=== PATIENT | female | born 1980 | race Caucasian/White ===

== ENCOUNTER 2018-03-26 06:35 | Inpatient (IN) | payer MEDICARE, OTHER ==
[~2018-03-26] VITALS: Ht 177.8 cm; Wt 120.2 kg
[~2018-03-26 06:35] MED LIST: CBD; CYCLOBENZAPRINE10 MG; DEPO-PROVE150 MG/1 M IM; GABAPENTIN300 MG PO; GLUCOPHAGE1000 MG PO; LOSARTAN-HCTZ1 EAC1 PO; PRAVASTATIN SOD20 MG PO
[2018-03-26] MEDS ORDERED: LANTUS100 UNITS/ SUB-Q (06:55)
--- NOTE | 2018-03-26 11:09 | NUR ---
PT TO FLOOR AT 11 AM WITH SUP. MART. PT ABLE TO WALK TO BED INDEPENDENTLY. RATES PAIN 3.5/10. GIVEN WARM BLANKET FOR COMFORT.
--- NOTE | 2018-03-26 12:45 | NUR ---
PT CALLED FOR PRN PAIN MEDICATION. CALLED PHARM. TO HAVE THEM FIX EMAR. ADMINISTERED 0.4 MG DILAUDID. PT DENIES CONCERNS.
--- NOTE | 2018-03-26 13:50 | NUR ---
PT DECLINED PAIN MEDS. STATED THAT PAIN WAS TOLERABLE. DECLINED MOUTH SWABS AND LIP BALM. APPEARS COMFORTABLE. SITTING IN BED ON CELL PHONE.
--- NOTE | 2018-03-26 14:33 | NUR ---
CALLED DR SOLANO REGARDING [id number] QUESTION. REASSESSED BLOOD SUGAR. STILL 214. RUSS STATED HE WOULD BE OVER SHORTLY.
--- NOTE | 2018-03-26 14:57 | NUR ---
MED REC COMPLETE
--- NOTE | 2018-03-26 17:34 | NUR ---
RUSS IN TO SEE PT. SCD'S PLACED. AT BEDSIDE. GIVEN MORE MOUTH SWABS.
--- NOTE | 2018-03-26 19:05 | NUR ---
SHIFT REPORT RECEIVED. PATIENT RESTING IN BED. APPEARS COMFORTABLE. DENIES NEEDS. IV BOLUS INFUSING PER ORDER, IV SITE WNL. CALL LIGHT IN REACH.
--- NOTE | 2018-03-26 19:05 | NUR ---
ADMINISTERED SCHEDULED MEDS WITH SMALL AMT WATER. TOLERATED WELL. BOLUS RUNNING. PT ERIKAIES MYRIAM.
--- NOTE | 2018-03-26 20:30 | NUR ---
BLOOD GLUCOSE 198, 4 UNITS NOVOLIN GIVEN PER ORDER. PATIENT REPORTS PAIN IN ABD 7/10 AFTER AMBULATING TO THE BATHROOM. 4MG PRN MORPHINE PROVIDED. EVENING MEDS GIVEN PER ORDERS. IV FLUIDS INFUSING AT 125ML/HR. PATIENT IS AAOX4. LUNGS CLEAR. ABD ROUND, SOFT, TENDER THROUGHOUT. PAIN CENTRALIZED IN RUQ. CMS INTACT. SCDS IN USE. PATIENT MOVES EASILY AND IS INDEPENDENT IN THE ROOM.
--- NOTE | 2018-03-26 22:15 | NUR ---
EVENING ABX ADMINISTERED PER ORDER. PATIENT REPORTS PAIN WELL CONTROLLED. ORDERS FOUND TO BE NPO AT MIDNIGHT, OFFERED PATIENT SOME LIGHT FOOD AND DRINK OPTIONS. PATIENT NERVOUS TO EAT, TOLERATED SOME WATER AND JELLO.
--- NOTE | 2018-03-26 22:43 | NUR ---
VITALS AND I &OS DONE AND CHARTED. FRESH ICE WATER GIVEN. BEDSIDE TABLE AND CALL LIGHT WITHIN REACH.
--- NOTE | 2018-03-27 | NUR ---
PATIENT IS NPO AT THIS TIME. CUPS REMOVED FROM BEDSIDE. PATIENT AWARE. DENIES NEEDS AT THIS TIME.
--- NOTE | 2018-03-27 01:13 | NUR ---
PATIENT REPORTS PAIN AND MILD NAUSEA. PRN MORPHINE PROVIDED. WILL CONTINUE TO MONITOR.
--- NOTE | 2018-03-27 02:00 | NUR ---
BLOOD GLUCOSE 161. 2 UNITS NOVOLIN PER ORDER. PATIENT REPORTS PAIN CONTROLLED, /. NAUSEA HAS RESOLVED. NO NEEDS AT THIS TIME.
--- NOTE | 2018-03-27 02:14 | NUR ---
VITALS AND I&OS DONE AND CHARTED. BEDSIDE TABLE AND CALL LIGHT WITHIN REACH. NOTIFIED HER RN CASANDRA OF [facility]. 99.0 PT NEEDS NOTHING AT THIS TIME.
--- NOTE | 2018-03-27 05:00 | NUR ---
PATIENT REPORTS 8/10 PAIN. APPEARS VERY UNCOMFORTABLE. STATES THAT SHE JUST GOT DONE WITH THE BATHROOM, MOVEMENT INCREASES PAIN DRAMATICALLY. PRN MORPHINE PROVIDED. PATIENT DENIES OTHER COMFORT MEASURES.
--- NOTE | 2018-03-27 06:02 | NUR ---
PATIENT SLEPT ON AND OFF THROUGHOUT THE NIGHT. PAIN CONTROLLED WITH PRN MORPHINE. NPO SINCE MIDNIGHT. BLOOD GLUCOSE CHECKS Q6H. IV FLUIDS, LR @125. INDEPENDENT IN ROOM. SURGERY SCHEDULED FOR THIS AFTERNOON. CONSENT HAS BEEN SIGNED.
--- NOTE | 2018-03-27 07:55 | NUR ---
PATIENT IN BED, CRYING IN PAIN. PATIENT REPORTS SHE KNOWS SHE CAN HAVE MORE PAIN MEDS IN 5 MIN, AT 8AM. RICHELLE DESAI NOTIFIED WARM WASHCLOTH GIVEN FOR FACE. CALL LIGHT IN REACH
--- NOTE | 2018-03-27 07:56 | NUR ---
REPORT FROM DAY SHIFT NURSE, PATIENT AWAKE IN ROOM. REPORTS " I HAD A ROUGH NIGHT AND DIDN'T SLEEP WELL". FULL BODY ASSESMENT DONE, RATES PAIN 9/10 ON PAIN SCALE. ADMINISTERED IV MORPHINE FOR PAIN CONTROL. CALL TO OR CHARGE NURSE JOHNY TO SEND MESSAGE TO DR. SOLANO TO SEE IF HEPARIN IS DESIRED ON PRIOR TO SURGERY.
--- NOTE | 2018-03-27 08:57 | NUR ---
CBG 158, DISCUSSED DIABETES REGIME WITH DR. BURCIAGA, WHO VERBALIZED TO ADMINISTER 6 UNITS OF LEVEMIR AND HOLD OTHER MEDICATIONS. PATIENT VERBALIZED UNDERSTANDING. MORPHINE APPEARS TO HAVE RESOLVED PAIN, PATIENT RESTING WATCHING TELEVISION, BREATHING EASY. RATES PAIN 2/10 ON PAIN SCALE, TOLERABLE. VS STABLE.
--- NOTE | 2018-03-27 10:03 | NUR ---
PATIENT IN BED, EYES CLOSED. VITALS AND I/O'S RECORDED. CALL LIGHT IN REACH NO OTHER NEEDS
--- NOTE | 2018-03-27 14:06 | NUR ---
RN INFORMED ME THAT PT HAS BEEN TAKEN TO SURGERY. NO FAMILY PRESENT. WILL CONTINUE TO FOLLOW NEEDED
--- NOTE | 2018-03-27 15:10 | NUR ---
03/27/18 1510 Awa Rao 1457 PATIENT ARRIVES TO PACU UNRESPONSIVE TO PAIN OR VERBAL STIMULI, ORAL AIRWAY IN PLACE. PATIENT HAS VERY SIGNIFICANT SNORING RESP, REQUIRES REPOSITIONING AND RN TO HOLD AIRWAY. MASK ON AT 10 LITERS. 1508 PATIENT OPENS EYES TO PAINFUL STIMULI, THEN BACK TO SLEEP. ORAL AIRWAY IN PLACE, MASK AT 10 LITERS. 1509 PATIENT MOVING ARMS, REACHING FOR MASK, THEN BACK TO SLEEP. ORAL AIRWAY IN PLACE.
--- NOTE | 2018-03-27 16:15 | NUR ---
PATIENT TO FLOOR FROM SURGERY, RICHELLE LOZANO AND LLOYD IN ROOM FOR VITALS AND REPORT. CALL LIGHT IN REACH
--- NOTE | 2018-03-27 16:41 | NUR ---
PATIENT TO FLOOR FROM RECOVERY, VERBAL REPORT FROM ELBA RN. PATIENT VERY DROWSY, WILL RESPOND TO VERBAL STIMULI, FOLLOWING COMMANDS, BUT FALLS BACK TO SLEEP EASILY. PATIENT SATURATIONS DECLINED TO MID 80% CALLED RT TO ROOM, PLACED NASAL TRUMPET TO PROTECT AIRWAY, PATIENT TOLERATED WELL AND VERBALIZED OKAY TO INSERT, CONTINUES TO BE ON 2L NC. PUNCTURE SITES C/D/I. PATIENT REQUESTED TO URINATE, PROVIDED PATIENT WITH FRACTURE SALAS AND ABLE TO VOID 150 CLEAR YELLOW URINE. SKIN COOL TO TOUCH, PROVIDED WARM BLANKET. PATIENT WILL USE IS WITH INSTRUCTION, AND COUGH AND DEEP BREATHE. IV FLUIDS INFUSING 125ML/HR. [facility] [address] BURCIAGA, SLIDING SCALE 6 UNITS ADMINISTERED. ALSO DISCUSSED ELEVATED BP, ORDERS TO ADMINISTER 1400 DOSE OF LOSARTIN WHEN MORE AWAKE AND ABLE TO DRINK SOME FLUIDS.
--- NOTE | 2018-03-27 16:43 | HP ---
[facility] [address], [place] [address] Signed ADMISSION DATE: 03/26/2018 REASON FOR ADMISSION: Acute calculous cholecystitis and diabetes. HISTORY OF PRESENT ILLNESS: This obese 38-year-old white woman with a BMI of 38 has had right upper abdominal and central abdominal pain since Friday (today is ). Her pain started originally and has been persistent and unrelenting and has worsened. She presented to the emergency room at approximately 7 a.m., where she was evaluated by Dr. Wood, and noted to have findings suggestive of acute cholecystitis. Evaluation included a gallbladder ultrasound, which showed gallstones. Liver enzymes and CBC were normal, however. On the ultrasound, there were no other typical features of acute cholecystitis, specifically no gallbladder wall thickening, ductal dilatation or choledocholithiasis. There was fatty liver noted as well. I accept the patient in direct admission to the hospital for acute calculous cholecystitis. PAST MEDICAL HISTORY: Does include diabetes mellitus, as well as hypertension. CURRENT MEDICINES: Include, 1. Gabapentin for chronic pain. 2. Losartan. 3. Hydrochlorothiazide. 4. Medroxyprogesterone acetate (Depo-Provera). 5. Pravastatin. 6. Metformin. 7. Lantus insulin. ALLERGIES: She has allergies to Bactrim causing airway problems she says. SOCIAL HISTORY: She does not smoke. PAST SURGICAL HISTORY: Surgical history includes back operation and appendectomy. Notably, she is "disabled" related to chronic back pain. Electronically Signed By: HUNG SOLANO MD 03/27/18 4553 PATIENT NAME: ALLIE FERNÁNDEZ HISTORY AND PHYSICAL DATE OF : 78 REPORT #: [id number] PHYSICIAN: HUNG SOLANO MD PCP: DARRELL AMOS REPORT IS CONFIDENTIAL AND NOT TO BE RELEASED WITHOUT AUTHORIZATION [facility] [address] [place], [place] [address] Signed SOCIAL HISTORY: She is disabled, but also and has one 2-year-old child. She does smoke every day. Her last menstrual period was March 11, 2016. REVIEW OF SYSTEMS: She denies any shortness of breath. Her pain is mostly in the epigastric and right subcostal area. She is afraid to eat due to the pain. PHYSICAL EXAMINATION: GENERAL: An obese white woman with slightly dry mucous membranes. Trachea is midline. There is no carotid bruit. She does have additional hair in the neck areas suggestive of a polycystic ovary syndrome present, though that is not an established diagnosis. CHEST: Clear. HEART: Regular. ABDOMEN: Obese, but soft. There is marked tenderness in the epigastric and subcostal area. There is no ascites. EXTREMITIES: Show no clubbing, cyanosis, or edema. LABORATORY DATA: Show a white count of 6.5, hematocrit 38.7, platelets are 189,000. Chem profile shows a potassium of 3.3, bicarb of 18, creatinine 0.71, glucose was 320. Liver enzymes showed bilirubin elevated at 3.5. Liver enzymes were normal. Alkaline phosphatase was 66. Lipase was 20. Beta HCG was negative. Abdominal ultrasound was performed at approximately 9 a.m., images were reviewed confirming a somewhat dilated gallbladder, and a few shadowing gallstones in the midportion of the gallbladder. I see no sign of intrahepatic ductal dilatation. ASSESSMENT: The patient clearly has acute cholecystitis. With her diabetes, this is in a more input as many diabetic patients have visceral neuropathy. She has had symptoms since at least Friday, nearly four days at this point. She is admitted for further resuscitation and recommendation was made to her for cholecystectomy. Both laparoscopic and open techniques were discussed with her. Alternative therapies are lacking in this situation. She needs additional fluids, continued parenteral antibiotics and will need additional management of her blood glucose given her hyperglycemia. We will probably consult hospitalist for assistance in that regard, as well as recommendations on hypertension control. We will plan for operation tomorrow once she is clinically stabilized. Electronically Signed By: HUNG SOLANO MD 03/27/18 1643 PATIENT NAME: ALLIE FERNÁNDEZ HISTORY AND PHYSICAL DATE OF : 78 REPORT #: [id number] PHYSICIAN: HUNG SOLANO MD PCP: DARRELL AMOS REPORT IS CONFIDENTIAL AND NOT TO BE RELEASED WITHOUT AUTHORIZATION [address] [address] Signed MD DASH Regalado/JUAN DIEGOL /[id number] cc: DEB Major MD Copies: DARRELL AMOS WILLIAM S MD ~ Electronically Signed By: HUNG SOLANO MD 03/27/18 1643 PATIENT NAME: ALLIE FERNÁNDEZ HISTORY AND PHYSICAL DATE OF : 78 REPORT #: [id number] PHYSICIAN: HUNG SOLANO MD PCP: DARRELL AMOS REPORT IS CONFIDENTIAL AND NOT TO BE RELEASED WITHOUT AUTHORIZATION
--- NOTE | 2018-03-27 17:24 | EKG ---
[facility] [address] [facility] [place], [place] [address] Signed Normal sinus rhythm Possible Inferior infarct (cited on or before 29-DEC-2017) Abnormal ECG When compared with ECG of 29-DEC-2017 14:49, No significant change was found Confirmed by JAIDEN BURCIAGA MD ([id number]) on 03/27/2018 5:24:14 PM Electronically Signed By: JAIDEN BURCIAGA MD 03/27/18 1724 PATIENT NAME: ALLIE FERNÁNDEZ Electrocardiogram DATE OF : 78 PHYSICIAN: JAIDEN BURCIAGA MD REPORT #: [id number] REPORT IS CONFIDENTIAL AND NOT TO BE RELEASED WITHOUT AUTHORIZATION
--- NOTE | 2018-03-27 18:00 | NUR ---
PATIENT UP TO BATHROOM VOIDED 800 DARK URINE. COMPLAINTS OF FEELING HOT AND NAUSIA. PATIENT BACK TO BED AND SYMPTOMS RELIEVED. TRMARINAET REMOVED 1730, WHEN TO ROOM WHO HAD CONVERSATION WITH PATIENT ABOUT LIVER CIRRHOSIS AND WHAT DR. SOLANO HAD DISCUSSED WITH HIM ON THE PHONE. PATIENT STILL VERY DROWSY, DISCUSSED FUNCTION OF A GALL BLADDER WITH PATIENT AND FAMILY. CONTINUIOUS PULSE OX ON, SCDS ON. 3L NC 93%, POST OP VS STABLE. PATIENT EASY TO WAKE WITH VERBAL CUES. PUNCTURE SITES C/D/I.
--- NOTE | 2018-03-27 19:00 | NUR ---
SHIFT REPORT RECEIVED. PATIENT RESTING IN BED. IS ALERT AT THIS TIME. 3L NC IN USE. O2 SAT 94%. SHE REPORTS FEELING MORE AWAKE NOW AND REQUEST TO USE THE BATHROOM. SBA TO BATHROOM. PATIENT TOLERATED WELL. SHE REPORTS SLIGHT NAUSEA BUT STATES IT GOES AWAY WHEN SHE IS LAYING DOWN. EMESIS BAG IN REACH. PAIN WELL CONTROLLED. NO OTHER NEEDS AT THIS TIME. CONTINUOUS PULSE OX IN USE.
--- NOTE | 2018-03-27 20:15 | NUR ---
PATIENT WAS SLEEPING SOUNDLY. SHE REPORTS FEELING HOT AND NAUSEOUS. BLOOD GLUCOSE 296, 8 UNITS NOVOLIN GIVEN. PATIENT TOLERATING 1L NC WITH O2 SAT 95%. SHE IS DROWSEY BUT ORIENTED. HOB ELEVATED. 12.5 MG PHENERGAN GIVEN OVER 10MINS ON IV PUMP. PATIENT ON CONTINUOUS PULSE OX. WILL CONTINUE TO MONITOR.
--- NOTE | 2018-03-27 20:36 | NUR ---
ROUNDED CHARGE. PATIENT IS RESTING IN BED WITH EYES CLOSED. PATIENT IS ON RA. PATIENTS PULSE OX READINGS ARE WNL. RICHELLE GUAJARDO IN THE ROOM. CALL LIGHT IN REACH.
--- NOTE | 2018-03-27 20:52 | NUR ---
PATIENT'S BP WAS FOUND TO BE ELEVATED BY RIGOBERTO DESAI. RN PERFORMED MANUAL BP WITH LARGE BP CUFF ON UPPER ARM. FOUND TO BE CONSISTENT WITH VS MACHINE FINDINGS. 164/108 WITH HR OF 102. NOTIFIED. WILL REASSESS IN 30MINS PER MD REQUEST.
--- NOTE | 2018-03-27 21:20 | NUR ---
EVENING MEDS GIVEN PER ORDER. PATIENT WAS SLEEPING SOUNDLY. 1L NC, 98% O2 SAT. HOB ELEVATED. WOKE EASILY TO VOICE AND TOUCH. DENIES PAIN, STATES "JUST A LITTLE SORE'. ASSISTED PATIENT UP TO BATHROOM, SHE AMBULATED SLOWLY BUT FELT STEADY ON HER FEET. LAP SITES COVERED WITH STERI STRIPS, SMALL AMOUNT BLOOD NOTED AT SITE. CMS INTACT, SCDS IN USE. IV FLUIDS INFUSING PER ORDER. SITE WNL. NO NEEDS AT THIS TIME. SLIGHTLY NAUSEOUS WITH MOVEMENT. EMESIS BAG AVAILBALE. PULSE OX 96% ON ROOM AIR, LEFT NC OFF AT THIS TIME. WILL CONTINUE TO MONITOR.
--- NOTE | 2018-03-27 21:30 | NUR ---
RIGOBERTO FEBRUARY PERFORMED MANUAL BP, 140/90. AWARE.
--- NOTE | 2018-03-27 22:46 | NUR ---
ABX ADMINISTERED. PATIENT SLEEPING SOUNDLY, WOKE EASILY TO VOICE. DENIED PAIN OR NAUSEA. O2 SAT 96% ON ROOM AIR. IV FLUIDS INFUSING PER ORDER. CALL LIGHT IN REACH.
--- NOTE | 2018-03-28 00:30 | NUR ---
ASSITED PATIENT TO THE BATHROOM. SHE FELT MORE STEADY THIS TIME. REPORTS PAIN IS MINIMAL. JUST SORE. SHE IS GETTING UP TO GO TO THE BATHROOM RATHER FREQUENTLY WITH LARGE AMOUNTS OF URINE. SHE IS TOLERATING ORAL FLUIDS AND IS EATING SOME JELLO. TOLERATING ROOM AIR.
--- NOTE | 2018-03-28 02:02 | NUR ---
VITALS AND I&OS DONE AND CHARTED. BEDSIDE TABLE AND CALL LIGHT WITHIN REACH. PT NEEDS NOTHING ELSE AT THIS TIME.
--- NOTE | 2018-03-28 02:30 | NUR ---
PATIENT IS MORE ALERT NOW. SHE IS ASKING QUESTIONS ABOUT HER SURGERY, POSSIBLE DISCHARGE, AND THE FINDINGS FROM HER SURGERY RELATED TO HER LIVER. VERBAL EDUCATION AND PLAN OF CARE PROVIDED. PATIENT IS FEELING MORE PAINFUL NOW, WITH MINIMAL NAUSEA. PROVIDED PRN PERCOCET AND ZOFRAN. PATIENT EATING A SECOND JELLO. DRINKING ORAL FLUIDS TOO. BLOOD GLUCOSE WAS 264, 6 UNITS NOVOLIN PER ORDERS.
--- NOTE | 2018-03-28 04:50 | NUR ---
PATIENT UP TO BATHROOM INDEPENDENTLY THIS TIME. SHE IS MUCH MORE ALERT AND MOVING EASILY. SHE IS HOPING FOR DISCHARGE TODAY. PAIN WELL CONTROLLED AT THIS TIME. MINIMAL APPETITE BUT TOLERATING CLEAR LIQUIDS. NO MORE NAUSEA.
--- NOTE | 2018-03-28 07:01 | NUR ---
PATIENT WAS VERY DROWSEY MOST OF THE SHIFT. OUTPUT QS. NAUSEA IMPROVED. TOLERATING CLEARS AND FULL LIQUID. ADA REGULAR FOR BREAKFAST. PRN PERCOCET X1. PAIN IS MINIMAL 3-/. IV ABX. LAP SITES X5 W/STERI STRIPS, WNL. SCDS. MUCH MORE ALERT THIS MORNING. INDEPENDENT IN ROOM.
--- NOTE | 2018-03-28 07:09 | NUR ---
SPOKE TO . PATIENT SALINE LOCKED NOW. SHE WAS REQUESTING A SHOWER, HE SAYS NOT UNTIL TOMORROW.
--- NOTE | 2018-03-28 10:00 | NUR ---
PATIENT UP AMBULATING IN HALLS. COMPLAINTS OF DULL ACHE. EATING REGULAR FOOD. NO NAUSEA OR VOMITING. PATIENT WIPED SELF DOWN. VS STABLE, INSCION SITES APPEARS C/D/I WITH STERI STRIPS INTACT. FULL BODY ASSESMENT DONE.
[2018-03-28] MEDS ORDERED: IBUPROFEN400 MG PO (12:01)
[2018-03-28] MEDS ORDERED: OXYCODONE HCL5 MG PO (12:01)
--- NOTE | 2018-03-28 12:18 | OR ---
[facility] [address], [place] [address] Signed DATE OF OPERATION: 03/27/2018 SURGEON: Hung Solano MD PREOPERATIVE DIAGNOSES: 1. Acute calculous cholecystitis. 2. Morbid obesity. POSTOPERATIVE DIAGNOSES: 1. Acute calculous cholecystitis. 2. Morbid obesity. 3. Unexpected stage IV cirrhosis of liver (advanced nodular cirrhosis). PROCEDURE: 1. Laparoscopic cholecystectomy with cholangiogram (prolonged complicated and difficult). 2. Surgeon-directed fluoroscopy. 3. Laparoscopic liver biopsy. ANESTHESIA: General endotracheal Hung Bolaños CRNA. INDICATION: This 38-year-old white woman is a patient of [facility], and presented to the emergency room yesterday with severe right upper abdominal pain. A gallbladder ultrasound was performed, which showed gallstones within the gallbladder, and distended gallbladder wall. She has been fluid resuscitated and given intravenous antibiotics, and prepared for consideration of cholecystectomy for acute calculous cholecystitis. It is notable that her bilirubin preoperatively is 3.7, but other actual liver enzymes are normal including alkaline phosphatase. Platelet count was 125,000. The patient understands the risks of bleeding, infection, need for open procedure and other unforeseen complications, including need for common duct exploration and wished to proceed with operation. FINDINGS: There was a small amount of abdominal ascites upon entry into the abdomen. It quite clearly was advanced cirrhosis of the liver. The gallbladder indeed was quite markedly inflamed and distended. The medial segment of the left lobe of the liver was somewhat cumbersome in relation to the gallbladder itself. With intensely meticulous care the Electronically Signed By: HUNG SOLANO MD 03/28/18 1218 PATIENT NAME: ALLIE FERNÁNDEZ OPERATIVE REPORT DATE OF : 78 REPORT #: [id number] PHYSICIAN: HUNG SOLANO MD PCP: DARRELL AMOS REPORT IS CONFIDENTIAL AND NOT TO BE RELEASED WITHOUT AUTHORIZATION [facility] [address], [place] [address] Signed gallbladder was excised laparoscopically from a top-down configuration. Cholangiogram was performed, which showed no evidence of filling defect of the biliary tree. A relatively long cystic duct. The operation was extremely complicated on the basis of fibrosis of the liver and so forth, but was accomplished safely. It took four times longer than usual for sure. DESCRIPTION OF PROCEDURE: The patient was brought to the operating room, given a general endotracheal anesthetic. Preoperative antibiotic Ancef had been given. Sequential compression device stockings used. Heparin was not given, given her marginal platelet count of 125,000. After satisfactory general endotracheal anesthesia, the abdomen was prepared with a chlorhexidine solution, and draped sterilely. She is quite markedly obese. The infraumbilical incision was made and using an open Fely cannula technique pneumoperitoneum was achieved to a level of 14 mmHg of carbon dioxide gas. Entry into the abdomen was notable for some clear ascites in the peritoneal cavity, and what appeared to be somewhat dilated umbilical vein in the region of the umbilicus. There was no untoward bleeding, however. Pneumoperitoneum was achieved to level 14 mmHg of carbon dioxide gas. Intraabdominal inspection undertaken showed a small amount of ascites, but marked and impressive nodular changes of the liver consistent with advanced cirrhosis. The gallbladder itself was definitely markedly inflamed. It is quite distended as well. At this point consideration was made for possible open cholecystectomy given her advanced cirrhosis and mindful of her acute cholecystitis. On the other hand, it would be preferable for recovery standpoint based on her obesity and ascites if the laparoscopic approach could be safely accomplished. On that basis I proceeded with a laparoscopic approach. Three additional trocars were placed in usual configuration in the subxiphoid, right midclavicular, and right anterior axillary line. The gallbladder was tense, distended, and although it could be grasped and elevated, the stiffness of the liver related to the cirrhosis precluded much cephalad traction. On that basis, a trocar device was used to decompress dark clean bile from the gallbladder. The puncture site was secured with an endo-loop to minimize biliary leakage in the face of mild ascites. The gallbladder was grasped in the midportion and retracted laterally. Attempts at dissection in the infundibulum were quite unsuccessful due to hypertrophy of a regional liver lobe on the left side of the gallbladder fossa. An additional 5 mm port was placed in the epigastric area allowing for a fan retractor for better exposure, but it was unsuccessful. On that basis, it was deemed most appropriate to dissect the gallbladder from a top-down configuration. Electronically Signed By: HUNG SOLANO MD 03/28/18 1218 PATIENT NAME: ALLIE FERNÁNDEZ OPERATIVE REPORT DATE OF : 78 REPORT #: [id number] PHYSICIAN: HUNG SOLANO MD PCP: DARRELL AMOS REPORT IS CONFIDENTIAL AND NOT TO BE RELEASED WITHOUT AUTHORIZATION [address] [address] Signed The gallbladder was grasped cephalad and peritoneum, and medial superior aspect of the gallbladder was incised with electrocautery and with meticulous care the gallbladder was dissected free from the liver bed in a top-down configuration. A fan retractor was ultimately placed to retract the liver cephalad through a lateral port site. I had intended to continue dissection until and unless specific impediment to further dissection was encountered, specifically bleeding or other anatomic factors, but with extreme caution and care dissection carried down largely in the avascular plane unfurling the largely intrahepatic gallbladder more fully down to the infundibulum. In this region a few small blood vessels, which appeared to be rather dilated were carefully secured with clips and ultimately the infundibulum and cystic duct could be identified. I was quite astounded at this myself, as the dissection was impressively difficult. By this point, the cystic duct was well demonstrated. A clip was applied across the gallbladder, and cystic duct junction and a transverse choledochotomy made in the cystic duct. Retrograde milking of the cystic duct showed egress of clear bile. Using the Andrew type cholangiocatheter intraoperative cholangiography was undertaken showing free flow of contrast in biliary tree with prompt emptying into the duodenum. Retrograde filling of the more proximal biliary tree was normal. The cystic duct was rather elongated with plenty of room to apply clips without encumbrance of the common hepatic duct. The catheter was removed, and the cystic duct was triply clipped and divided. The gallbladder was placed in an endobag, and extracted through the infraumbilical port site, and opened on the back table and found to have multiple small dark black gallstones. Irrigation of the hepatic space showed good hemostasis. Raheel hemostatic agent was insufflated into the subhepatic space nevertheless, after copious irrigation was completed. Excess irrigation fluid was suctioned free. I had considered placement of a drain, but given the high probability of worsening of ascites postoperatively, the drain was held in abeyance, and not placed after all. Plans were then made for liver biopsy. Through the epigastric area under direct visualization, a biopsy device was used to biopsy the medial segment of left lobe of the liver. A good core was obtained. The puncture site was secured with electrocautery without problem. The trocars were then removed under direct visualization showing no sign of bleeding. The infraumbilical fascial incision was reapproximated with interrupted 0 Vicryl suture. All wounds were copiously irrigated with saline solution. Skin closed with interrupted 3-0 Vicryl. Special care was made to provide watertight closure of the incisions on the reasonably high probability of postoperative ascites to some degree given the cirrhosis and general anesthetic and so forth. The operation was definitely prolonged, complicated, and difficult lasting four times longer than usual. Electronically Signed By: HUNG SOLANO MD 03/28/18 1218 PATIENT NAME: ALLIE FERNÁNDEZ OPERATIVE REPORT DATE OF : 78 REPORT #: [id number] PHYSICIAN: HUNG SOLANO MD PCP: DARRELL AMOS REPORT IS CONFIDENTIAL AND NOT TO BE RELEASED WITHOUT AUTHORIZATION [address] [address] Signed MD DASH Regalado/MARCIANO /[id number] cc: MD Jaiden Arciniega, MD Jose Miguel Wood, DEB Mcduffie Copies: REBEL TIM MD,JAIDEN WOOD,DARRELL CORTEZ MD ~ Electronically Signed By: HUNG SOLANO MD 03/28/18 1218 PATIENT NAME: ALLIE FERNÁNDEZ OPERATIVE REPORT DATE OF : 78 REPORT #: [id number] PHYSICIAN: HUNG SOLANO MD PCP: DARRELL AMOS REPORT IS CONFIDENTIAL AND NOT TO BE RELEASED WITHOUT AUTHORIZATION
--- NOTE | 2018-03-29 13:01 | DS ---
[facility] [address], [place] [address] Signed ADMISSION DATE: 03/26/2018 DISCHARGE DATE: 03/28/2018 REASON FOR ADMISSION: This obese (BMI 38) 38-year-old white woman is admitted to the hospital with clinical findings of acute calculous cholecystitis. HISTORY OF PRESENT ILLNESS: She presented to the emergency room and was evaluated by Dr. Jose Miguel Wood. The findings clinically are suggestive of acute cholecystitis. Her pain had started on Friday (day of admission, ). Evaluation included gallbladder ultrasound, which showed gallstones. Liver enzymes and CBC were normal; however, bilirubin was elevated to 3.7. She had relatively low platelets of 123,000. PAST MEDICAL HISTORY: She has a past medical history of diabetes mellitus, as well as hypertension. PAST SURGICAL HISTORY: Surgical history included history of back operation, appendectomy. She is considered disabled related to chronic back pain. PERTINENT PHYSICAL EXAMINATION: GENERAL: An obese white woman, slightly dry mucous membranes. NECK: Trachea midline without carotid bruit. She has additional hair of the anterior neck suggestive of polycystic ovarian syndrome not an established diagnosis. CHEST: Clear. HEART: Regular. ABDOMEN: Obese, but soft. There is marked tenderness in the epigastric and right subcostal area. There is no ascites. She has no clubbing, cyanosis, or edema. LABORATORY STUDIES: Showed a white count of 6.5, hematocrit 38.7, platelets 189,000, subsequently 123,000, Chem profile showed potassium of 3.3, a bicarb of 18, creatinine 0.71, glucose 320. Liver enzymes showed bilirubin elevated at 3.5. Liver enzymes were otherwise normal. Alkaline phosphatase 66, lipase was 20. Beta HCG negative. HOSPITAL COURSE: She was admitted for acute calculous cholecystitis, and mindful of her diabetes, obesity, and so forth, consultation was undertaken with Dr. Brooks the hospitalist for blood sugar management. An insulin sliding scale was initiated. Electronically Signed By: HUNG SOLANO MD 03/29/18 1301 PATIENT NAME: ALLIE FERNÁNDEZ DISCHARGE SUMMARY DATE OF : 78 REPORT #: [id number] PHYSICIAN: HUNG SOLANO MD PCP: DARRELL AMOS REPORT IS CONFIDENTIAL AND NOT TO BE RELEASED WITHOUT AUTHORIZATION [facility] [address], [place] [address] Signed After adequate fluid resuscitation, she went to operation on March 27, 2018. Laparoscopy was performed, which showed the unexpected findings of low-grade ascites and markedly advanced nodular cirrhosis of the liver. The gallbladder was acutely inflamed. A laparoscopic cholecystectomy with cholangiogram was able to be performed despite the bulky hypertrophied segmentation of the liver, and marked nodularity of the liver related to cirrhosis. A top-down technique was used and cholangiogram was performed which was normal. Laparoscopic liver biopsy was performed as well. The operation was prolonged, complicated, and difficult on the basis of her obesity and cirrhosis. Postoperatively she did quite well. She tolerated a regular diet soon after operation. Lab studies done today following operation showed hematocrit of 37.7, white count of only 7.8, platelets a 192,000, an INR of 1.0. Hepatitis serologies are pending and Chem profile post op showed a total bilirubin of 3.41, which was mostly indirect UNconjugated bilirubin. Her liver enzymes remained normal otherwise with alkaline phosphatase of 69. Her LDH was 214. SheAs tolerated discharge criteria and is doing well. Despite her underlying cirrhosis she is considered a reasonable candidate for discharge at this time. It remains uncertain the source of her advanced liver disease (cirrhosis). She has not had IV drug use in the past. Has never had a transfusion and has not had an alcohol abuse history. She does have distant history of significant longstanding back pain, for which oral analgesics, including Tylenol were used --possibly in excess. The liver biopsy and serologies are pending. She will be seen as expected in the next few weeks in the office, and we will review further steps to take regarding cirrhosis. She was instructed to avoid lifting 10 pounds for the next month, to keep Steri-Strips on. She is permitted to shower tomorrow. DISCHARGE MEDICATIONS: 1. Ibuprofen 400 mg p.o. q.6 hours as needed for pain. 2. Oxycodone 5 mg 1-2 p.o. q.4 hours p.r.n. pain, #20. She will continue with her gabapentin 300 mg p.o. t.i.d., metformin 1000 mg p.o. two times a day. 3. Losartan/hydrochlorothiazide 100/25 one p.o. daily. 4. Depo-Provera injection q. three months. 5. Pravastatin 20 mg p.o. daily. 6. Lantus insulin 12 units subcutaneous at bedtime. She will discontinue Flexeril at Electronically Signed By: HUNG SOLANO MD 03/29/18 1301 PATIENT NAME: ALLIE FERNÁNDEZ DISCHARGE SUMMARY DATE OF : 78 REPORT #: [id number] PHYSICIAN: HUNG SOLANO MD PCP: DARRELL AMOS REPORT IS CONFIDENTIAL AND NOT TO BE RELEASED WITHOUT AUTHORIZATION [facility] [address] [place] [address] Signed this time. FOLLOW UP PLAN: She will return to see me as previously described in 4-6 weeks. I have asked to make a plan with her primary provider DEB Angulo in the next week or two as well. She will avoid hepatotoxic drugs, including Tylenol for the time being, and will not drink alcohol. DISCHARGE DIAGNOSES: 1. Acute calculus cholecystitis with occult advanced cirrhosis of liver. 2. Status post laparoscopic cholecystectomy (top-down method with cholangiogram) normal, and Biopty gun biopsy of liver. 3. Chronically elevated bilirubin 3.1. 4. Morbid obesity. 5. Distant history of chronic back pain with ongoing disability. 6. Diabetes mellitus. 7. Childbirth (child [age] years of age). MD DASH Regalado/MARCIANO /[id number] cc: DEB Major MD Lohith Veerappa Reddy, MD Copies: DARRELL AMOS WILLIAM S MD REDDY, LOHITH VEERAPPA MD ~ Electronically Signed By: HUNG SOLANO MD 03/29/18 1301 PATIENT NAME: ALLIE FERNÁNDEZ DISCHARGE SUMMARY DATE OF : 78 REPORT #: [id number] PHYSICIAN: HUNG SOLANO MD PCP: DARRELL AMOS REPORT IS CONFIDENTIAL AND NOT TO BE RELEASED WITHOUT AUTHORIZATION
== END 2018-03-28 14:00 | disposition home or self-care (01) | DRG 418 ==
LOC: ED 06:35 → MS 10:21
PROVIDERS: ADMIT Surgery
PROC: 0FB24ZX Excision of Left Lobe Liver, Percutaneous Endoscopic Approach, Diagnostic (ICD-10-PCS; 2018-03-27)
PROC: BF101ZZ Fluoroscopy of Bile Ducts using Low Osmolar Contrast (ICD-10-PCS; 2018-03-27)
PROC: 0FT44ZZ Resection of Gallbladder, Percutaneous Endoscopic Approach (ICD-10-PCS; principal; 2018-03-27 13:00)
DX: K80.00 Calculus of gallbladder with acute cholecystitis without obstruction (principal); R18.8 Other ascites; E66.01 Morbid (severe) obesity due to excess calories; E11.65 Type 2 diabetes mellitus with hyperglycemia; I10 Essential (primary) hypertension; G89.29 Other chronic pain; K74.69 Other cirrhosis of liver; F17.210 Nicotine dependence, cigarettes, uncomplicated; E80.6 Other disorders of bilirubin metabolism; M54.9 Dorsalgia, unspecified; I25.10 Atherosclerotic heart disease of native coronary artery without angina pectoris; E78.5 Hyperlipidemia, unspecified; Z79.4 Long term (current) use of insulin; Z79.891 Long term (current) use of opiate analgesic; Z79.899 Other long term (current) drug therapy; Z68.38 Body mass index [BMI] 38.0-38.9, adult; Z88.1 Allergy status to other antibiotic agents; Z88.2 Allergy status to sulfonamides
CPT/HCPCS: 00790; 36415; 74300; 76705; 80053; 81001; 82247; 82465; 83615; 83690; 83735; 84100; 84478; 84550; 84703; 85025; 85610; 86704; 86706; 86709; 86803; 87340; 88304; 88307; 88313; 93005; 93010; 94762; J0330; J0690; J1100; J1170; J1885; J2250; J2270; J2405; J2543; J2550; J2704; J2765; J3010; J7030; J7120; Q9967

== ENCOUNTER 2019-09-09 15:39 | Emergency (ER) | payer MEDICARE, OTHER ==
[~2019-09-09] VITALS: Ht 177.8 cm; Wt 112.5 kg
--- OUTSIDE RECORDS SUMMARY | ~2019-09-09 | XMS | Encounter Summary ---
Demographics + + + | Address | [address] | | | [place] [address] | + + + | Home Phone | | + + + | Preferred Language | Unknown | + + + | Marital Status | | + + + | Mormonism Affiliation | NON | + + + | Race | White | + + + | Ethnic Group | Not or | + + + Author + + + | Author | [facility] | + + + | Organization | [facility] | + + + | Address | Unknown | + + + | Phone | Unavailable | + + + Support + + +---------+ + | Name | Relationship | Address | Phone | + + +---------+ + | Abhi Justice | ECON | Unknown | | + + +---------+ + Care Team Providers + +------+ + | Care Merchandise Director Name | Role | Phone | + +------+ + | Christofer Holguin NP | PCP | | + +------+ + Encounter Details +--------+ + + + + | Date | Type | Department | Care Team | Description | +--------+ + + + + | 06/24/ | Transcribe | [facility] | Transcribe | | | 2019 | Orders | [facility] [address] | Encounter, Provider, | | | | | Dany Garza Mailcode: | [address] | | | | | [address] [place] [facility] | [place] [address] | | | | | [facility], | | | | | | [address] | | | | | | [place], [place] | | | | | | [address] | | | | | | [phone] | | | +--------+ + + + + Social History + +-------+ +--------+------+ | Tobacco Use | Types | Packs/Day | Years | Date | | | | | Used | | + +-------+ +--------+------+ | Current Every Day | | 0.5 | | | | Smoker | | | | | + +-------+ +--------+------+ + +---+---+---+ | Smokeless Tobacco: | | | | | Never Used | | | | + +---+---+---+ + + +---------+ + | Alcohol Use | Drinks/Week | oz/Week | Comments | + + +---------+ + | No | | | | + + +---------+ + + + + | Sex Assigned at | Date Recorded | | | | + + + | Not on file | | + + + + + + + | Job Start Date | Occupation | Industry | + + + + | Not on file | Not on file | Not on file | + + + + + + + + | Travel History | Travel Start | Travel End | + + + + + + | No recent travel history available. | + + documented as of this encounter Plan of Treatment +--------+ + + + + | Date | Type | Specialty | Care Team | Description | +--------+ + + + + | 09/22/ | Office | Hepatology | Eva Hogan, | | | 2018 | Visit | | [facility] [address] | | | | | | [address] | | | | | | [place] | | | | | | [address] | | | | | | [phone] | | | | | | | | +--------+ + + + + | 09/22/ | Hospital | | Carroll Sosa MD | | | 2018 | Encounter | | [address] | | | | | | [facility] [place], | | | | | | [place] [address] | | | | | | [phone] | | | | | | | | +--------+ + + + + | 09/22/ | Appointment | Procedural Care Unit | | | | 2018 | | | | | +--------+ + + + + | 09/22/ | Appointment | Gastroenterology | Carroll Sosa MD | | | 2018 | | | [address] | | | | | | [place], | | | | | | [place] [address] | | | | | | [phone] | | | | | | | | +--------+ + + + + +------+ +--------+ + + | Name | Type | Priori | Associated Diagnoses | Order Schedule | | | | ty | | | +------+ +--------+ + + | EGD | Procedures | Routin | Liver cirrhosis | Expected: 06/24/2019 | | | | e | secondary to FISH | | | | | | (HCC) | | +------+ +--------+ + + documented as of this encounter Visit Diagnoses + + | Diagnosis | + + | 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
--- OUTSIDE RECORDS SUMMARY | ~2019-09-09 | XMS | Clinical Summary ---
Demographics + + + | Address | [address] | | | [place] [address] | + + + | Home Phone | | + + + | Preferred Language | Unknown | + + + | Marital Status | | + + + | Shinto Affiliation | NON | + + + | Race | White | + + + | Ethnic Group | Not or | + + + Author + + + | Author | NON REVENUE LOCATIONS | + + + | Organization | NON REVENUE LOCATIONS | + + + | Address | Unknown | + + + | Phone | Unavailable | + + + Support + + +---------+ + | Name | Relationship | Address | Phone | + + +---------+ + | Abhi Cordero | ECON | Unknown | | + + +---------+ + Care Team Providers + +------+ + | Care Pediatric Physician Assistant Name | Role | Phone | + +------+ + | Christofer Holguin NP | PCP | | + +------+ + Source Comments BETO is fully live on both [facility] Ambulatory and [facility] InPatient.[facility] Allergies + + + + + + | Active Allergy | Reactions | Severity | Noted | Comments | | | | | Date | | + + + + + + | Sulfamethoxazole | Unknown | | 06/12/20 | | | | | | 18 | | + + + + + + Medications + + + +---------+------+------+-------+ | Medication | Sig | Dispensed | Refills | Star | End | Statu | | | | | | t | Date | s | | | | | | Date | | | + + + +---------+------+------+-------+ | pravastatin 20 mg | Take 20 mg by mouth | | 0 | | | Activ | | oral tablet | once daily. | | | | | e | + + + +---------+------+------+-------+ | losartan potassium | Take by mouth. | | 0 | | | Activ | | (LOSARTAN ORAL) | | | | | | e | + + + +---------+------+------+-------+ | GABAPENTIN ORAL | Take by mouth. | | 0 | | | Activ | | | | | | | | e | + + + +---------+------+------+-------+ | exenatide | Inject 2 mg under | | 0 | | | Activ | | (BYDUREON) 2 mg/0.65 | the skin (SUBC) once | | | | | e | | mL subcutaneous pen | weekly. | | | | | | | injector | | | | | | | + + + +---------+------+------+-------+ | nadolol 20 mg oral | Take 2 tablets by | 60 | 5 | 05/10 | | Activ | | tablet | mouth once daily at | tablet | | 06/29 | | e | | | bedtime. | | | 19 | | | + + + +---------+------+------+-------+ Active Problems Not on file Encounters +--------+ + + + + | Date | Type | Specialty | Care Team | Description | +--------+ + + + + | 07/20/ | Telephone | Hepatology | Eva Hogan, | Radiology Order | | 2018 | | | RENEE-Darrius | | +--------+ + + + + | 06/24/ | Transcribe | Gastroenterology | Transcribe | | | 2019 | Orders | | Encounter, Provider, | | | | | | MD | | +--------+ + + + + from Last 3 Months Social History + +-------+ +--------+------+ | Tobacco [...] recent travel history available. | + + Last Filed Vital Signs + + + + + | Vital Sign | Reading | Time Taken | Comments | + + + + + | Blood Pressure | 140/91 | 02/08/2019 11:00 AM | | | | | PDT | | + + + + + | Pulse | 87 | 02/08/2019 11:00 AM | | | | | PDT | | + + + + + | Temperature | 37.3 C (99.1 F) | 02/08/2019 11:00 AM | | | | | PDT | | + + + + + | Respiratory Rate | 18 | 02/08/2019 11:00 AM | | | | | PDT | | + + + + + | Oxygen Saturation | - | - | | + + + + + | Inhaled Oxygen | - | - | | | Concentration | | | | + + + + + | Weight | 115.2 kg (254 lb) | 02/08/2019 11:00 AM | | | | | PDT | | + + + + + | Height | 180.3 cm (5' 11") | 02/08/2019 11:00 AM | | | | | PDT | | + + + + + | Body Mass Index | 35.43 | 02/08/2019 11:00 AM | | | | | PDT | | + + + + + Plan of Treatment +--------+ + + + + | Date | Type | Specialty | Care Team | Description | +--------+ + + + + | 09/22/ | Office | Hepatology | Eva Hogan, | | | 2019 | Visit | | [address] | | | | | | [address] | | | | | | [place], [place] | | | | | | [address] | | | | | | [phone] | | | | | | | | +--------+ + + + + | 09/22/ | Hospital | | Carroll Sosa MD | | | 2018 | Encounter | | [address] | | | | | | [address] [place], | | | | | | [place] [address] | | | | | | [phone] | | | | | | | | +--------+ + + + + | 09/22/ | Appointment | Procedural Care Unit | | | | 2019 | | | | | +--------+ + + + + | 09/22/ | Appointment | Gastroenterology | Carroll Sosa MD | | | 2019 | | | [address] | | | | | | [address] [place], | | | | | | [place] [address] | | | | | | [phone] | | | | | | | | +--------+ + + + + + + + + + | Health Maintenance | Due Date | Last Done | Comments | + + + + + | Pneumococcal | | | | | vaccination (1 of 1 | 5 | | | | - PPSV23) | | | | + + + + + | Influenza (Flu) | | | | | vaccination (#1) | 9 | | | + + + + + Results Not on filefrom Last 3 Months Insurance + +--------+ +--------+ + +--------+ | Payer | Benefi | Subscriber | Effect | Phone | Address | Type | | | t Plan | ID | dwight | | | | | | / | | Dates | | | | | | Group | | | | | | + +--------+ +--------+ + +--------+ | MEDICARE | MEDICA | xxxxxxxxxxx | 12/11/19 | [phone] | [address] | [address] | | | RE A & | | 14-Pre | [address] | | | [address] | | sent | | [place], [place] | | | | | | | | [address] | | + +--------+ +--------+ + +--------+ | | CHAMPV | xxxxxxxxx | Effect | [phone] | | Indemn | | | A | | dwight | 7 | | ity | | | | | for | | | | | | | | all | | | | | | | | dates | | | | + +--------+ +--------+ + +--------+ + +--------+ +--------+ + + | Guarantor Name | Accoun | Relation to | Date | Phone | Billing Address | | | t Type | Patient | of | | | | | | | | | | + +--------+ +--------+ + + | Henrietta Cordero | Person | Self | [birth year] | [address] | | [place] | francisco/Art | | 1980 | [phone] | [place] [address] | | | [place] | | | 0 (Home) | | + +--------+ +--------+ + +
--- OUTSIDE RECORDS SUMMARY | ~2019-09-09 | XMS | Encounter Summary ---
Demographics + + + | Address | [address] | | | [place] [address] | + + + | Home Phone | | + + + | Preferred Language | Unknown | + + + | Marital Status | | + + + | Sikhism Affiliation | NON | + + + | Race | White | + + + | Ethnic Group | Not or | + + + Author + + + | Author | [facility] | + + + | Organization | [facility] | + + + | Address | Unknown | + + + | Phone | Unavailable | + + + Support + + +---------+ + | Name | Relationship | Address | Phone | + + +---------+ + | Abhi Justice | ECON | Unknown | | + + +---------+ + Care Team Providers + +------+ + | Care Medieval English Literature Professor Name | Role | Phone | + +------+ + | Christofer Holguin NP | PCP | | + +------+ + Reason for Visit + + + | Reason | Comments | + + + | Returning Phone Call | | + + + Encounter Details +--------+ + + + + | Date | Type | Department | Care Team | Description | +--------+ + + + + | 10/30/ | Telephone | Digestive Health | Eva Hogan, | Returning Phone Call | | 2017 | | [place] [address] | PA-C [address] | | | | | [address] | [facility] | | | | | Mailcode: OC8D | [place], [place] | | | | | [facility] | [address] | | | | | and Healing, | [phone] | | | | | [address] | | | | | | [place], [place] | | | | | | [address] | | | | | | [phone] | | | +--------+ + + + [...] | 2019 | Visit | | [address] | | | | | | [address] | | | | | | [place], [place] | | | | | | [address] | | | | | | [phone] | | | | | | | | +--------+ + + + + | 09/22/ | Hospital | | Carroll Sosa MD | | | 2019 | Encounter | | [address] | | | | | | [address] [place], | | | | | | [place] [address] | | | | | | [phone] | | | | | | | | +--------+ + + + + | 09/22/ | Appointment | Procedural Care Unit | | | | 2018 | | | | | +--------+ + + + + | 09/22/ | Appointment | Gastroenterology | Carroll Sosa MD | | | 2019 | | | [address] | | | | | | [address] [place], | | | | | | [place] [address] | | | | | | [phone] | | | | | | | | +--------+ + + + + + +------+--------+ + + | Name | Type | Priori | Associated Diagnoses | Order Schedule | | | | ty | | | + +------+--------+ + + | CBC ONLY | Lab | Routin | Hepatic cirrhosis, | Expected: 11/09/2018 | | | | e | unspecified hepatic | (Approximate), | | | | | cirrhosis type, | Expires: 12/10/2019 | | | | | unspecified whether | | | | | | ascites present | | | | | | (HCC) | | + +------+--------+ + + | COMPLETE METABOLIC | Lab | Routin | Hepatic cirrhosis, | Expected: 11/09/2018 | | SET | | e | unspecified hepatic | (Approximate), | | (NA,K,CL,CO2,BUN,CRE | | | cirrhosis type, | Expires: 12/10/2019 | | AT,GLUC,CA,AST,ALT,B | | | unspecified whether | | | CASSIA TOTAL,ALK | | | ascites present | | | PHOS,ALB,PROT TOTAL) | | | (HCC) | | + +------+--------+ + + | INR | Lab | Routin | Hepatic cirrhosis, | Expected: 11/09/2018 | | | | e | unspecified hepatic | (Approximate), | | | | | cirrhosis type, | Expires: 12/10/2019 | | | | | unspecified whether | | | | | | ascites present | | | | | | (HCC) | | + +------+--------+ + + | ALPHA-FETOPROTEIN | Lab | Routin | Hepatic cirrhosis, | Expected: 11/09/2018 | | TUMOR MARKER, SERUM | | e | unspecified hepatic | (Approximate), | | | | | cirrhosis type, | Expires: 12/10/2019 | | | | | unspecified whether | | | | | | ascites present | | | | | | (HCC) | | + +------+--------+ + + documented as of this encounter Visit Diagnoses + + | Diagnosis | + + | Hepatic cirrhosis, unspecified hepatic cirrhosis type, unspecified whether ascites | | present (HCC) - Primary | + + documented in this encounter"
--- OUTSIDE RECORDS SUMMARY | ~2019-09-09 | XMS | Encounter Summary ---
Demographics + + + | Address | [address] | | | [place] [address] | + + + | Home Phone | | + + + | Preferred Language | Unknown | + + + | Marital Status | | + + + | Rastafarian Affiliation | NON | + + + | Race | White | + + + | Ethnic Group | Not or | + + + Author + + + | Author | [facility] | + + + | Organization | [facility] | + + + | Address | Unknown | + + + | Phone | Unavailable | + + + Support + + +---------+ + | Name | Relationship | Address | Phone | + + +---------+ + | Abhi Justice | ECON | Unknown | | + + +---------+ + Care Team Providers + +------+ + | Care Mainframe Analyst Name | Role | Phone | + +------+ + | Christofer Holguin NP | PCP | | + +------+ + Reason for Referral Diagnostic Testing (Routine) +--------+--------+ + + + + | Status | Reason | Specialty | Diagnoses / | Referred By | Referred To | | | | | Procedures | Contact | Contact | +--------+--------+ + + + + | Closed | | Radiology | Diagnoses | Hogan, | | | | | | Hepatic | Eva Webb, | | | | | | cirrhosis, | PA-C [address] | | | | | | unspecified | [address] | | | | | | hepatic | [address] | | | | | | cirrhosis | Rd | | | | | | type, | [place], [place] | | | | | | unspecified | [address] | | | | | | whether | Phone: | | | | | | ascites | [phone] | | | | | | present | Fax: | | | | | | (HCC) | [phone] | | | | | | Procedures | | | | | | | MRI ABDOMEN | | | | | | | WWO CONTRAST | | | +--------+--------+ + + + + Reason for Visit Diagnostic Testing (Routine) +--------+--------+ + + + + | Status | Reason | Specialty | Diagnoses / | Referred By | Referred To | | | | | Procedures | Contact | Contact | +--------+--------+ + + + + | Closed | | Radiology | Diagnoses | Hogan, | | | | | | Hepatic | Eva Webb, | | | | | | cirrhosis, | PA-C [address] | | | | | | unspecified | [address] | | | | | | hepatic | [address] | | | | | | cirrhosis | Rd | | | | | | type, | [place], [place] | | | | | | unspecified | [address] | | | | | | whether | Phone: | | | | | | ascites | [phone] | | | | | | present | Fax: | | | | | | (HCC) | [phone] | | | | | | Procedures | | | | | | | MRI ABDOMEN | | | | | | | WWO CONTRAST | | | +--------+--------+ + + + + Encounter Details +--------+ + + + + | Date | Type | Department | Care Team | Description | +--------+ + + + + | 02/08/ | Hospital | Radiology/Imaging | Eva Hogan, | | | 2019 | Encounter | Lab at [facility] [address] | [address] [facility] | | | | | [address] Mailcode: | [address] | | | | | [facility] [place] for | [place], [place] | | | | | Health and [facility], | [address] | | | | | [address] | [phone] | | | | | [place], [place] | | | | | | [address] | | | | | | [phone] | | | +--------+ + + + [...] + + documented as of this encounter Medications at Time of Discharge + + + +---------+--------+ + | Medication | Sig | Dispensed | Refills | Start | End Date | | | | | | Date | | + + + +---------+--------+ + | exenatide | Inject 2 mg under | | 0 | | | | (BYDUREON) 2 mg/0.65 | the skin (SUBC) once | | | | | | mL subcutaneous pen | weekly. | | | | | | injector | | | | | | + + + +---------+--------+ + | GABAPENTIN ORAL | Take by mouth. | | 0 | | | + + + +---------+--------+ + | losartan potassium | Take by mouth. | | 0 | | | | (LOSARTAN ORAL) | | | | | | + + + +---------+--------+ + | pravastatin 20 mg | Take 20 mg by mouth | | 0 | | | | oral tablet | once daily. | | | | | + + + +---------+--------+ + documented as of this encounter Plan of Treatment +--------+ + + + + | Date | Type | Specialty | Care Team | Description | +--------+ + + + + | 09/22/ | Office | Hepatology | Eva Hogan, | | | 2018 | Visit | | [address] | | | | | | [address] | | | | | | [place], [place] | | | | | | [address] | | | | | | [phone] | | | | | | | | +--------+ + + + + | 09/22/ | Hospital | | Carroll Sosa MD | | | 2019 | Encounter | | [address] | | | | | | [facility] | | | | | | [place] [address] | | | | | | [phone] | | | | | | | | +--------+ + + + + | 09/22/ | Appointment | Procedural Care Unit | | | | 2018 | | | | | +--------+ + + + + | 09/22/ | Appointment | Gastroenterology | Carroll Sosa MD | | | 2018 | | | [address] | | | | | | [address], | | | | | | [place] [address] | | | | | | [phone] | | | | | | | | +--------+ + + + + documented as of this encounter Procedures + +--------+ + + + | Procedure Name | Priori | Date/Time | Associated Diagnosis | Comments | | | ty | | | | + +--------+ + + + | MRI ABDOMEN WWO | Routin | 02/08/2019 | Hepatic cirrhosis, | Results for this | | CONTRAST | e | 9:28 AM | unspecified hepatic | procedure are in the | | | | PDT | cirrhosis type, | results section. | | | | | unspecified whether | | | | | | ascites present | | | | | | (HCC) | | + +--------+ + + + documented in this encounter Results MRI ABDOMEN WWO CONTRAST (02/08/2019 9:28 AM PDT) + + | Specimen | + + | | + + + + + | Narrative | Performed At | + + + | EXAM: Abdomen MRI without and with intravenous contrast. | [facility] | | HISTORY: Biopsy-proven cirrhosis, HCC screening. COMPARISON: | RADIOLOGY VOICE | | Outside MRI 06/18/2018 TECHNIQUE: Multiplanar MRI of the abdomen | RECOGNITION 2 | | was performed without and with gadolinium based intravenous contrast. | | | FINDINGS: LIVER: There is diffuse hepatic steatosis and | | | hepatic surface nodularity as well as compensatory hypertrophy of the | | | caudate and left hepatic lobe. No suspicious hepatic lesion. | | | BILIARY: Gallbladder is surgically absent. No biliary dilatation. | | | PANCREAS: Unremarkable. SPLEEN: The spleen is enlarged, measuring | | | up to 19.2 cm in length. ADRENALS: Unremarkable. KIDNEYS: There is a | | | 19 mm simple cyst within the left kidney. The right kidney is | | | unremarkable. GI TRACT: Visualized portions are unremarkable. | | | PERITONEUM: No free air or fluid. LYMPH NODES: No lymphadenopathy. | | | VESSELS: Compared with 06/18/2018, previous expansion and apparent | | | thrombus within the SMV, main portal vein, and left portal vein is | | | significantly improved. Few linear hypointense foci in the region of | | | the portal confluence and within the left portal vein (e.g. DICOM | | | 604/267) likely represent minimal residual thrombus; evaluation of the | | | SMV and confluence are limited due to respiratory motion. Splenorenal | | | shunt is noted within the left upper quadrant. BONES AND SOFT | | | TISSUES: Unremarkable. IMPRESSION: 1. Since 06/18/2018, improved | | | SMV and portal venous thrombus with a small focus of thrombus noted | | | within the left portal vein and question minimal thrombus at the | | | portal confluence. CT could be obtained for better characterization | | | due to respiratory motion, as clinically warranted. Discussed with | | | Samira DURAN at time of dictation. 2. Cirrhosis and findings of portal | | | hypertension without suspicious hepatic lesion. I have personally | | | reviewed the images and, if necessary, edited the report. I agree | | | with the report as now presented. Final signature: Sohail Rm | | | 02/08/2019 6:49 PM Preliminary: Abhilash Pino MD 02/08/2019 | | | 11:52 AM Dictation initiated: Abhilashdana Pino MD 02/08/2019 9:31 AM | | + + + + + | Procedure Note | + + | Service Account, Radiant Res In Interface - 02/08/2019 6:50 PM PDT EXAM: Abdomen MRI | | without and with intravenous contrast. HISTORY: Biopsy-proven cirrhosis, HCC | | screening. COMPARISON: Outside MRI 06/18/2018 TECHNIQUE: Multiplanar MRI of the abdomen | | was performed without and with gadolinium based intravenous contrast. FINDINGS: | | LIVER: There is diffuse hepatic steatosis and hepatic surface nodularity as well as | | compensatory hypertrophy of the caudate and left hepatic lobe. No suspicious hepatic | | lesion. BILIARY: Gallbladder is surgically absent. No biliary dilatation.PANCREAS: | | Unremarkable. SPLEEN: The spleen is enlarged, measuring up to 19.2 cm in | | length.ADRENALS: Unremarkable.KIDNEYS: There is a 19 mm simple cyst within the left | | kidney. The right kidney is unremarkable.GI TRACT: Visualized portions are | | unremarkable.PERITONEUM: No free air or fluid. LYMPH NODES: No lymphadenopathy.VESSELS: | | Compared with 06/18/2018, previous expansion and apparent thrombus within the SMV, main | | portal vein, and left portal vein is significantly improved. Few linear hypointense foci | | in the region of the portal confluence and within the left portal vein (e.g. DICOM | | 604/267) likely represent minimal residual thrombus; evaluation of the SMV and | | confluence are limited due to respiratory motion. Splenorenal shunt is noted within the | | left upper quadrant. BONES AND SOFT TISSUES: Unremarkable. IMPRESSION: 1. Since | | 06/18/2018, improved SMV and portal venous thrombus with a small focus of thrombus noted | | within the left portal vein and question minimal thrombus at the portal confluence. CT | | could be obtained for better characterization due to respiratory motion, as clinically | | warranted. Discussed with Samira DURAN at time of dictation. 2. Cirrhosis and findings of | | portal hypertension without suspicious hepatic lesion. I have personally reviewed the | | images and, if necessary, edited the report. I agree with the report as now presented. | | Final signature: Sohail Rm MD 02/08/2019 6:49 PM Preliminary: Abhilash Pino MD | | 02/08/2019 11:52 AM Dictation initiated: Abhilash Pino MD 02/08/2019 9:31 AM | |BONES AND SOFT TISSUES: Unremarkable. | | | |IMPRESSION: | | | |1. Since 06/18/2018, improved SMV and portal venous thrombus with a small focus of thrombus n oted within the left portal vein and question minimal thrombus at the portal confluence. CT could be obtained for better | |characterization due to respiratory motion, as clinically warranted. Discussed with Samira Cronin at time of dictation. | | | |2. Cirrhosis and findings of portal hypertension without suspicious hepatic lesion. | | | |I have personally reviewed the images and, if necessary, edited the report. I agree with e report as now presented. | | | |Final signature: Sohail Rm MD 02/08/2019 6:49 PM | |Preliminary: Abhilash Pino MD 02/08/2019 11:52 AM | |Dictation initiated: Abhilash Pino MD 02/08/2019 9:31 AM | + + + +---------+ + + | Performing | Address | City/State/Zipcode | Phone Number | | Organization | | | | + +---------+ + + | [facility] | | | | | VOICE RECOGNITION 2 | | | | + +---------+ + + documented in this encounter Visit Diagnoses + + | Diagnosis | + + | Hepatic cirrhosis, unspecified hepatic cirrhosis type, unspecified whether ascites | | present (HCC) | + + documented in this encounter Administered Medications + +---------+ +-------+------+------+ | Medication Order | MAR | Action | Dose | Rate | Site | | | Action | Date | | | | + +---------+ +-------+------+------+ | gadoterate meglumine (DOTAREM) | IV Push | 02/09/20 | 24 mL | | | | 0.5 mmol/mL (376.9 mg/mL) | | 19 9:07 | | | | | injection 24 mL 24 mL (rounded | | AM PDT | | | | | from 23.58 mL = 0.2 mL/kg | | | | | | | 117.9 kg Order-specific weight), | | | | | | | intravenous, ONCE, 1 dose, Mon | | | | | | | 02/08/19 at 0900 | | | | | | + +---------+ +-------+------+------+ +---+---+ | | | +---+---+ documented in this encounter"
--- OUTSIDE RECORDS SUMMARY | ~2019-09-09 | XMS | Encounter Summary ---
Demographics + + + | Address | [address] | | | [place] [address] | + + + | Home Phone | | + + + | Preferred Language | Unknown | + + + | Marital Status | | + + + | Scientology Affiliation | NON | + + + | Race | White | + + + | Ethnic Group | Not or | + + + Author + + + | Author | [facility] | + + + | Organization | [facility] | + + + | Address | Unknown | + + + | Phone | Unavailable | + + + Support + + +---------+ + | Name | Relationship | Address | Phone | + + +---------+ + | Abhi Justice | ECON | Unknown | | + + +---------+ + Care Team Providers + +------+ + | Care International Student Advisor Name | Role | Phone | + +------+ + | Christofer Holguin NP | PCP | | + +------+ + Encounter Details +--------+ + + + + | Date | Type | Department | Care Team | Description | +--------+ + + + + | 06/12/ | Inside | [facility] | Eva Hogan, | | | 2018 | Referral | [facility] [address] | PA-C [address] | | | | Order | [address] Mailcode: | [address] | | | | | [facility] for | [facility] [place] | | | | | Health and Healing, | [address] | | | | | [address] | [phone] | | | | | [place], [place] | | | | | | [address] | | | | | | [phone] | | | +--------+ + + + [...] Rd | | | | | | [place], [place] | | | | | | [address] | | | | | | [phone] | | | | | | | | +--------+ + + + + | 09/22/ | Hospital | | Carroll Sosa MD | | | 2018 | Encounter | | [address] | | | | | | [facility] [place], | | | | | | [place] [address] | | | | | | [phone] | | | | | | | | +--------+ + + + + | 09/22/ | Appointment | Procedural Care Unit | | | | 2018 | | | | | +--------+ + + + + | 09/22/ | Appointment | Gastroenterology | Carroll Sosa MD | | | 2018 | | | [address] | | | | | | [address], | | | | | | [place] [address] | | | | | | [phone] | | | | | | | | +--------+ + + + + +------+ +--------+ + + | Name | Type | Priori | Associated Diagnoses | Order Schedule | | | | ty | | | +------+ +--------+ + + | EGD | Procedures | Routin | Hepatic cirrhosis, | Expected: 06/12/2018 | | | | e | unspecified hepatic | | | | | | cirrhosis type, | | | | | | unspecified whether [...]
--- OUTSIDE RECORDS SUMMARY | ~2019-09-09 | XMS | Encounter Summary ---
Demographics + + + | Address | [address] | | | [place] [address] | + + + | Home Phone | | + + + | Preferred Language | Unknown | + + + | Marital Status | | + + + | Yarsani Affiliation | NON | + + + | Race | White | + + + | Ethnic Group | Not or | + + + Author + + + | Author | [facility] | + + + | Organization | [facility] | + + + | Address | Unknown | + + + | Phone | Unavailable | + + + Support + + +---------+ + | Name | Relationship | Address | Phone | + + +---------+ + | Abhi Justice | ECON | Unknown | | + + +---------+ + Care Team Providers + +------+ + | Care Landfill Gas Plant Field Technician Name | Role | Phone | + +------+ + | Christofer Holguin NP | PCP | | + +------+ + Encounter Details +--------+ + + + + | Date | Type | Department | Care Team | Description | +--------+ + + + + | 12/04/ | Telephone | [facility] | Eva Hogan, | | | 2019 | | [place] [address] [address] | [address] | | | | | [address] | [address] | | | | | Mailcode: [id number] | [place], [place] | | | | | [facility] | [address] | | | | | [address], | [phone] | | | | | [address] | | | | | | [place], [place] | | | | | | [address] | | | | | | [phone] | | | +--------+ + + + [...] [address] | | | | | | [place], [place] | | | | | | [address] | | | | | | [phone] | | | | | | | | +--------+ + + + + | 09/22/ | Hospital | | Carroll Sosa MD | | | 2018 | Encounter | | [address] | | | | | | [address], | | | | | | [place] [address] | | | | | | [phone] | | | | | | | | +--------+ + + + + | 09/22/ | Appointment | Procedural Care Unit | | | | 2018 | | | | | +--------+ + + + + | 09/22/ | Appointment | Gastroenterology | Carroll Sosa MD | | | 2019 | | | [address] | | | | | | [address], | | | | | | [place] [address] | | | | | | [phone] | | | | | | | | +--------+ + + + + + +------+--------+ + + | Name | Type | Priori | Associated Diagnoses | Order Schedule | | | | ty | | | + +------+--------+ + + | CBC ONLY | Lab | Routin | Elevated liver | Expected: 12/08/2018 | | | | e | enzymes Hepatic | (Approximate), | | | | | cirrhosis, | Expires: 01/08/2020 | | | | | unspecified hepatic | | | | | | cirrhosis type, | | | | | | unspecified whether | | | | | | ascites present | | | | | | (HCC) | | + +------+--------+ + + | COMPLETE METABOLIC | Lab | Routin | Elevated liver | Expected: 12/08/2018 | | SET | | e | enzymes Hepatic | (Approximate), | | (NA,K,CL,CO2,BUN,CRE | | | cirrhosis, | Expires: 01/08/2020 | | AT,GLUC,CA,AST,ALT,B | | | unspecified hepatic | | | CASSIA TOTAL,ALK | | | cirrhosis type, | | | PHOS,ALB,PROT TOTAL) | | | unspecified whether | | | | | | ascites present | | | | | | (HCC) | | + +------+--------+ + + | BILIRUBIN DIRECT | Lab | Routin | Elevated liver | Expected: 12/08/2018 | | | | e | enzymes Hepatic | (Approximate), | | | | | cirrhosis, | Expires: 01/08/2020 | | | | | unspecified hepatic | | | | | | cirrhosis type, | | | | | | unspecified whether | | | | | | ascites present | | | | | | (HCC) | | + +------+--------+ + + | INR | Lab | Routin | Elevated liver | Expected: 12/08/2018 | | | | e | enzymes Hepatic | (Approximate), | | | | | cirrhosis, | Expires: 01/08/2020 | | | | | unspecified hepatic | | | | | | cirrhosis type, | | | | | | unspecified whether | | | | | | ascites present | | | | | | (HCC) | | + +------+--------+ + + | COMPLETE METABOLIC | Lab | Routin | Elevated liver | Expected: 01/13/2019 | | SET | | e | enzymes Hepatic | (Approximate), | | (NA,K,CL,CO2,BUN,CRE | | | cirrhosis, | Expires: 02/14/2020 | | AT,GLUC,CA,AST,ALT,B | | | unspecified hepatic | | | CASSIA TOTAL,ALK | | | cirrhosis type, | | | PHOS,ALB,PROT TOTAL) | | | unspecified whether | | | | | | ascites present | | | | | | (HCC) | | + +------+--------+ + + | CBC ONLY | Lab | Routin | Elevated liver | Expected: 01/13/2019 | | | | e | enzymes Hepatic | (Approximate), | | | | | cirrhosis, | Expires: 02/13/2020 | | | | | unspecified hepatic | | | | | | cirrhosis type, | | | | | | unspecified whether | | | | | | ascites present | | | | | | (HCC) | | + +------+--------+ + + | INR | Lab | Routin | Elevated liver | Expected: 01/13/2019 | | | | e | enzymes Hepatic | (Approximate), | | | | | cirrhosis, | Expires: 02/13/2020 | | | | | unspecified hepatic | | | | | | cirrhosis type, | | | | | | unspecified whether | | | | | | ascites present | | | | | | (HCC) | | + +------+--------+ + + | ALPHA-FETOPROTEIN | Lab | Routin | Elevated liver | Expected: 01/13/2019 | | TUMOR MARKER, SERUM | | e | enzymes Hepatic | (Approximate), | | | | | cirrhosis, | Expires: 02/13/2020 | | | | | unspecified hepatic | | | | | | cirrhosis type, | | | | | | unspecified whether | | | | | | ascites present | | | | | | (HCC) | | + +------+--------+ + + | BILIRUBIN DIRECT | Lab | Routin | Elevated liver | Expected: 01/13/2019 | | | | e | enzymes Hepatic | (Approximate), | | | | | cirrhosis, | Expires: 02/14/2020 | | | | | unspecified hepatic | | | | [...] | + +--------+ + + + | COMPLETE METABOLIC | Routin | 01/12/2019 | | Results for this | | SET | e | | | procedure are in the | | (NA,K,CL,CO2,BUN,CRE | | | | results section. | | AT,GLUC,CA,AST,ALT,B | | | | | | CASSIA TOTAL,ALK | | | | | | PHOS,ALB,PROT TOTAL) | | | | | + +--------+ + + + | CBC ONLY | Routin | 01/12/2019 | | Results for this | | | e | | | procedure are in the | | | | | | results section. | + +--------+ + + + | HEMOGLOBIN A1C, | Routin | 01/12/2019 | | Results for this | | BLOOD | e | | | procedure are in the | | | | | | results section. | + +--------+ + + + | COMPLETE METABOLIC | Routin | 08/10/2018 | | Results for this | | SET | e | | | procedure are in the | | (NA,K,CL,CO2,BUN,CRE | | | | results section. | | AT,GLUC,CA,AST,ALT,B | | | | | | CASSIA TOTAL,ALK | | | | | | PHOS,ALB,PROT TOTAL) | | | | | + +--------+ + + + | CBC ONLY | Routin | 08/10/2018 | | Results for this | | | e | | | procedure are in the | | | | | | results section. | + +--------+ + + + | TSH | Routin | 08/10/2018 | | Results for this | | | e | | | procedure are in the | | | | | | results section. | + +--------+ + + + | LIPID SET (TRIG, T | Routin | 08/10/2018 | | Results for this | | CHOL, HDL, CALC LDL) | e | | | procedure are in the | | | | | | results section. | + +--------+ + + + | HEMOGLOBIN A1C, | Routin | 08/10/2018 | | Results for this | | BLOOD | e | | | procedure are in the | | | | | | results section. | + +--------+ + + + documented in this encounter Results HEMOGLOBIN A1C, BLOOD (01/12/2019) + + + + + + | Component | Value | Ref Range | Performed | Pathologist | | | | | At | Signature | + + + + + + | HEMOGLOBIN | 11.3 (H) | % | [facility] | | | A1C | | | LAB - | | | | | | [place] | | + + + + + + + + | Specimen | + + | Blood - Blood | | (substance) | + + + + + + + | Performing | Address | City/State/Zipcode | Phone Number | | Organization | | | | + + + + + | [facility] - | [address] | [place], [place] | [phone] | | [place] | | | | + + + + + COMPLETE METABOLIC SET (NA,K,CL,CO2,BUN,CREAT,GLUC,CA,AST,ALT,BILI TOTAL,ALK PHOS,ALB,PROT TOTAL) (01/12/2019) + +---------+ + + + | Component | Value | Ref Range | Performed | Pathologist | | | | | At | Signature | + +---------+ + + + | GLUCOSE, | 217 (H) | mg/dL | [facility] | | | PLASMA | | | LAB - | | | (LAB) | | | [place] | | + +---------+ + + + | BUN, PLASMA | 13 | mg/dL | [facility] | | | (LAB) | | | LAB - | | | | | | [place] | | + +---------+ + + + | CREATININE | 0.60 | mg/dL | [facility] | | | PLASMA | | | LAB - | | | (LAB) | | | [place] | | + +---------+ + + + | ALBUMIN, | 4.0 | g/dL | [facility] | | | PLASMA | | | LAB - | | | (LAB) | | | [place] | | + +---------+ + + + | BILIRUBIN | 2.5 (H) | Transcutaneous | [facility] | | | TOTAL | | Bilirubinometer | LAB - | | | | | | [place] | | + +---------+ + + + | ALK PHOS | 108 | U/L | [facility] | | | | | | LAB - | | | | | | [place] | | + +---------+ + + + | AST(SGOT) | 86 (H) | U/L | [facility] | | | | | | LAB - | | | | | | [place] | | + +---------+ + + + | SODIUM, | 138 | mmol/L | [facility] | | | PLASMA | | | LAB - | | | (LAB) | | | [place] | | + +---------+ + + + | POTASSIUM, | 3.6 | mmol/L | [facility] | | | PLASMA | | | LAB - | | | (LAB) | | | [place] | | + +---------+ + + + | ALT (SGPT) | 29 | U/L | [facility] | | | | | | LAB - | | | | | | [place] | | + +---------+ + + + + + | Specimen | + + | Blood - Blood | | (substance) | + + + + + + + | Performing | Address | City/State/Zipcode | Phone Number | | Organization | | | | + + + + + | [facility] - | [address] | [place], [place] | [phone] | | [place] | | | | + + + + + CBC ONLY (01/12/2019) + +---------+ + + + | Component | Value | Ref Range | Performed | Pathologist | | | | | At | Signature | + +---------+ + + + | WHITE CELL | 4.7 | K/cu mm | [facility] | | | COUNT | | | LAB - | | | | | | [place] | | + +---------+ + + + | RED CELL | 4.48 | M/cu mm | [facility] | | | COUNT | | | LAB - | | | | | | [place] | | + +---------+ + + + | HEMOGLOBIN | 13.9 | g/dL | [facility] | | | | | | LAB - | | | | | | [place] | | + +---------+ + + + | HEMATOCRIT | 40.4 | % | [facility] | | | | | | LAB - | | | | | | [place] | | + +---------+ + + + | PLATELET | 113 (L) | K/cu mm | [facility] | | | COUNT | | | LAB - | | | | | | [place] | | + +---------+ + + + + + | Specimen | + + | Blood - Blood | | (substance) | + + + + + + + | Performing | Address | City/State/Zipcode | Phone Number | | Organization | | | | + + + + + | [facility] - | [address] | [place], [place] | [phone] | | [place] | | | | + + + + + TSH (08/10/2018) + +-------+ + + + | Component | Value | Ref Range | Performed | Pathologist | | | | | At | Signature | + +-------+ + + + | TSH | 4.20 | uIU/ml | NON [facility] | | | | | | LAB | | + +-------+ + + + + + | Specimen | + + | Blood - Blood | | (substance) | + + + +---------+ + + | Performing | Address | City/State/Zipcode | Phone Number | | Organization | | | | + +---------+ + + | NON [facility] | | | | + +---------+ + + LIPID SET (TRIG, T CHOL, HDL, CALC LDL) (08/10/2018) + +---------+ + + + | Component | Value | Ref Range | Performed | Pathologist | | | | | At | Signature | + +---------+ + + + | CHOLESTEROL | 202 (H) | mg/dL | NON [facility] | | | (LAB) | | | LAB | | + +---------+ + + + | TRIGLYCERID | 345 (H) | | NON [facility] | | | ES | | | LAB | | + +---------+ + + + | HDL | 36 (L) | mg/dL | NON [facility] | | | CHOLESTEROL | | | LAB | | + +---------+ + + + | LDL | 97 | | NON [facility] | | | CHOLESTEROL | | | LAB | | + +---------+ + + + | VLDL | 69 (H) | mg/dL | NON [facility] | | | CHOLESTEROL | | | LAB | | + +---------+ + + + | CHOL/HDL | 5.6 (H) | | NON [facility] | | | RATIO | | | LAB | | + +---------+ + + + + + | Specimen | + + | Blood - Blood | | (substance) | + + + +---------+ + + | Performing | Address | City/State/Zipcode | Phone Number | | Organization | | | | + +---------+ + + | NON [facility] | | | | + +---------+ + + HEMOGLOBIN A1C, BLOOD (08/10/2018) + + + + + + | Component | Value | Ref Range | Performed | Pathologist | | | | | At | Signature | + + + + + + | HEMOGLOBIN | 11.0 (H) | % | NON [facility] | | | A1C | | | LAB | | + + + + + + + + | Specimen | + + | Blood - Blood | | (substance) | + + + +---------+ + + | Performing | Address | City/State/Zipcode | Phone Number | | Organization | | | | + +---------+ + + | NON [facility] | | | | + +---------+ + + COMPLETE METABOLIC SET (NA,K,CL,CO2,BUN,CREAT,GLUC,CA,AST,ALT,BILI TOTAL,ALK PHOS,ALB,PROT TOTAL) (08/10/2018) + +---------+ + + + | Component | Value | Ref Range | Performed | Pathologist | | | | | At | Signature | + +---------+ + + + | GLUCOSE, | 466 (H) | mg/dL | NON [facility] | | | PLASMA | | | LAB | | | (LAB) | | | | | + +---------+ + + + | BUN, PLASMA | 11 | mg/dL | NON [facility] | | | (LAB) | | | LAB | | + +---------+ + + + | CREATININE | 0.72 | mg/dL | NON [facility] | | | PLASMA | | | LAB | | | (LAB) | | | | | + +---------+ + + + | ALBUMIN, | 4.2 | g/dL | NON [facility] | | | PLASMA | | | LAB | | | (LAB) | | | | | + +---------+ + + + | BILIRUBIN | 2.8 (H) | Transcutaneous | NON [facility] | | | TOTAL | | Bilirubinometer | LAB | | + +---------+ + + + | ALK PHOS | 85 | U/L | NON [facility] | | | | | | LAB | | + +---------+ + + + | AST(SGOT) | 66 (H) | U/L | NON [facility] | | | | | | LAB | | + +---------+ + + + | SODIUM, | 131 (L) | mmol/L | NON [facility] | | | PLASMA | | | LAB | | | (LAB) | | | | | + +---------+ + + + | POTASSIUM, | 3.6 | mmol/L | NON [facility] | | | PLASMA | | | LAB | | | (LAB) | | | | | + +---------+ + + + | ALT (SGPT) | 23 | U/L | NON [facility] | | | | | | LAB | | + +---------+ + + + + + | Specimen | + + | Blood - Blood | | (substance) | + + + +---------+ + + | Performing | Address | City/State/Zipcode | Phone Number | | Organization | | | | + +---------+ + + | NON [facility] | | | | + +---------+ + + CBC ONLY (08/10/2018) + +-------+ + + + | Component | Value | Ref Range | Performed | Pathologist | | | | | At | Signature | + +-------+ + + + | WHITE CELL | 6.5 | K/cu mm | NON [facility] | | | COUNT | | | LAB | | + +-------+ + + + | RED CELL | 4.77 | M/cu mm | NON [facility] | | | COUNT | | | LAB | | + +-------+ + + + | HEMOGLOBIN | 14.0 | g/dL | NON [facility] | | | | | | LAB | | + +-------+ + + + | HEMATOCRIT | 4.8 | % | NON [facility] | | | | | | LAB | | + +-------+ + + + | PLATELET | 165 | K/cu mm | NON [facility] | | | COUNT | | | LAB | | + +-------+ + + + + + | Specimen | + + | Blood - Blood | | (substance) | + + + +---------+ + + | Performing | Address | City/State/Zipcode | Phone Number | | Organization | | | | + +---------+ + + | NON [facility] | | | | + +---------+ + + documented in this encounter Visit Diagnoses + + | Diagnosis | + + | Elevated liver enzymes - Primary Nonspecific elevation of levels of transaminase or | | lactic acid dehydrogenase (LDH) | + + | Hepatic cirrhosis, unspecified hepatic cirrhosis type, unspecified whether ascites | | present (HCC) | + + documented in this encounter"
--- OUTSIDE RECORDS SUMMARY | ~2019-09-09 | XMS | Encounter Summary ---
Demographics + + + | Address | [address] | | | [place] [address] | + + + | Home Phone | | + + + | Preferred Language | Unknown | + + + | Marital Status | | + + + | Evangelical Affiliation | NON | + + + | Race | White | + + + | Ethnic Group | Not or | + + + Author + + + | Author | [facility] | + + + | Organization | [facility] | + + + | Address | Unknown | + + + | Phone | Unavailable | + + + Support + + +---------+ + | Name | Relationship | Address | Phone | + + +---------+ + | Abhi Justice | ECON | Unknown | | + + +---------+ + Care Team Providers + +------+ + | Care Turn Down Attendant Name | Role | Phone | + +------+ + | Christofer Holguin NP | PCP | | + +------+ + Encounter Details +--------+ + + + + | Date | Type | Department | Care Team | Description | +--------+ + + + + | 02/08/ | Telephone | Dig[facility]ive [facility] | Eva Hogan, | | | 2019 | | [place] [address] [address] | [address] | | | | | [address] | [address] | | | | | Mailcode: OC8D | [place], [place] | | | | | [facility] | [address] | | | | | [address], | [phone] | | | | | [address] | | | | | | [place], [place] | | | | | | [address] | | | | | | [phone] | | | +--------+ + + + [...] [address] | | | | | | [place], [place] | | | | | | [address] | | | | | | [phone] | | | | | | | | +--------+ + + + + | 09/22/ | Hospital | | Carroll Sosa MD | | | 2018 | Encounter | | [address] | | | | | | [address], | | | | | | [place] [address] | | | | | | [phone] | | | | | | | | +--------+ + + + + | 09/22/ | Appointment | Procedural Care Unit | | | | 2018 | | | | | +--------+ + + + + | 09/22/ | Appointment | Gastroenterology | Carroll Sosa MD | | | 2018 | | | [address] | | | | | | [address], | | | | | | [place] [address] | | | | | | [phone] | | | | | | | | +--------+ + + + + documented as of this encounter Procedures + +--------+ + + + | Procedure Name | Priori | Date/Time | Associated Diagnosis | Comments | | | ty | | | | + +--------+ + + + | PATHOLOGY CONSULT - | Routin | 02/12/2019 | Liver cirrhosis | Results for this | | REVIEW OUTSIDE | e | 9:31 AM | secondary to FISH | procedure are in the | | SLIDES | | PDT | (HCC) | results section. | + +--------+ + + + documented in this encounter Results PATHOLOGY CONSULT - REVIEW OUTSIDE SLIDES (02/12/2019 9:31 AM PDT) + + + + + + | Component | Value | Ref Range | Performed | Pathologist | | | | | At | Signature | + + + + + + | Clinical | The patient is a | | [facility] | | | History | 38-year-old woman with | | DEPARTMENT | | | | acute calculous | | OF | | | | cholecystitis and fatty | | PATHOLOGY | | | | liver disease. Viral | | | | | | serologies negative for | | | | | | Hepatitis A, B, and C. | | | | + + + + + + | Final | Gallbladder, | | [facility] | Electronically | | Pathologic | cholecystectomy; liver, | | DEPARTMENT | signed by Faizan | | Diagnosis | needle biopsy | | OF | T Kellen | | | ([id number], | | PATHOLOGY | MD on 02/16/2019 | | | 03/27/2018):A. | | | at 1:10 PM | | | Gallbladder, | | | | | | cholecystectomy: | | | | | | Chronic cholecystitis | | | | | | with cholelithiasisB. | | | | | | Liver, needle biopsy: | | | | | | Cirrhosis with | | | | | | underlying moderate | | | | | | steatohepatitis (Grade | | | | | | 2, Stage 4) See | | | | | | commentComment: We | | | | | | appreciate the | | | | | | opportunity to review | | | | | | this case and agree with | | | | | | the reported diagnosis. | | | | | | Biopsies of liver show | | | | | | regenerative hepatocyte | | | | | | nodules surrounded by | | | | | | broad fibrous bands and | | | | | | zone 3 pericellular | | | | | | fibrosis. There is mild | | | | | | perivenular | | | | | | macrovesicular steatosis | | | | | | (approximately 25%), | | | | | | prominent areas of | | | | | | hepatocyte ballooning, | | | | | | and rare foci of lobular | | | | | | inflammation. These | | | | | | findings are consistent | | | | | | with advanced-stage | | | | | | steatohepatitis.Case | | | | | | seen by:Tobias Lobo, | | | | | | | | | | | | | | | | | | Pathology ResidentBrian | | | | | | MD Kellen | | | | | | | | | | | | [facility]ologist[facility] | | | | | | [facility], [facility] | | | | | | [facility] electronic | | | | | | signature indicates that | | | | | | I have personally | | | | | | reviewed all diagnostic | | | | | | slides, the gross and/or | | | | | | microscopic portion of | | | | | | this report and | | | | | | formulated the final | | | | | | diagnosis. | | | | + + + + + + | Materials | Specimen AReferring | | [facility] | | | Received | [facility] | | DEPARTMENT | | | | [place], | | | | | | [place] [address] | | PATHOLOGY | | | | Accession Number: | | | | | | [id number] | | | | | | Collection Date: | | | | | | 03/27/2018Sublabeled H&E | | | | | | Special A to B 2 5 | | | | + + + + + + | Ancillary | Analyte specific | | [facility] | | | Information | reagents are used in | | DEPARTMENT | | | | many laboratory tests | | OF | | | | necessary for standard | | PATHOLOGY | | | | medical care. This test | | | | | | was developed and its | | | | | | performance | | | | | | characteristics | | | | | | determined by [facility] | | | | | | laboratories. It has | | | | | | not been cleared or | | | | | | approved by the US Food | | | | | | and Drug Administration | | | | | | (FDA). FDA does not | | | | | | require this test to go | | | | | | through premarket FDA | | | | | | review. This test is | | | | | | used for clinical | | | | | | purposes. It should not | | | | | | be regarded as | | | | | | investigational or for | | | | | | research. This | | | | | | laboratory is certified | | | | | | under the Clinical | | | | | | Laboratory Improvement | | | | | | Amendments (CLIA) as | | | | | | qualified to perform | | | | | | high complexity clinical | | | | | | laboratory testing. 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
--- OUTSIDE RECORDS SUMMARY | ~2019-09-09 | XMS | Encounter Summary ---
Demographics + + + | Address | [address] | | | [place] [address] | + + + | Home Phone | | + + + | Preferred Language | Unknown | + + + | Marital Status | | + + + | Worship Affiliation | NON | + + + | Race | White | + + + | Ethnic Group | Not or | + + + Author + + + | Author | [facility] | + + + | Organization | [facility] | + + + | Address | Unknown | + + + | Phone | Unavailable | + + + Support + + +---------+ + | Name | Relationship | Address | Phone | + + +---------+ + | Abhi Justice | ECON | Unknown | | + + +---------+ + Care Team Providers + +------+ + | Care Computer Equipment Installer Name | Role | Phone | + +------+ + | Christofer Holguin NP | PCP | | + +------+ + Reason for Visit + + + | Reason | Comments | + + + | Outside Records | | | Received | | + + + Encounter Details +--------+ + + + + | Date | Type | Department | Care Team | Description | +--------+ + + + + | 06/19/ | Abstract | Dig[facility]ive [facility] | Eva Hogan, | Outside Records | | 2018 | | [place] [address] [address] | PA-C [address] | Received | | | | [address] | [address] | | | | | Mailcode: OC8D | [place], [place] | | | | | [facility] | [address] | | | | | and [place], | [phone] | | | | | [address] | | | | | | [place], [place] | | | | | | [address] | | | | | | [phone] | | | +--------+ + + + [...] | 2019 | Visit | | [address] | | | | | | [address] | | | | | | [place], [place] | | | | | | [address] | | | | | | [phone] | | | | | | | | +--------+ + + + + | 09/22/ | Hospital | | Carroll Sosa MD | | | 2018 | Encounter | | [address] | | | | | | [address] [place], | | | | | | [place] [address] | | | | | | [phone] | | | | | | | | +--------+ + + + + | 09/22/ | Appointment | Procedural Care Unit | | | | 2018 | | | | | +--------+ + + + + | 09/22/ | Appointment | Gastroenterology | Carroll Sosa MD | | | 2018 | | | [address] | | | | | | [address] [place], | | | | | | [place] [address] | | | | | | [phone] | | | | | | | | +--------+ + + + + documented as of this encounter Visit Diagnoses Not on filedocumented in this encounter"
--- OUTSIDE RECORDS SUMMARY | ~2019-09-09 | XMS | Encounter Summary ---
Demographics + + + | Address | [address] | | | [place] [address] | + + + | Home Phone | | + + + | Preferred Language | Unknown | + + + | Marital Status | | + + + | Shinto Affiliation | NON | + + + | Race | White | + + + | Ethnic Group | Not or | + + + Author + + + | Author | [facility] | + + + | Organization | [facility] | + + + | Address | Unknown | + + + | Phone | Unavailable | + + + Support + + +---------+ + | Name | Relationship | Address | Phone | + + +---------+ + | Abhi Justice | ECON | Unknown | | + + +---------+ + Care Team Providers + +------+ + | Care Ship Officer Name | Role | Phone | + +------+ + | Christofer Holguin NP | PCP | | + +------+ + Encounter Details +--------+ + + + + | Date | Type | Department | Care Team | Description | +--------+ + + + + | 06/12/ | Procedure | Radiology/Imaging | | | | 2017 | Pass | Lab at [facility] [address] | | | | | | [address]za Mailcode: | | | | | | [address] | | | | | | Health and Healing, | | | | | | [address] | | | | | | [place], [place] | | | | | | [address] | | | | | | [phone] | | | +--------+ + + + [...] [address] | | | | | | [place] | | | | | | [address] | | | | | | [phone] | | | | | | | | +--------+ + + + + | 09/22/ | Hospital | | Carroll Sosa MD | | | 2019 | Encounter | | [address] | | | | | | [place], | | | | | | [place] [address] | | | | | | [phone] | | | | | | | [...] | | | | | [place], | | | | | | [place] [address] | | | | | | [phone] | | | | | | | | +--------+ + + + + documented as of this encounter Visit Diagnoses Not on filedocumented in this encounter"
--- OUTSIDE RECORDS SUMMARY | ~2019-09-09 | XMS | Encounter Summary ---
Demographics + + + | Address | [address] | | | [place] [address] | + + + | Home Phone | | + + + | Preferred Language | Unknown | + + + | Marital Status | | + + + | Zoroastrian Affiliation | NON | + + + | Race | White | + + + | Ethnic Group | Not or | + + + Author + + + | Author | [facility] | + + + | Organization | [facility] | + + + | Address | Unknown | + + + | Phone | Unavailable | + + + Support + + +---------+ + | Name | Relationship | Address | Phone | + + +---------+ + | Abhi Justice | ECON | Unknown | | + + +---------+ + Care Team Providers + +------+ + | Care Lump Maker Name | Role | Phone | + +------+ + | Christofer Holguin NP | PCP | | + +------+ + Encounter Details +--------+ + + + + | Date | Type | Department | Care Team | Description | +--------+ + + + + | 06/24/ | Transcribe | [facility] | Transcribe | | | 2019 | Orders | [place] [address] | Encounter, Provider, | | | | | Dany Garza Mailcode: | [address] | | | | | [address] [place] for | [place] [address] | | | | | Health and Healing, | | | | | | [address] | | | | | | [place], [place] | | | | | | [address] | | | | | | [phone] | | | +--------+ + + + [...] Rd | | | | | | [place] | | | | | | [address] | | | | | | [phone] | | | | | | | | +--------+ + + + + | 09/22/ | Hospital | | Carroll Sosa MD | | | 2018 | Encounter | | [address] | | | | | | [facility] [place], | | | | | | [place] [address] | | | | | | [phone] | | | | | | | [...] | | | | | [place], | | | | | | [place] [address] | | | | | | [phone] | | | | | | | [...]
--- OUTSIDE RECORDS SUMMARY | ~2019-09-09 | XMS | Encounter Summary ---
Demographics + + + | Address | [address] | | | [place] [address] | + + + | Home Phone | | + + + | Preferred Language | Unknown | + + + | Marital Status | | + + + | Faith Affiliation | NON | + + + | Race | White | + + + | Ethnic Group | Not or | + + + Author + + + | Author | [facility] | + + + | Organization | [facility] | + + + | Address | Unknown | + + + | Phone | Unavailable | + + + Support + + +---------+ + | Name | Relationship | Address | Phone | + + +---------+ + | Abhi Justice | ECON | Unknown | | + + +---------+ + Care Team Providers + +------+ + | Care Pattern Technician Name | Role | Phone | + +------+ + | Christofer Holguin NP | PCP | | + +------+ + Encounter Details +--------+ + + + + | Date | Type | Department | Care Team | Description | +--------+ + + + + | 08/18/ | Telephone | Dig[facility]ive Health | Eva Hogan, | | | 2018 | | [place] [address] [address] | [address] | | | | | [address] | [address] | | | | | Mailcode: OC8D | [place], [place] | | | | | [facility] | [address] | | | | | [address], | [phone] | | | | | [address] | | | | | | [place], [place] | | | | | | [address] | | | | | | [phone] | | | +--------+ + + + [...] Rd | | | | | | [place], [place] | | | | | | [address] | | | | | | [phone] | | | | | | | | +--------+ + + + + | 09/22/ | Hospital | | Carroll Sosa MD | | | 2018 | Encounter | | [address] | | | | | | [address], | | | | | | [place] [address] | | | | | | [phone] | | | | | | | | +--------+ + + + + | 09/22/ | Appointment | Procedural Care Unit | | | | 2018 | | | | | +--------+ + + + + | 09/22/ | Appointment | Gastroenterology | Carroll Sosa MD | | | 2018 | | | [address] | | | | | | [address], | | | | | | [place] [address] | | | | | | [phone] | | | | | | | | +--------+ + + + + documented as of this encounter Visit Diagnoses Not on filedocumented in this encounter"
--- OUTSIDE RECORDS SUMMARY | ~2019-09-09 | XMS | Encounter Summary ---
Demographics + + + | Address | [address] | | | [place] [address] | + + + | Home Phone | | + + + | Preferred Language | Unknown | + + + | Marital Status | | + + + | Latter-Day Affiliation | NON | + + + | Race | White | + + + | Ethnic Group | Not or | + + + Author + + + | Author | [facility] | + + + | Organization | [facility] | + + + | Address | Unknown | + + + | Phone | Unavailable | + + + Support + + +---------+ + | Name | Relationship | Address | Phone | + + +---------+ + | Abhi Justice | ECON | Unknown | | + + +---------+ + Care Team Providers + +------+ + | Care Call Center Rn Name | Role | Phone | + +------+ + | Christofer Holguin NP | PCP | | + +------+ + Reason for Visit + + + | Reason | Comments | + + + | Radiology Order | | + + + Encounter Details +--------+ + + + + | Date | Type | Department | Care Team | Description | +--------+ + + + + | 06/12/ | Telephone | Dig[facility]ive [facility] | Eva Hogan, | Radiology Order | | 2017 | | Center [place] [address] [address] | PA-C [address] | | | | | [address] | [address] | | | | | Mailcode: OC8D | [place], [place] | | | | | [facility] | [address] | | | | | and [address], | [phone] | | | | | [address] | | | | | | [place], [place] | | | | | | [address] | | | | | | [phone] | | | +--------+ + + + [...] | 2019 | Visit | | [address] [facility] | | | | | | [address] | | | | | | [place], [place] | | | | | | [address] | | | | | | [phone] | | | | | | | | +--------+ + + + + | 09/22/ | Hospital | | Carroll Sosa MD | | | 2018 | Encounter | | [address] | | | | | | [address] [place], | | | | | | [place] [address] | | | | | | [phone] | | | | | | | [...] | | | | | [address] [place], | | | | | | [place] [address] | | | | | | [phone] | | | | | | | | +--------+ + + + + documented as of this encounter Visit Diagnoses + + | Diagnosis | + + | Hepatic cirrhosis, unspecified hepatic cirrhosis type (HCC) - Primary | + + documented in this encounter"
--- OUTSIDE RECORDS SUMMARY | ~2019-09-09 | XMS | Encounter Summary ---
Demographics + + + | Address | [address] | | | [place] [address] | + + + | Home Phone | | + + + | Preferred Language | Unknown | + + + | Marital Status | | + + + | Judaism Affiliation | NON | + + + | Race | White | + + + | Ethnic Group | Not or | + + + Author + + + | Author | [facility] | + + + | Organization | [facility] | + + + | Address | Unknown | + + + | Phone | Unavailable | + + + Support + + +---------+ + | Name | Relationship | Address | Phone | + + +---------+ + | Abhi Justice | ECON | Unknown | | + + +---------+ + Care Team Providers + +------+ + | Care Digital Marketing Strategist Name | Role | Phone | + [...] + + | 07/20/ | Telephone | Dig[facility]ive [facility] | Eva Hogan, | Radiology Order | | 2019 | | Center at [facility] [address] | PA-C [address] | | | | | [address] | [address] | | | | | Mailcode: OC8D | [place], [place] | | | | | [facility] | [address] | | | | | and [address], | [phone] | | | | | [address] | | | | | | [place], [place] | | | | | | [address] | | | | | | [phone] | | | +--------+ + + + [...] | 2019 | Visit | | [address] [facility] | | | | | | [address] | | | | | | [place], [place] | | | | | | [address] | | | | | | [phone] | | | | | | | | +--------+ + + + + | 09/22/ | Hospital | | Carroll Sosa MD | | | 2018 | Encounter | | [address] | | | | | | [address] [place], | | | | | | [place] [address] | | | | | | [phone] | | | | | | | [...] | | | | | [address] [place], | | | | | | [place] [address] | | | | | | [phone] | | | | | | | | +--------+ + + + + documented as of this encounter Visit Diagnoses Not on filedocumented in this encounter"
--- OUTSIDE RECORDS SUMMARY | ~2019-09-09 | XMS | Encounter Summary ---
Demographics + + + | Address | [address] | | | [place] [address] | + + + | Home Phone | | + + + | Preferred Language | Unknown | + + + | Marital Status | | + + + | Samaritan Affiliation | NON | + + + | Race | White | + + + | Ethnic Group | Not or | + + + Author + + + | Author | [facility] | + + + | Organization | [facility] | + + + | Address | Unknown | + + + | Phone | Unavailable | + + + Support + + +---------+ + | Name | Relationship | Address | Phone | + + +---------+ + | Abhi Justice | ECON | Unknown | | + + +---------+ + Care Team Providers + +------+ + | Care Agricultural Education Professor Name | Role | Phone | + +------+ + | Christofer Holguin NP | PCP | | + +------+ + Encounter Details +--------+ + + + + | Date | Type | Department | Care Team | Description | +--------+ + + + + | 02/03/ | MyChart | My[facility] [address] | | Appointment Reminder | | 2019 | Encounter | [address] | | | | | | [place] | | | | | | [address] | | | +--------+ + + + [...] Rd | | | | | | [place], [place] | | | | | | [address] | | | | | | [phone] | | | | | | | | +--------+ + + + + | 09/22/ | Hospital | | Carroll Sosa MD | | | 2018 | Encounter | | [address] | | | | | | [address], | | | | | | [place] [address] | | | | | | [phone] | | | | | | | | +--------+ + + + + | 09/22/ | Appointment | Procedural Care Unit | | | | 2018 | | | | | +--------+ + + + + | 09/22/ | Appointment | Gastroenterology | Carroll Sosa MD | | | 2019 | | | [address] | | | | | | [address], | | | | | | [place] [address] | | | | | | [phone] | | | | | | | | +--------+ + + + + documented as of this encounter Visit Diagnoses Not on filedocumented in this encounter"
--- OUTSIDE RECORDS SUMMARY | ~2019-09-09 | XMS | Encounter Summary ---
Demographics + + + | Address | [address] | | | [place] [address] | + + + | Home Phone | | + + + | Preferred Language | Unknown | + + + | Marital Status | | + + + | Tenriism Affiliation | NON | + + + | Race | White | + + + | Ethnic Group | Not or | + + + Author + + + | Author | [facility] | + + + | Organization | [facility] | + + + | Address | Unknown | + + + | Phone | Unavailable | + + + Support + + +---------+ + | Name | Relationship | Address | Phone | + + +---------+ + | Abhi Justice | ECON | Unknown | | + + +---------+ + Care Team Providers + +------+ + | Care Business Reporter Name | Role | Phone | + +------+ + | Christofer Holguin NP | PCP | | + +------+ + Encounter Details +--------+ + + + + | Date | Type | Department | Care Team | Description | +--------+ + + + + | 04/16/ | Abstract | [facility] | Clinic, | | | 2017 | | [place] [address] [address] | Gastroenterology | | | | | [address] | | | | | | Mailcode: OC8D | | | | | | [place] for [facility] | | | | | | and Healing, | | | | | | [address] | | | | | | [place], [place] | | | | | | [address] | | | | | | [phone] | | | +--------+ + + + + Social History + +-------+ +--------+------+ | Tobacco Use | Types | Packs/Day | Years | Date | | | | | Used | | + +-------+ +--------+------+ | Never Assessed | | | | | + +-------+ +--------+------+ + + + | Sex Assigned at [...] | 2018 | Visit | | [address] | | | | | | [address] | | | | | | [place], [place] | | | | | | [address] | | | | | | [phone] | | | | | | | | +--------+ + + + + | 09/22/ | Hospital | | Carroll Sosa MD | | | 2018 | Encounter | | [address] | | | | | | [address] [place], | | | | | | [place] [address] | | | | | | [phone] | | | | | | | [...] | | | | | [address] [place], | | | | | | [place] [address] | | | | | | [phone] | | | | | | | | +--------+ + + + + documented as of this encounter Visit Diagnoses Not on filedocumented in this encounter"
--- OUTSIDE RECORDS SUMMARY | ~2019-09-09 | XMS | Encounter Summary ---
Demographics + + + | Address | [address] | | | [place] [address] | + + + | Home Phone | | + + + | Preferred Language | Unknown | + + + | Marital Status | | + + + | Evangelical Affiliation | NON | + + + | Race | White | + + + | Ethnic Group | Not or | + + + Author + + + | Author | [facility] | + + + | Organization | [facility] | + + + | Address | Unknown | + + + | Phone | Unavailable | + + + Support + + +---------+ + | Name | Relationship | Address | Phone | + + +---------+ + | Abhi Justice | ECON | Unknown | | + + +---------+ + Care Team Providers + +------+ + | Care Product Safety Technical Assistant Name | Role | Phone | + +------+ + | Christofer Holguin NP | PCP | | + +------+ + Encounter Details +--------+ + + + + | Date | Type | Department | Care Team | Description | +--------+ + + + + | 04/16/ | Abstract | [facility] | Clinic, | | | 2017 | | [place] [address] [address] | Gastroenterology | | | | | [address] | | | | | | Mailcode: OC8D | | | | | | [place] for [facility] | | | | | | and Healing, | | | | | | [address] | | | | | | [place], [place] | | | | | | [address] | | | | | | [phone] | | | +--------+ + + + [...] | 2018 | Visit | | [address] | | | | | | [address] | | | | | | [place], [place] | | | | | | [address] | | | | | | [phone] | | | | | | | | +--------+ + + + + | 09/22/ | Hospital | | Carroll Sosa MD | | | 2018 | Encounter | | [address] | | | | | | [address] [place], | | | | | | [place] [address] | | | | | | [phone] | | | | | | | [...] | | | | | [address] [place], | | | | | | [place] [address] | | | | | | [phone] | | | | | | | | +--------+ + + + + documented as of this encounter Visit Diagnoses Not on filedocumented in this encounter"
--- OUTSIDE RECORDS SUMMARY | ~2019-09-09 | XMS | Encounter Summary ---
Demographics + + + | Address | [address] | | | [place] [address] | + + + | Home Phone | | + + + | Preferred Language | Unknown | + + + | Marital Status | | + + + | Yarsani Affiliation | NON | + + + | Race | White | + + + | Ethnic Group | Not or | + + + Author + + + | Author | [facility] | + + + | Organization | [facility] | + + + | Address | Unknown | + + + | Phone | Unavailable | + + + Support + + +---------+ + | Name | Relationship | Address | Phone | + + +---------+ + | Abhi Justice | ECON | Unknown | | + + +---------+ + Care Team Providers + +------+ + | Care Wood Miller Name | Role | Phone | + +------+ + | Christofer Holguin NP | PCP | | + +------+ + Encounter Details +--------+ + + + + | Date | Type | Department | Care Team | Description | +--------+ + + + + | 02/08/ | Telephone | Dig[facility]ive Health | Eva Hogan, | | | 2019 | | [place] [address] [address] | [address] | | | | | [address] | [address] | | | | | Mailcode: OC8D | [place], [place] | | | | | [facility] | [address] | | | | | [address], | [phone] | | | | | [address] | | | | | | [place], [place] | | | | | | [address] | | | | | | [phone] | | | +--------+ + + + [...] Rd | | | | | | [place], [place] | | | | | | [address] | | | | | | [phone] | | | | | | | | +--------+ + + + + | 09/22/ | Hospital | | Carroll Sosa MD | | | 2018 | Encounter | | [address] | | | | | | [address], | | | | | | [place] [address] | | | | | | [phone] | | | | | | | | +--------+ + + + + | 09/22/ | Appointment | Procedural Care Unit | | | | 2018 | | | | | +--------+ + + + + | 09/22/ | Appointment | Gastroenterology | Carroll Sosa MD | | | 2018 | | | [address] | | | | | | [address], | | | | | | [place] [address] | | | | | | [phone] | | | | | | | [...] | | Received | 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
--- OUTSIDE RECORDS SUMMARY | ~2019-09-09 | XMS | Encounter Summary ---
Demographics + + + | Address | [address] | | | [place] [address] | + + + | Home Phone | | + + + | Preferred Language | Unknown | + + + | Marital Status | | + + + | Amish Affiliation | NON | + + + | Race | White | + + + | Ethnic Group | Not or | + + + Author + + + | Author | [facility] | + + + | Organization | [facility] | + + + | Address | Unknown | + + + | Phone | Unavailable | + + + Support + + +---------+ + | Name | Relationship | Address | Phone | + + +---------+ + | Abhi Justice | ECON | Unknown | | + + +---------+ + Care Team Providers + +------+ + | Care Blacksmith Apprentice Name | Role | Phone | + [...] Phone Call | | 2017 | | [place] [address] [address] | PA-C [address] | | | | | [address] | [facility] | | | | | Mailcode: OC8D | [place], [place] | | | | | [facility] | [address] | | | | | and Healing, | [phone] | | | | | [address] | | | | | | [place], [place] | | | | | | [address] | | | | | | [phone] | | | +--------+ + + + [...] | 2019 | Visit | | [address] | | | | | | [address] | | | | | | [place], [place] | | | | | | [address] | | | | | | [phone] | | | | | | | | +--------+ + + + + | 09/22/ | Hospital | | Carroll Sosa MD | | | 2019 | Encounter | | [address] | | | | | | [address] [place], | | | | | | [place] [address] | | | | | | [phone] | | | | | | | [...] | | | | | | [place] [address] | | | | | | [phone] | | | | | | | [...]
--- OUTSIDE RECORDS SUMMARY | ~2019-09-09 | XMS | Encounter Summary ---
Demographics + + + | Address | [address] | | | [place] [address] | + + + | Home Phone | | + + + | Preferred Language | Unknown | + + + | Marital Status | | + + + | Christianity Affiliation | NON | + + + | Race | White | + + + | Ethnic Group | Not or | + + + Author + + + | Author | [facility] | + + + | Organization | [facility] | + + + | Address | Unknown | + + + | Phone | Unavailable | + + + Support + + +---------+ + | Name | Relationship | Address | Phone | + + +---------+ + | Abhi Justice | ECON | Unknown | | + + +---------+ + Care Team Providers + +------+ + | Care Epic Cupid Analyst Name | Role | Phone | + +------+ + | Christofer Holguin NP | PCP | | + +------+ + Reason for Visit +--------+ + | Reason | Comments | +--------+ + | Other | MRI Record | +--------+ + Encounter Details +--------+ + + + + | Date | Type | Department | Care Team | Description | +--------+ + + + + | 04/30/ | Telephone | Dig[facility]ive Health | Eva Hogan, | Other (MRI Record) | | 2019 | | Center at [facility] [address] | PA-C [address] | | | | | [address] | [address] | | | | | Mailcode: OC8D | [place], [place] | | | | | [facility] | [address] | | | | | and [address], | [phone] | | | | | [facility] [address] | | | | | | [place], [place] | | | | | | [address] | | | | | | [phone] | | | +--------+ + + + [...] | 2019 | Visit | | [address] | | | | | | [address] | | | | | | [place], [place] | | | | | | [address] | | | | | | [phone] | | | | | | | | +--------+ + + + + | 09/22/ | Hospital | | Carroll Sosa MD | | | 2018 | Encounter | | [address] | | | | | | [address] [place], | | | | | | [place] [address] | | | | | | [phone] | | | | | | | | +--------+ + + + + | 09/22/ | Appointment | Procedural Care Unit | | | | 2018 | | | | | +--------+ + + + + | 09/22/ | Appointment | Gastroenterology | Carroll Sosa MD | | | 2018 | | | [address] | | | | | | [address] [place], | | | | | | [place] [address] | | | | | | [phone] | | | | | | | | +--------+ + + + + documented as of this encounter Visit Diagnoses Not on filedocumented in this encounter"
--- OUTSIDE RECORDS SUMMARY | ~2019-09-09 | XMS | Encounter Summary ---
Demographics + + + | Address | [address] | | | [place] [address] | + + + | Home Phone | | + + + | Preferred Language | Unknown | + + + | Marital Status | | + + + | Yazdanism Affiliation | NON | + + + | Race | White | + + + | Ethnic Group | Not or | + + + Author + + + | Author | [facility] | + + + | Organization | [facility] | + + + | Address | Unknown | + + + | Phone | Unavailable | + + + Support + + +---------+ + | Name | Relationship | Address | Phone | + + +---------+ + | Abhi Justice | ECON | Unknown | | + + +---------+ + Care Team Providers + +------+ + | Care Nurse Liaison Name | Role | Phone | + +------+ + | Christofer Holguin NP | PCP | | + +------+ + Encounter Details +--------+------+ + + + | Date | Type | Department | Care Team | Description | +--------+------+ + + + | 06/12/ | Lab | Laboratory at [facility] | | Hepatic cirrhosis, | | 2018 | | [address] | | unspecified hepatic | | | | [place], [place] | | cirrhosis type, | | | | [address] | | unspecified whether | | | | [phone] | | ascites present | | | | | | (HCC); Type 2 | | | | | | diabetes mellitus | | | | | | without | | | | | | complication, | | | | | | without long-term | | | | | | current use of | | | | | | insulin (HCC) | +--------+------+ + + + Social History + +-------+ [...] [address] | | | | | | [place] | | | | | | [address] | | | | | | [phone] | | | | | | | | +--------+ + + + + | 09/22/ | Hospital | | Carroll Sosa MD | | | 2019 | Encounter | | [address] | | | | | | [address] [place], | | | | | | [place] [address] | | | | | | [phone] | | | | | | | | +--------+ + + + + | 09/22/ | Appointment | Procedural Care Unit | | | | 2018 | | | | | +--------+ + + + + | 09/22/ | Appointment | Gastroenterology | Carroll Sosa MD | | | 2018 | | | [address] | | | | | | [address] [place], | | | | | | [place] [address] | | | | | | [phone] | | | | | | | | +--------+ + + + + documented as of this encounter Procedures + +--------+ + + + | Procedure Name | Priori | Date/Time | Associated Diagnosis | Comments | | | ty | | | | + +--------+ + + + | TSH W/REFLEX TO FREE | Routin | 06/12/2018 | Type 2 diabetes | Results for this | | T4(IF ABNORMAL) | e | 9:23 AM | mellitus without | procedure are in the | | | | PDT | complication, | results section. | | | | | without long-term | | | | | | current use of | | | | | | insulin (HCC) | | | | | | Hepatic cirrhosis, | | | | | | unspecified hepatic | | | | | | cirrhosis type, | | | | | | unspecified whether | | | | | | ascites present | | | | | | (HCC) | | + +--------+ + + + | DSDNA AB, IGG | Routin | 06/12/2018 | Hepatic cirrhosis, | Results for this | | W/REFLEX TO IFA | e | 9:23 AM | unspecified hepatic | procedure are in the | | TITER | | PDT | cirrhosis type, | results section. | | | | | unspecified whether | | | | | | ascites present | | | | | | (HCC) | | + +--------+ + + + | KELY BY KRYSTIAN | Routin | 06/12/2018 | Hepatic cirrhosis, | Results for this | | W/REFLEX TO IFA | e | 9:23 AM | unspecified hepatic | procedure are in the | | PATTERN & AB ID WHEN | | PDT | cirrhosis type, | results section. | | INDICATED | | | unspecified whether | | | | | | ascites present | | | | | | (HCC) | | + +--------+ + + + | ANTI-NUCLEAR AB, IGG | Routin | 06/12/2018 | Hepatic cirrhosis, | Results for this | | BY IFA | e | 9:23 AM | unspecified hepatic | procedure are in the | | | | PDT | cirrhosis type, | results section. | | | | | unspecified whether | | | | | | ascites present | | | | | | (HCC) | | + +--------+ + + + | CBC AND AUTO DIFF | Routin | 06/12/2018 | Hepatic cirrhosis, | Results for this | | | e | 9:23 AM | unspecified hepatic | procedure are in the | | | | PDT | cirrhosis type, | results section. | | | | | unspecified whether | | | | | | ascites present | | | | | | (HCC) | | + +--------+ + + + | SSB AB | Routin | 06/12/2018 | Hepatic cirrhosis, | Results for this | | | e | 9:23 AM | unspecified hepatic | procedure are in the | | | | PDT | cirrhosis type, | results section. | | | | | unspecified whether | | | | | | ascites present | | | | | | (HCC) | | + +--------+ + + + | SSA AB | Routin | 06/12/2018 | Hepatic cirrhosis, | Results for this | | | e | 9:23 AM | unspecified hepatic | procedure are in the | | | | PDT | cirrhosis type, | results section. | | | | | unspecified whether | | | | | | ascites present | | | | | | (HCC) | | + +--------+ + + + | SM AB | Routin | 06/12/2018 | Hepatic cirrhosis, | Results for this | | | e | 9:23 AM | unspecified hepatic | procedure are in the | | | | PDT | cirrhosis type, | results section. | | | | | unspecified whether | | | | | | ascites present | | | | | | (HCC) | | + +--------+ + + + | OFFICE RUNNER AB | Routin | 06/12/2018 | Hepatic cirrhosis, | Results for this | | | e | 9:23 AM | unspecified hepatic | procedure are in the | | | | PDT | cirrhosis type, | results section. | | | | | unspecified whether | | | | | | ascites present | | | | | | (HCC) | | + +--------+ + + + | LIVER - KIDNEY | Routin | 06/12/2018 | Hepatic cirrhosis, | Results for this | | MICROSOME-1 AB IGG, | e | 9:23 AM | unspecified hepatic | procedure are in the | | SERUM | | PDT | cirrhosis type, | results section. | | | | | unspecified whether | | | | | | ascites present | | | | | | (HCC) | | + +--------+ + + + | INR | Routin | 06/12/2018 | Hepatic cirrhosis, | Results for this | | | e | 9:23 AM | unspecified hepatic | procedure are in the | | | | PDT | cirrhosis type, | results section. | | | | | unspecified whether | | | | | | ascites present | | | | | | (HCC) | | + +--------+ + + + | CBC, WITH | Routin | 06/12/2018 | Hepatic cirrhosis, | Results for this | | DIFFERENTIAL | e | 9:23 AM | unspecified hepatic | procedure are in the | | | | PDT | cirrhosis type, | results section. | | | | | unspecified whether | | | | | | ascites present | | | | | | (HCC) | | + +--------+ + + + | COMPLETE METABOLIC | Routin | 06/12/2018 | Hepatic cirrhosis, | Results for this | | SET | e | 9:23 AM | unspecified hepatic | procedure are in the | | (NA,K,CL,CO2,BUN,CRE | | PDT | cirrhosis type, | results section. | | AT,GLUC,CA,AST,ALT,B | | | unspecified whether | | | CASSIA TOTAL,ALK | | | ascites present | | | PHOS,ALB,PROT TOTAL) | | | (HCC) | | + +--------+ + + + | ANTI SMOOTH MUSCLE | Routin | 06/12/2018 | Hepatic cirrhosis, | Results for this | | AB, SERUM | e | 9:23 AM | unspecified hepatic | procedure are in the | | | | PDT | cirrhosis type, | results section. | | | | | unspecified whether | | | | | | ascites present | | | | | | (HCC) | | + +--------+ + + + | ANTI MITOCHONDRIAL | Routin | 06/12/2018 | Hepatic cirrhosis, | Results for this | | AB, SERUM | e | 9:23 AM | unspecified hepatic | procedure are in the | | | | PDT | cirrhosis type, | results section. | | | | | unspecified whether | | | | | | ascites present | | | | | | (HCC) | | + +--------+ + + + | CERULOPLASMIN, SERUM | Routin | 06/12/2018 | Hepatic cirrhosis, | Results for this | | | e | 9:23 AM | unspecified hepatic | procedure are in the | | | | PDT | cirrhosis type, | results section. | | | | | unspecified whether | | | | | | ascites present | | | | | | (HCC) | | + +--------+ + + + | ALPHA 1 ANTITRYPSIN, | Routin | 06/12/2018 | Hepatic cirrhosis, | Results for this | | SERUM | e | 9:23 AM | unspecified hepatic | procedure are in the | | | | PDT | cirrhosis type, | results section. | | | | | unspecified whether | | | | | | ascites present | | | | | | (HCC) | | + +--------+ + + + | ALPHA-FETOPROTEIN | Routin | 06/12/2018 | Hepatic cirrhosis, | Results for this | | TUMOR MARKER, SERUM | e | 9:23 AM | unspecified hepatic | procedure are in the | | | | PDT | cirrhosis type, | results section. | | | | | unspecified whether | | | | | | ascites present | | | | | | (HCC) | | + +--------+ + + + | FERRITIN | Routin | 06/12/2018 | Hepatic cirrhosis, | Results for this | | | e | 9:23 AM | unspecified hepatic | procedure are in the | | | | PDT | cirrhosis type, | results section. | | | | | unspecified whether | | | | | | ascites present | | | | | | (HCC) | | + +--------+ + + + | BILIRUBIN DIRECT | Routin | 06/12/2018 | Hepatic cirrhosis, | Results for this | | | e | 9:23 AM | unspecified hepatic | procedure are in the | | | | PDT | cirrhosis type, | results section. | | | | | unspecified whether | | | | | | ascites present | | | | | | (HCC) | | + +--------+ + + + | IRON AND TIBC, SERUM | Routin | 06/12/2018 | Hepatic cirrhosis, | Results for this | | | e | 9:23 AM | unspecified hepatic | procedure are in the | | | | PDT | cirrhosis type, | results section. | | | | | unspecified whether | | | | | | ascites present | | | | | | (HCC) | | + +--------+ + + + documented in this encounter Results DSDNA AB, IGG W/REFLEX TO IFA TITER (06/12/2018 9:23 AM PDT) + + + + + + | Component | Value | Ref Range | Performed | Pathologist | | | | | At | Signature | + + + + + + | DS-DNA AB, | None DetectedComment: | None Detected | [facility] | | | IGG KRYSTIAN | INTERPRETIVE | | REG UNIV | | | | INFORMATION: | | PTH - INTFC | | | | Double-Stranded DNA | | | | | | (dsDNA) Antibody, IgG by | | | | | | KRYSTIAN Positivity for | | | | | | anti-double stranded DNA | | | | | | (anti-dsDNA) IgG | | | | | | antibody is a diagnostic | | | | | | criterion of systemic | | | | | | lupus erythematosus | | | | | | (SLE). Specimens are | | | | | | initially screened by | | | | | | enzyme-linked | | | | | | immunosorbent assay | | | | | | (KRYSTIAN). All KRYSTIAN | | | | | | results reported as | | | | | | "detected" (positive) | | | | | | are confirmed by a | | | | | | highly specific IFA | | | | | | titer (Crithidia | | | | | | luciliae indirect | | | | | | fluorescent test | | | | | | [IRMA]). Some patients | | | | | | with early or inactive | | | | | | SLE may be positive for | | | | | | anti-dsDNA IgG by KRYSTIAN | | | | | | but negative by IRMA. | | | | | | If the patient is | | | | | | negative by IRMA but | | | | | | positive by KRYSTIAN and | | | | | | clinical suspicion | | | | | | remains, consider | | | | | | antinuclear antibody | | | | | | (KELY) testing by IFA. | | | | | | Additional information | | | | | | and recommendations for | | | | | | testing may be found at | | | | | | [email or web address] | | | | | | [email or web address] | | | | | | [email or web address]. | | | | | | html.Performed by [facility] | | | | | | [address] | | | | | | [address], [place] [address] | | | | | | [phone]. | | | | | | Marcus pearl MD, | | | | | | Lab. Director | | | | + + + + + + + + | Specimen | + + | Blood - Blood | | (substance) | + + + + + + + | Performing | Address | City/State/Zipcode | Phone Number | | Organization | | | | + + + + + | [facility] | [address] | [place], [place] | | | UNIV PTH - INTFC | | [address] | | + + + + + SSB AB (06/12/2018 9:23 AM PDT) + + + + + + | Component | Value | Ref Range | Performed | Pathologist | | | | | At | Signature | + + + + + + | SSB (LA) | 0Comment: INTERPRETIVE | 0 - 40 AU/mL | [facility] | | | AB, IGG | INFORMATION: SSB ([place]) | | REG UNIV | | | | (FLO) Ab, IgG 29 | | PTH - INTFC | | | | AU/mL or Less | | | | | | ............. Negative | | | | | | 30 - 40 AU/mL | | | | | | ................ | | | | | | Equivocal 41 AU/mL or | | | | | | Greater .......... | | | | | | Positive SSB ([place]) | | | | | | antibody is seen in | | | | | | 50-60% of Sjogren | | | | | | syndrome cases and is | | | | | | specific if it is the | | | | | | only FLO antibody | | | | | | present. 15-25% of | | | | | | patients with systemic | | | | | | lupus erythematosus | | | | | | (SLE) and 5-10% of | | | | | | patients with | | | | | | progressive systemic | | | | | | sclerosis (PSS) also | | | | | | have this | | | | | | antibody.Performed by | | | | | | [facility],[address] | | | | | | [address], [facility],[place] | | | | | | [address] | | | | | | [phone].[facility]. | | | | | | Marcus pearl MD, | | | | | | Lab. Director | | | | + + + + + + + + | Specimen | + + | Blood - Blood | | (substance) | + + + + + + + | Performing | Address | City/State/Zipcode | Phone Number | | Organization | | | | + + + + + | [facility] | [address] | [place], [place] | | | UNIV PTH - INTFC | | [address] | | + + + + + SSA AB (06/12/2018 9:23 AM PDT) + + + + + + | Component | Value | Ref Range | Performed | Pathologist | | | | | At | Signature | + + + + + + | SSA 52 (RO) | 12Comment: INTERPRETIVE | 0 - 40 AU/mL | [facility] | | | AB, IGG | INFORMATION: SSA-52 | | REG UNIV | | | | (Ro52) (FLO) Antibody, | | PTH - INTFC | | | | IgG 29 AU/mL or Less | | | | | | ............. Negative | | | | | | 30 - 40 AU/mL | | | | | | ................ | | | | | | Equivocal 41 AU/mL or | | | | | | Greater .......... | | | | | | Positive SSA-52 (Ro52) | | | | | | and/or SSA-60 (Ro60) | | | | | | antibodies are | | | | | | associated with a | | | | | | diagnosis of Sjogren | | | | | | syndrome, systemic lupus | | | | | | erythematosus (SLE), | | | | | | and systemic sclerosis. | | | | | | SSA-52 antibody overlaps | | | | | | significantly with the | | | | | | major SSc-related | | | | | | antibodies. SSA-52 | | | | | | (Ro52) antibody occurs | | | | | | frequently in patients | | | | | | with inflammatory | | | | | | myopathies, often in the | | | | | | presence of | | | | | | interstitial lung | | | | | | disease. | | | | + + + + + + | SSA 60 (RO) | 4Comment: REFERENCE | 0 - 40 AU/mL | [facility] | | | (FLO) | INTERVAL: SSA-60 (Ro60) | | REG UNIV | | | ANTIBODY, | (FLO) Antibody, IgG | | PTH - INTFC | | | IGG | 29 AU/mL or Less | | | | | | ............. Negative | | | | | | 30 - 40 AU/mL | | | | | | ................ | | | | | | Equivocal 41 AU/mL or | | | | | | Greater .......... | | | | | | PositivePerformed by | | | | | | [facility],[address] | | | | | | [address], [facility] [place],[place] | | | | | | [address] | | | | | | [phone].[facility]. | | | | | | Marcus pearl MD, | | | | | | Lab. Director | | | | + + + + + + + + | Specimen | + + | Blood - Blood | | (substance) | + + + + + + + | Performing | Address | City/State/Zipcode | Phone Number | | Organization | | | | + + + + + | [facility] | [address] | [place], [place] | | | UNIV PTH - INTFC | | [address] | | + + + + + SM AB (06/12/2018 9:23 AM PDT) + + + + + + | Component | Value | Ref Range | Performed | Pathologist | | | | | At | Signature | + + + + + + | PINZON AB, | 0Comment: INTERPRETIVE | 0 - 40 AU/mL | [facility] | | | IGG | INFORMATION: PINZON (FLO) | | REG UNIV | | | | Ab, IgG 29 AU/mL or | | PTH - INTFC | | | | Less ............. | | | | | | Negative 30 - 40 AU/mL | | | | | | ................ | | | | | | Equivocal 41 AU/mL or | | | | | | Greater .......... | | | | | | Positive Pinzon antibody | | | | | | is very specific for | | | | | | systemic lupus | | | | | | erythematosus (SLE) but | | | | | | only occurs in 30-35% of | | | | | | SLE cases. The presence | | | | | | of antibodies to Pinzon | | | | | | is often associated with | | | | | | renal disease.Performed | | | | | | by [facility] | | | | | | [facility],[address] [facility] | | | | | | [place], [facility] [place] [address] | | | | | | [phone].[email or web address]. | | | | | | Marcus pearl MD, | | | | | | Lab. Director | | | | + + + + + + + + | Specimen | + + | Blood - Blood | | (substance) | + + + + + + + | Performing | Address | City/State/Zipcode | Phone Number | | Organization | | | | + + + + + | [facility] | [address] | [place], [place] | | | UNIV PTH - INTFC | | [address] | | + + + + + OFFICE RUNNER AB (06/12/2018 9:23 AM PDT) + + + + + + | Component | Value | Ref Range | Performed | Pathologist | | | | | At | Signature | + + + + + + | PINZON/OFFICE RUNNER | 0Comment: INTERPRETIVE | 0 - 40 AU/mL | [facility] | | | (FLO) AB, | INFORMATION: Ribonucleic | | REG UNIV | | | IGG | Protein (FLO)Antibody, | | PTH - INTFC | | | | IgG 29 AU/mL or Less | | | | | | ............. Negative | | | | | | 30 - 40 AU/mL | | | | | | ................ | | | | | | Equivocal 41 AU/mL or | | | | | | Greater .......... | | | | | | Positive OFFICE RUNNER antibody is | | | | | | seen in 95-100 percent | | | | | | of mixed connective | | | | | | tissue disease and is | | | | | | considered specific for | | | | | | this syndrome if other | | | | | | antibodies are negative; | | | | | | OFFICE RUNNER is also present in | | | | | | 20-30 percent of | | | | | | systemic lupus | | | | | | erythematosus and 15-25 | | | | | | percent of progressive | | | | | | systemic sclerosis. OFFICE RUNNER | | | | | | antigens also contain | | | | | | epitopes that are | | | | | | immunologically | | | | | | identical to free Pinzon | | | | | | antigens, therefore, the | | | | | | Pinzon antibody response | | | | | | must be considered when | | | | | | interpreting OFFICE RUNNER | | | | | | results.Performed by | | | | | | [facility],[address] | | | | | | [place] | | | | | | [address] | | | | | | [phone].[facility]. | | | | | | Marcus pearl MD, | | | | | | Lab. Director | | | | + + + + + + + + | Specimen | + + | Blood - Blood | | (substance) | + + + + + + + | Performing | Address | City/State/Zipcode | Phone Number | | Organization | | | | + + + + + | [facility] | [address] | [place], [place] | | | UNIV PTH - INTFC | | [address] | | + + + + + ANTI-NUCLEAR AB, IGG BY IFA (06/12/2018 9:23 AM PDT) + + + + + + | Component | Value | Ref Range | Performed | Pathologist | | | | | At | Signature | + + + + + + | ANTI-NUCLEA | 1:160 (H)Comment: | <1:80 | [facility] | | | R AB(KELY), | Homogeneous pattern. | | REG UNIV | | | IGG BY IFA | Extractable Nuclear | | PTH - INTFC | | | | Antigen Antibodies (OFFICE RUNNER, | | | | | | Pinzon, SSA 52, SSA 60, | | | | | | and SSB), and Double | | | | | | Stranded DNA (dsDNA) | | | | | | Antibody IgG to | | | | | | follow.INTERPRETIVE | | | | | | INFORMATION: KELY by IFA, | | | | | | IgG Presence of | | | | | | antinuclear antibodies | | | | | | (KELY) is a hallmark | | | | | | feature of systemic | | | | | | autoimmune rheumatic | | | | | | diseases (SARD). KELY | | | | | | lacks diagnostic | | | | | | specificity and is | | | | | | associated with a | | | | | | variety of diseases | | | | | | (cancers, autoimmune, | | | | | | infectious, and | | | | | | inflammatory conditions) | | | | | | and may also occur in | | | | | | healthy individuals in | | | | | | varying prevalence. The | | | | | | lack of diagnostic | | | | | | specificity requires | | | | | | confirmation of positive | | | | | | KELY by more-specific | | | | | | serologic tests. | | | | | | Diagnosis may be aided | | | | | | by the pattern(s) | | | | | | observed. Negative | | | | | | results do not | | | | | | necessarily rule out | | | | | | SARD.Performed by [facility] | | | | | | [facility],[address] | | | | | | [place], [facility] [place] [address] | | | | | | [phone].[employer] | | | | | | Marcus pearl MD, | | | | | | Lab. Director | | | | + + + + + + + + | Specimen | + + | Blood - Blood | | (substance) | + + + + + + + | Performing | Address | City/State/Zipcode | Phone Number | | Organization | | | | + + + + + | [facility] | [address] | [place], [place] | | | UNIV PTH - INT[facility] | | [address] | | + + + + + CBC AND AUTO DIFF (06/12/2018 9:23 AM PDT) + +---------+ + + + | Component | Value | Ref Range | Performed | Pathologist | | | | | At | Signature | + +---------+ + + + | WHITE CELL | 6.68 | 3.50 - 10.80 | [facility] | | | COUNT | | K/cu mm | LABORATORY | | | | | | SERVICES, | | | | | | [facility] | | + +---------+ + + + | RED CELL | 4.82 | 4.00 - 5.20 | [facility] | | | COUNT | | M/cu mm | LABORATORY | | | | | | SERVICES, | | | | | | [facility] | | | | | [facility] | | + +---------+ + + + | HEMOGLOBIN | 14.2 | 12.0 - 16.0 | [facility] | | | | | g/dL | LABORATORY | | | | | | SERVICES, | | | | | | [facility] | | | | | | [facility] | | + +---------+ + + + | HEMATOCRIT | 40.8 | 36.0 - 46.0 % | [facility] | | | | | | LABORATORY | | | | | | SERVICES, | | | | | | [facility] | | | | | | [facility] | | + +---------+ + + + | MCV | 84.6 | 80.0 - 100.0 fL | [facility] | | | | | | LABORATORY | | | | | | SERVICES, | | | | | | [facility] | | | | | | [facility] | | + +---------+ + + + | MCHC | 34.8 | 32.0 - 36.0 | [facility] | | | | | g/dL | LABORATORY | | | | | | SERVICES, | | | | | | [facility] | | | | | | [facility] | | + +---------+ + + + | RDW SD | 44.1 | 35.1 - 46.3 fL | [facility] | | | | | | LABORATORY | | | | | | SERVICES, | | | | | | [facility] | | | | | [facility] | | + +---------+ + + + | PLATELET | 209 | 150 - 400 K/cu | [facility] | | | COUNT | | mm | LABORATORY | | | | | | SERVICES, | | | | | | [facility] | | | | | [facility] | | + +---------+ + + + | MPV | 9.2 (L) | 9.7 - 12.3 fL | [facility] | | | | | | LABORATORY | | | | | | SERVICES, | | | | | | [facility] | | | | | | [facility] | | + +---------+ + + + | NEUTROPHIL | 65.5 | 50.0 - 70.0 % | [facility] | | | % | | | LABORATORY | | | | | | SERVICES, | | | | | | [facility] | | | | | | [facility] | | + +---------+ + + + | LYMPHOCYTE | 22.6 | 18.0 - 42.0 % | [facility] | | | % | | | LABORATORY | | | | | | SERVICES, | | | | | | [facility] | | | | | | [facility] | | + +---------+ + + + | MONOCYTE % | 7.6 | 3.5 - 9.0 % | [facility] | | | | | | LABORATORY | | | | | | SERVICES, | | | | | | [facility] | | | | | | [facility] | | + +---------+ + + + | EOS % | 3.7 (H) | 1.0 - 3.0 % | [facility] | | | | | | LABORATORY | | | | | | SERVICES, | | | | | | [facility] | | | | | | [facility] | | + +---------+ + + + | BASO % | 0.6 | 0.0 - 2.0 % | [facility] | | | | | | LABORATORY | | | | | | SERVICES, | | | | | | [facility] | | | | | | [facility] | | + +---------+ + + + | NEUTROPHIL | 4.37 | 1.80 - 7.70 | [facility] | | | # | | K/cu mm | LABORATORY | | | | | | SERVICES, | | | | | | [facility] | | | | | | [facility] | | + +---------+ + + + | LYMPHOCYTE | 1.51 | 1.00 - 4.80 | [facility] | | | # | | K/cu mm | LABORATORY | | | | | | SERVICES, | | | | | | [facility] | | | | | | [facility] | | + +---------+ + + + | MONOCYTE # | 0.51 | 0.10 - 0.90 | [facility] | | | | | K/cu mm | LABORATORY | | | | | | SERVICES, | | | | | | [facility] | | | | | | [facility] | | + +---------+ + + + | EOS # | 0.25 | 0.00 - 0.50 | [facility] | | | | | K/cu mm | LABORATORY | | | | | | SERVICES, | | | | | | [facility] | | | | | | [facility] | | + +---------+ + + + | BASO # | 0.04 | 0.00 - 0.10 | [facility] | | | | | K/cu mm | LABORATORY | | | | | | SERVICES, | | | | | | [facility] | | | | | | [facility] | | + +---------+ + + + + + | Specimen | + + | Blood - Blood | | (substance) | + + + + + | Narrative | Performed At | + + + | New pediatric reference ranges for Lymphocyte % in effect April 23, | [facility] | | 2017. | LABORATORY | | | SERVICES, | | | [facility] + | | | [facility] | + + + + + + + + | Performing | Address | City/State/Zipcode | Phone Number | | Organization | | | | + + + + + | [facility] | [address] | [place] [address] | | | SERVICES, [facility] | | [facility] | [facility] + [facility] | | | | + + + + + TSH W/REFLEX TO FREE T4(IF ABNORMAL) (06/12/2018 9:23 AM PDT) + +-------+ + + + | Component | Value | Ref Range | Performed | Pathologist | | | | | At | Signature | + +-------+ + + + | TSH | 3.82 | 0.44 - 4.75 | [facility] | | | | | mIU/L | LABORATORY | | | | | | SERVICES, | | | | | | CORE | | + +-------+ + + + + + | Specimen | + + | Blood - Blood | | (substance) | + + + + + | Narrative | Performed At | + + + | TSH reference ranges are influenced by a variety of environmental | [facility] | | influences, age, gender and ethnicity. The supplied reference limits | LABORATORY | | are based on published values utilizing a similar TSH assay, and | SERVICES, CORE | | should be interpreted with caution. | | + + + + + + + + | Performing | Address | City/State/Zipcode | Phone Number | | Organization | | | | + + + + + | [facility] | [address] | [place] [address] | | | SERVICES, CORE | [address] | | | + + + + + ALPHA-FETOPROTEIN TUMOR MARKER, SERUM (06/12/2018 9:23 AM PDT) + +-------+ + + + | Component | Value | Ref Range | Performed | Pathologist | | | | | At | Signature | + +-------+ + + + | AFP TUMOR | 2.6 | <=9.0 ng/mL | [facility] | | | MARKER | | | LABORATORY | | | SERUM, [facility] | | | SERVICES, | | | | | | CORE | | + +-------+ + + + + + | Specimen | + + | Blood - Blood | | (substance) | + + + + + + + | Performing | Address | City/State/Zipcode | Phone Number | | Organization | | | | + + + + + | [facility] | [address] | [place] [address] | | | RICHARD PIZARRO | [address] | | | + + + + + BILIRUBIN DIRECT (06/12/2018 9:23 AM PDT) + +---------+ + + + | Component | Value | Ref Range | Performed | Pathologist | | | | | At | Signature | + +---------+ + + + | BILIRUBIN | 0.4 (H) | 0.0 - 0.3 mg/dL | [facility] | | | DIRECT | | | LABORATORY | | | | | | SERVICES, | | | | | | CORE | | + +---------+ + + + | BILI D CMNT | No Hemo | | [facility] | | | | | | LABORATORY | | | | | | SERVICES, | | | | | | CORE | | + +---------+ + + + + + | Specimen | + + | Blood - Blood | | (substance) | + + + + + + + | Performing | Address | City/State/Zipcode | Phone Number | | Organization | | | | + + + + + | [facility] | [address] | [place] [address] | | | SERVICES, CORE | [address] | | | + + + + + INR (06/12/2018 9:23 AM PDT) + +-------+ + + + | Component | Value | Ref Range | Performed | Pathologist | | | | | At | Signature | + +-------+ + + + | INR | 1.02 | 0.90 - 1.20 INR | [facility] | | | | | | LABORATORY | | | | | | SERVICES, | | | | | | CORE | | + +-------+ + + + + + | Specimen | + + | Blood - Blood | | (substance) | + + + + + | Narrative | Performed At | + + + | INR Therapeutic ranges for full anticoagulation: INR for | [facility] | | Venous Thromboembolism (2.0 - 3.0) INR INR for | LABORATORY | | most patients with mech. valves (2.5 - 3.5) INR | SERVICES, CORE | + + + + + + + + | Performing | Address | City/State/Zipcode | Phone Number | | Organization | | | | + + + + + | [facility] | [address] | [place] [address] | | | SERVICES, CORE | [address] | | | + + + + + COMPLETE METABOLIC SET (NA,K,CL,CO2,BUN,CREAT,GLUC,CA,AST,ALT,BILI TOTAL,ALK PHOS,ALB,PROT TOTAL) (06/12/2018 9:23 AM PDT) + +---------+ + + + | Component | Value | Ref Range | Performed | Pathologist | | | | | At | Signature | + +---------+ + + + | GLUCOSE, | 399 (H) | 70 - 99 mg/dL | [facility] | | | PLASMA | | | LABORATORY | | | (LAB) | | | SERVICES, | | | | | | CORE | | + +---------+ + + + | BUN, PLASMA | 12 | 6 - 20 mg/dL | [facility] | | | (LAB) | | | LABORATORY | | | | | | SERVICES, | | | | | | CORE | | + +---------+ + + + | CREATININE | 0.60 | 0.60 - 1.10 | [facility] | | | PLASMA | | mg/dL | LABORATORY | | | (LAB) | | | SERVICES, | | | | | | CORE | | + +---------+ + + + | EGFR | >60 | >60 mL/min | [facility] | | | - | | | LABORATORY | | | BURUNDIAN | | | SERVICES, | | | | | | CORE | | + +---------+ + + + | EGFR NON | >60 | >60 mL/min | [facility] | | | -NATALIE | | | LABORATORY | | | RICAN | | | SERVICES, | | | | | | CORE | | + +---------+ + + + | SODIUM, | 137 | 136 - 145 | [facility] | | | PLASMA | | mmol/L | LABORATORY | | | (LAB) | | | SERVICES, | | | | | | CORE | | + +---------+ + + + | POTASSIUM, | 3.4 | 3.4 - 5.0 | [facility] | | | PLASMA | | mmol/L | LABORATORY | | | (LAB) | | | SERVICES, | | | | | | CORE | | + +---------+ + + + | CHLORIDE, | 102 | 97 - 108 mmol/L | [facility] | | | PLASMA | | | LABORATORY | | | (LAB) | | | SERVICES, | | | | | | CORE | | + +---------+ + + + | TOTAL CO2, | 22 | 21 - 32 mmol/L | [facility] | | | PLASMA | | | LABORATORY | | | (LAB) | | | SERVICES, | | | | | | CORE | | + +---------+ + + + | CALCIUM, | 9.2 | 8.6 - 10.2 | [facility] | | | PLASMA | | mg/dL | LABORATORY | | | (LAB) | | | SERVICES, | | | | | | CORE | | + +---------+ + + + | CALCIUM(ALB | 9.2 | 8.6 - 10.2 | [facility] | | | CORRECTED) | | mg/dL | LABORATORY | | | | | | SERVICES, | | | | | | CORE | | + +---------+ + + + | BILIRUBIN | 3.3 (H) | 0.3 - 1.2 mg/dL | [facility] | | | TOTAL | | | LABORATORY | | | | | | SERVICES, | | | | | | CORE | | + +---------+ + + + | TOTAL | 8.7 (H) | 6.4 - 8.2 g/dL | [facility] | | | PROTEIN, | | | LABORATORY | | | PLASMA | | | SERVICES, | | | (LAB) | | | CORE | | + +---------+ + + + | ALBUMIN, | 4.0 | 3.5 - 4.7 g/dL | [facility] | | | PLASMA | | | LABORATORY | | | (LAB) | | | SERVICES, | | | | | | CORE | | + +---------+ + + + | ALK PHOS | 94 | 42 - 98 U/L | [facility] | | | | | | LABORATORY | | | | | | SERVICES, | | | | | | CORE | | + +---------+ + + + | AST(SGOT) | 69 (H) | <=41 U/L | [facility] | | | | | | LABORATORY | | | | | | SERVICES, | | | | | | CORE | | + +---------+ + + + | ALT (SGPT) | 26 | <=60 U/L | [facility] | | | | | | LABORATORY | | | | | | SERVICES, | | | | | | CORE | | + +---------+ + + + | ANION GAP | 13 (H) | 4 - 11 mmol/L | [facility] | | | | | | LABORATORY | | | | | | SERVICES, | | | | | | CORE | | + +---------+ + + + | ANION | 13 (H) | 4 - 11 mmol/L | [facility] | | | GAP(ALB | | | LABORATORY | | | CORRECTED) | | | SERVICES, | | | | | | CORE | | + +---------+ + + + | POTASSIUM | No Hemo | | [facility] | | | CMNT | | | LABORATORY | | | | | | SERVICES, | | | | | | CORE | | + +---------+ + + + | BILI T CMNT | No Hemo | | [facility] | | | | | | LABORATORY | | | | | | SERVICES, | | | | | | CORE | | + +---------+ + + + | AST CMNT | No Hemo | | [facility] | | | | | | LABORATORY | | | | | | SERVICES, | | | | | | CORE | | + +---------+ + + + + + | Specimen | + + | Blood - Blood | | (substance) | + + + + + | Narrative | Performed At | + + + | GFR is estimated using the MDRD equation recommended by the | [facility] | | National Kidney Disease Education Program. Estimated GFR | LABORATORY | | Interpretive Information: <60 mL/min/1.73 sq m | SERVICES, CORE | | Chronic Kidney Disease <15 mL/min/1.73 sq m | | | Kidney Failure Estimated GFR greater that 60 mL/min/1.73 sq m is of | | | limited clinical value. The MDRD equation is not valid in the | | | following situations: - Patients under 18 years of age - Severe | | | malnutrition or obesity - Vegetarian diet - Rapidly changing kidney | | | function - Amputees, paraplegics, or other muscle-wasting diseses | | + + + + + + + + | Performing | Address | City/State/Zipcode | Phone Number | | Organization | | | | + + + + + | [facility] | [address] | [place] [address] | | | SERVICES, CORE | [address] | | | + + + + + IRON AND TIBC (06/12/2018 9:23 AM PDT) + +-------+ + + + | Component | Value | Ref Range | Performed | Pathologist | | | | | At | Signature | + +-------+ + + + | IRON | 92 | 30 - 160 ug/dL | [facility] | | | | | | LABORATORY | | | | | | SERVICES, | | | | | | CORE | | + +-------+ + + + | IRON BIND | 420 | 240 - 450 ug/dL | [facility] | | | CAP | | | LABORATORY | | | | | | SERVICES, | | | | | | CORE | | + +-------+ + + + | % | 22 | 20 - 50 % | [facility] | | | SATURATION | | | LABORATORY | | | TRANSFERRIN | | | SERVICES, | | | , | | | CORE | | + +-------+ + + + + + | Specimen | + + | Blood - Blood | | (substance) | + + + + + + + | Performing | Address | City/State/Zipcode | Phone Number | | Organization | | | | + + + + + | [facility] | [address] | [place] [address] | | | SERVICES, CORE | [address] | | | + + + + + FERRITIN (06/12/2018 9:23 AM PDT) + + + + + + | Component | Value | Ref Range | Performed | Pathologist | | | | | At | Signature | + + + + + + | FERRITIN | 143Comment: Male and | 50 - 200 ng/mL | [facility] | | | | Female >18 years: | | LABORATORY | | | | <20 ng/mL: | | SERVICES, | | | | Consistant with iron | | CORE | | | | deficiency 21-50 | | | | | | ng/mL: Possible | | | | | | iron deficiency 51-99 | | | | | | ng/mL: Iron | | | | | | deficiency unlikely | | | | | | unless inflammation | | | | | | present or | | | | | | patient | | | | | | >65 years of age | | | | | | 100-200 ng/mL: | | | | | | Normal, not consistent | | | | | | with iron deficiency | | | | | | >200 ng/mL: If | | | | | | transferrin saturation | | | | | | >45%, consider | | | | | | hemochromatosis | | | | + + + + + + + + | Specimen | + + | Blood - Blood | | (substance) | + + + + + + + | Performing | Address | City/State/Zipcode | Phone Number | | Organization | | | | + + + + + | [facility] | [address] | [place] [address] | | | JUAREZ, RICHARD | [address] | | | + + + + + LIVER - KIDNEY MICROSOME-1 AB IGG, SERUM (06/12/2018 9:23 AM PDT) + + + + + + | Component | Value | Ref Range | Performed | Pathologist | | | | | At | Signature | + + + + + + | LIVER-KIDNE | 1.1Comment: INTERPRETIVE | 0.0 - 24.9 U | [facility] | | | Y | INFORMATION: | | REG UNIV | | | MICROSOME-1 | Liver-Kidney Microsome-1 | | PTH - INTFC | | | AB, IGG | Antibody, IgG by | | | | | | | | | | | | KRSYTIAN 0.0 - | | | | | | 20.0 U .............. | | | | | | Negative 20.1 - 24.9 U | | | | | | ............. Equivocal | | | | | | 25.0 U or Greater | | | | | | ......... Positive A | | | | | | positive result | | | | | | indicates the presence | | | | | | of IgG antibodies to | | | | | | recombinant human P450 | | | | | | 2D6 and suggests the | | | | | | possibility of | | | | | | autoimmune hepatitis, | | | | | | type 2. A negative | | | | | | LKM-1 does not rule out | | | | | | the presence of | | | | | | autoimmune hepatitis, | | | | | | type 2.Performed by [facility] | | | | | | [facility],[address] | | | | | [address], [facility],[place] | | | | | | [address] | | | | | | [phone]. | | | | | | [facility] center[facility]us MD, | | | | | | Lab. Director | | | | + + + + + + + + | Specimen | + + | Blood - Blood | | (substance) | + + + + + + + | Performing | Address | City/State/Zipcode | Phone Number | | Organization | | | | + + + + + | [facility] | [address] | [place], [place] | | | UNIV PTH - INTFC | | [address] | | + + + + + KELY BY KRYSTIAN W/REFLEX TO IFA PATTERN & AB ID WHEN INDICATED (06/12/2018 9:23 AM PDT) + + + + + + | Component | Value | Ref Range | Performed | Pathologist | | | | | At | Signature | + + + + + + | ANTI-NUCLEA | Detected (A)Comment: | None Detected | [facility] | | | R AB(KELY), | Antibodies to | | REG UNIV | | | IGG BY | Anti-Nuclear Antibodies | | PTH - INTFC | | | KRYSTIAN | (KELY) detected. | | | | | | Additional testing to | | | | | | follow.INTERPRETIVE | | | | | | INFORMATION: | | | | | | Anti-Nuclear Antibodies | | | | | | (KELY), IgG by KRYSTIAN | | | | | | Anti-Nuclear Antibodies | | | | | | (KELY), IgG by KRYSTIAN: KELY | | | | | | specimens are screened | | | | | | using enzyme-linked | | | | | | immunosorbent assay | | | | | | (KRYSTIAN) methodology. All | | | | | | KRYSTIAN results reported | | | | | | as Detected are further | | | | | | tested by indirect | | | | | | fluorescent assay (IFA) | | | | | | using HEp-2 substrate | | | | | | with an IgG-specific | | | | | | conjugate. The KELY KRYSTIAN | | | | | | screen is designed to | | | | | | detect antibodies | | | | | | against dsDNA, histone, | | | | | | SS-A (Ro), SS-B (La), | | | | | | [place], snRNP/Sm, Scl-70, | | | | | | Shelly-1, centromere, and | | | | | | an extract of lysed | | | | | | HEp-2 cells. KELY KRYSTIAN | | | | | | assays have been | | | | | | reported to have lower | | | | | | sensitivities than KELY | | | | | | IFA for systemic | | | | | | autoimmune rheumatic | | | | | | diseases (SARD). | | | | | | Negative results do not | | | | | | necessarily rule out | | | | | | SARD.Performed by [facility] | | | | | | [facility],[address] [facility] [address] | | | | | | [place], [facility] [place] [address] | | | | | | [phone]. | | | | | | Marcus pearl MD, | | | | | | Lab. Director | | | | + + + + + + + + | Specimen | + + | Blood - Blood | | (substance) | + + + + + + + | Performing | Address | City/State/Zipcode | Phone Number | | Organization | | | | + + + + + | [facility] | [address] | [place], [place] | | | UNIV PTH - INTFC | | [address] | | + + + + + ANTI SMOOTH MUSCLE AB, SERUM (06/12/2018 9:23 AM PDT) + + + + + + | Component | Value | Ref Range | Performed | Pathologist | | | | | At | Signature | + + + + + + | ANTI-SMOOTH | NegativeComment: | Negative | [facility] | | | MUSCLE | Anti-mitochrondrial | | [place] - | | | | antibodies (AMA), | | [place] | | | | anti-smooth muscle | | | | | | antibodies (ASMA) and | | | | | | anti-parietal cell | | | | | | antibodies (APCA) can | | | | | | all be detected with the | | | | | | same lab method. If the | | | | | | lab finds any | | | | | | additional antibodies | | | | | | other than the one | | | | | | ordered these other | | | | | | results will be ordered | | | | | | and reported as well. | | | | + + + + + + + + | Specimen | + + | Blood - Blood | | (substance) | + + + + + + + | Performing | Address | City/State/Zipcode | Phone Number | | Organization | | | | + + + + + | [facility] | [address] | [place] [address] | | | [place] | | | | + + + + + ANTI MITOCHONDRIAL AB, SERUM (06/12/2018 9:23 AM PDT) + + + + + + | Component | Value | Ref Range | Performed | Pathologist | | | | | At | Signature | + + + + + + | ANTI-MITOCH | NegativeComment: | Negative | [facility] | | | [place], | Anti-mitochrondrial | | [place] - | | | SERUM | antibodies (AMA), | | [place] | | | | anti-smooth muscle | | | | | | antibodies (ASMA) and | | | | | | anti-parietal cell | | | | | | antibodies (APCA) can | | | | | | all be detected with the | | | | | | same lab method. If the | | | | | | lab finds any | | | | | | additional antibodies | | | | | | other than the one | | | | | | ordered these other | | | | | | results will be ordered | | | | | | and reported as well. | | | | + + + + + + + + | Specimen | + + | Blood - Blood | | (substance) | + + + + + + + | Performing | Address | City/State/Zipcode | Phone Number | | Organization | | | | + + + + + | [facility] | [address] | [place] [address] | | | [place] | | | | + + + + + CERULOPLASMIN, SERUM (06/12/2018 9:23 AM PDT) + + + + + + | Component | Value | Ref Range | Performed | Pathologist | | | | | At | Signature | + + + + + + | CERULOPLASM | 31Comment: REFERENCE | 17 - 54 mg/dL | [facility] | | | IN | INTERVAL: Ceruloplasmin | | REG UNIV | | | | Access complete set of | | PTH - INTFC | | | | age- and/or | | | | | | gender-specific | | | | | | reference intervals for | | | | | | this test in the [facility] | | | | | | Laboratory Test | | | | | | Directory | | | | | | ([employer]ubitus).Performed | | | | | | by [facility],[address] | | | | | | [address], [facility],[place] | | | | | | [address] | | | | | | [phone].[employer] | | | | | | com, Marcus Hoyt MD, | | | | | | Lab. Director | | | | + + + + + + + + | Specimen | + + | Blood - Blood | | (substance) | + + + + + + + | Performing | Address | City/State/Zipcode | Phone Number | | Organization | | | | + + + + + | [facility] | [address] | [place], [place] | | | UNIV PTH - INTFC | | [address] | | + + + + + ALPHA 1 ANTITRYPSIN, SERUM (06/12/2018 9:23 AM PDT) + + + + + + | Component | Value | Ref Range | Performed | Pathologist | | | | | At | Signature | + + + + + + | ALPHA 1 | 176Comment: To convert | 90 - 200 mg/dL | [facility] | | | ANTITRY SER | to umol/L, multiply | | REG UNIV | | | | mg/dL by 0.185Performed | | PTH - INTFC | | | | by [facility],[address] | | | | | | [address], [facility] [facility],[place] | | | | | | [address] | | | | | | [phone].[email or web address]. | | | | | | [facility] centerMarcus MD, | | | | | | Lab. Director | | | | + + + + + + + + | Specimen | + + | Blood - Blood | | (substance) | + + + + + + + | Performing | Address | City/State/[facility] | Phone Number | | Organization | | | | + + + + + | [facility] | [address] | [place], [place] | | | UNIV PTH - INTFC | | [address] | | + + + + + documented in this encounter Visit Diagnoses + + | Diagnosis | + + | Hepatic cirrhosis, unspecified hepatic cirrhosis type, unspecified whether ascites | | present (HCC) | + + | Type 2 diabetes mellitus without complication, without long-term current use of | | insulin (HCC) | + + documented in this encounter
--- OUTSIDE RECORDS SUMMARY | ~2019-09-09 | XMS | Encounter Summary ---
Demographics + + + | Address | [address] | | | [place] [address] | + + + | Home Phone | | + + + | Preferred Language | Unknown | + + + | Marital Status | | + + + | Sabianist Affiliation | NON | + + + | Race | White | + + + | Ethnic Group | Not or | + + + Author + + + | Author | [facility] | + + + | Organization | [facility] | + + + | Address | Unknown | + + + | Phone | Unavailable | + + + Support + + +---------+ + | Name | Relationship | Address | Phone | + + +---------+ + | Abhi Justice | ECON | Unknown | | + + +---------+ + Care Team Providers + +------+ + | Care Social Media Specialist Name | Role | Phone | + +------+ + | Christofer Holguin NP | PCP | | + +------+ + Reason for Referral Consultation (Routine) +--------+--------+ + + + + | Status | Reason | Specialty | Diagnoses / | Referred By | Referred To | | | | | Procedures | Contact | Contact | +--------+--------+ + + + + | Closed | | Hematology & | Diagnoses | Samira, | Hem Faculty | | | | Oncology | Hepatic | Eva Webb, | Chh2 1956 | | | | | cirrhosis, | PA-C [address] | | | | | unspecified | [address] | Mailcode: | | | | | hepatic | [facility] | [facility] | | | | | cirrhosis | Rd | Health and | | | | | type, | [place], [place] | Healing, | | | | | unspecified | [address] | [address] | | | | | whether | Phone: | [place], [place] | | | | | ascites | [phone] | [address] | | | | | present | Fax: | Phone: | | | | | ([facility]) | [phone] | [phone] | | | | | Procedures | | Fax: | | | | | CONSULT TO | | [phone] | | | | | HEMATOLOGY / | | | | | | | ONCOLOGY | | | +--------+--------+ + + + + Encounter Details +--------+ + + + + | Date | Type | Department | Care Team | Description | +--------+ + + + + | 07/16/ | MyChart | Digestive Health | Eva Hogan, | RE: Blood Thinners? | | 2018 | Encounter | [facility] [address] | | | | | [address] | [address] | | | | | Mailcode: OC8D | [facility] [place] | | | | | [facility] | [address] | | | | | and Healing, | [phone] | | | | | [address] | | | | | | [place], [place] | | | | | | [address] | | | | | | [phone] | | | +--------+ + + + [...] Rd | | | | | | [place], [place] | | | | | | [address] | | | | | | [phone] | | | | | | | | +--------+ + + + + | 09/22/ | Hospital | | Carroll Sosa MD | | | 2018 | Encounter | | [address] | | | | | | [address], | | | | | | [place] [address] | | | | | | [phone] | | | | | | | | +--------+ + + + + | 09/22/ | Appointment | Procedural Care Unit | | | | 2018 | | | | | +--------+ + + + + | 09/22/ | Appointment | Gastroenterology | Carroll Sosa MD | | | 2018 | | | [address] | | | | | | [address], | | | | | | [place] [address] | | | | | | [phone] | | | | | | | | +--------+ + + + + documented as of this encounter Visit Diagnoses + + | Diagnosis | + + | Hepatic cirrhosis, unspecified hepatic cirrhosis type, unspecified whether ascites | | present (HCC) - Primary | + + documented in this encounter"
--- OUTSIDE RECORDS SUMMARY | ~2019-09-09 | XMS | Encounter Summary ---
Demographics + + + | Address | [address] | | | [place] [address] | + + + | Home Phone | | + + + | Preferred Language | Unknown | + + + | Marital Status | | + + + | Adventist Affiliation | NON | + + + | Race | White | + + + | Ethnic Group | Not or | + + + Author + + + | Author | [facility] | + + + | Organization | [facility] | + + + | Address | Unknown | + + + | Phone | Unavailable | + + + Support + + +---------+ + | Name | Relationship | Address | Phone | + + +---------+ + | Abhi Justice | ECON | Unknown | | + + +---------+ + Care Team Providers + +------+ + | Care Doughnut Batter Mixer Name | Role | Phone | + +------+ + | Christofer Holguin NP | PCP | | + +------+ + Encounter Details +--------+ + + + + | Date | Type | Department | Care Team | Description | +--------+ + + + + | 03/29/ | Telephone | [facility] | Eva Hogan, | | | 2019 | | [place] [address] [address] | [address] | | | | | [address] | [address] | | | | | Mailcode: OC8D | [place], [place] | | | | | [facility] | [address] | | | | | [address], | [phone] | | | | | [address] | | | | | | [place], [place] | | | | | | [address] | | | | | | [phone] | | | +--------+ + + + [...] Rd | | | | | | [place], [place] | | | | | | [address] | | | | | | [phone] | | | | | | | | +--------+ + + + + | 09/22/ | Hospital | | Carroll Sosa MD | | | 2018 | Encounter | | [address] | | | | | | [address], | | | | | | [place] [address] | | | | | | [phone] | | | | | | | | +--------+ + + + + | 09/22/ | Appointment | Procedural Care Unit | | | | 2018 | | | | | +--------+ + + + + | 09/22/ | Appointment | Gastroenterology | Carroll Sosa MD | | | 2019 | | | [address] | | | | | | [address], | | | | | | [place] [address] | | | | | | [phone] | | | | | | | | +--------+ + + + + + +---------+--------+ + + | Name | Type | Priori | Associated Diagnoses | Order Schedule | | | | ty | | | + +---------+--------+ + + | CBC, WITH | Lab | Routin | Liver cirrhosis | Expected: 04/12/2019 | | DIFFERENTIAL | | e | secondary to FISH | (Approximate), | | | | | (HCC) | Expires: 05/12/2020 | + +---------+--------+ + + | INR | Lab | Routin | Liver cirrhosis | Expected: 04/12/2019 | | | | e | secondary to FISH | (Approximate), | | | | | (HCC) | Expires: 05/12/2020 | + +---------+--------+ + + | COMPLETE METABOLIC | Lab | Routin | Liver cirrhosis | Expected: 04/12/2019 | | SET | | e | secondary to FISH | (Approximate), | | (NA,K,CL,CO2,BUN,CRE | | | (HCC) | Expires: 05/12/2020 | | AT,GLUC,CA,AST,ALT,B | | | | | | CASSIA TOTAL,ALK | | | | | | PHOS,ALB,PROT TOTAL) | | | | | + +---------+--------+ + + | ALPHA-FETOPROTEIN | Lab | Routin | Liver cirrhosis | Expected: 04/12/2019 | | TUMOR MARKER, SERUM | | e | secondary to FISH | (Approximate), | | | | | (HCC) | Expires: 05/12/2020 | + +---------+--------+ + + | US ABDOMEN COMP W/ | Imaging | Routin | Liver cirrhosis | Expected: | | DOPPLER | | e | secondary to FISH | 08/10/2019, Expires: | | | | | (HCC) | 05/12/2020 | + +---------+--------+ + + | CBC ONLY | Lab | Routin | Liver cirrhosis | Expected: 04/27/2019 | | | | e | secondary to FISH | (Approximate), | | | | | (HCC) | Expires: 05/27/2020 | + +---------+--------+ + + | COMPLETE METABOLIC | Lab | Routin | Liver cirrhosis | Expected: 04/27/2019 | | SET | | e | secondary to FISH | (Approximate), | | (NA,K,CL,CO2,BUN,CRE | | | (HCC) | Expires: 05/27/2020 | | AT,GLUC,CA,AST,ALT,B | | | | | | CASSIA TOTAL,ALK | | | | | | PHOS,ALB,PROT TOTAL) | | | | | + +---------+--------+ + + | INR | Lab | Routin | Liver cirrhosis | Expected: 04/27/2019 | | | | e | secondary to FISH | (Approximate), | | | | | (HCC) | Expires: 05/27/2020 | + +---------+--------+ + + | ALPHA-FETOPROTEIN | Lab | Routin | Liver cirrhosis | Expected: 04/27/2019 | | TUMOR MARKER, SERUM | | e | secondary to FISH | (Approximate), | | | | | (HCC) | Expires: 05/27/2020 | + +---------+--------+ + + documented as of this encounter Procedures + +--------+ + + + | Procedure Name | Priori | Date/Time | Associated Diagnosis | Comments | | | ty | | | | + +--------+ + + + | INR | Routin | 04/16/2019 | | Results for this | | | e | | | procedure are in the | | | | | | results section. | + +--------+ + + + | COMPLETE METABOLIC | Routin | 04/16/2019 | | Results for this | | SET | e | | | procedure are in the | | (NA,K,CL,CO2,BUN,CRE | | | | results section. | | AT,GLUC,CA,AST,ALT,B | | | | | | CASSIA TOTAL,ALK | | | | | | PHOS,ALB,PROT TOTAL) | | | | | + +--------+ + + + | CBC ONLY | Routin | 04/16/2019 | | Results for this | | | e | | | procedure are in the | | | | | | results section. | + +--------+ + + + documented in this encounter Results INR (04/16/2019) + +-------+ + + + | Component | Value | Ref Range | Performed | Pathologist | | | | | At | Signature | + +-------+ + + + | INR | 1.0 | INR | [facility] | | | | | | LAB - | | | | | | [place] | | + +-------+ + + + + + | Specimen | + + | Blood - Blood | | (substance) | + + + + + + + | Performing | Address | City/State/Zipcode | Phone Number | | Organization | | | | + + + + + | [facility] - | [address] | [place], [place] | [phone] | | [place] | | | | + + + + + COMPLETE METABOLIC SET (NA,K,CL,CO2,BUN,CREAT,GLUC,CA,AST,ALT,BILI TOTAL,ALK PHOS,ALB,PROT TOTAL) (04/16/2019) + +---------+ + + + | Component | Value | Ref Range | Performed | Pathologist | | | | | At | Signature | + +---------+ + + + | GLUCOSE, | 369 (H) | mg/dL | [facility] | | | PLASMA | | | LAB - | | | (LAB) | | | [place] | | + +---------+ + + + | BUN, PLASMA | 10 | mg/dL | [facility] | | | (LAB) | | | LAB - | | | | | | [place] | | + +---------+ + + + | CREATININE | 0.65 | mg/dL | [facility] | | | PLASMA | | | LAB - | | | (LAB) | | | [place] | | + +---------+ + + + | ALBUMIN, | 3.8 | g/dL | [facility] | | | PLASMA | | | LAB - | | | (LAB) | | | [place] | | + +---------+ + + + | BILIRUBIN | 1.6 (H) | Transcutaneous | [facility] | | | TOTAL | | Bilirubinometer | LAB - | | | | | | [place] | | + +---------+ + + + | ALK PHOS | 76 | U/L | [facility] | | | | | | LAB - | | | | | | [place] | | + +---------+ + + + | AST(SGOT) | 48 (H) | U/L | [facility] | | | | | | LAB - | | | | | | [place] | | + +---------+ + + + | SODIUM, | 137 | mmol/L | [facility] | | | PLASMA | | | LAB - | | | (LAB) | | | [place] | | + +---------+ + + + | POTASSIUM, | 3.5 (L) | mmol/L | [facility] | | | PLASMA | | | LAB - | | | (LAB) | | | [place] | | + +---------+ + + + | ALT (SGPT) | 24 | U/L | [facility] | | | [...] - | [address] | [place] | [phone] | | [place] | | | | + + + + + CBC ONLY (04/16/2019) + +---------+ + + + | Component | Value | Ref Range | Performed | Pathologist | | | | | At | Signature | + +---------+ + + + | WHITE CELL | 4.9 | K/cu mm | [facility] | | | COUNT | | | LAB - | | | | | | [place] | | + +---------+ + + + | RED CELL | 4.26 | M/cu mm | [facility] | | | COUNT | | | LAB - | | | | | | [place] | | + +---------+ + + + | HEMOGLOBIN | 13.3 | g/dL | [facility] | | | | | | LAB - | | | | | | [place] | | + +---------+ + + + | HEMATOCRIT | 38.5 | % | [facility] | | | | | | LAB - | | | | | | [place] | | + +---------+ + + + | PLATELET | 124 (L) | K/cu mm | [facility] | [...] + + | [facility] - | [address] | [place] | [phone] | | [place] | | | | + + + + + documented in this encounter Visit Diagnoses + + | Diagnosis | + + | 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
--- OUTSIDE RECORDS SUMMARY | ~2019-09-09 | XMS | Encounter Summary ---
Demographics + + + | Address | [address] | | | [place] [address] | + + + | Home Phone | | + + + | Preferred Language | Unknown | + + + | Marital Status | | + + + | Episcopal Affiliation | NON | + + + | Race | White | + + + | Ethnic Group | Not or | + + + Author + + + | Author | [facility] | + + + | Organization | [facility] | + + + | Address | Unknown | + + + | Phone | Unavailable | + + + Support + + +---------+ + | Name | Relationship | Address | Phone | + + +---------+ + | Abhi Justice | ECON | Unknown | | + + +---------+ + Care Team Providers + +------+ + | Care Thread Twister Name | Role | Phone | + +------+ + | Christofer Holguin NP | PCP | | + +------+ + Encounter Details +--------+ + + + + | Date | Type | Department | Care Team | Description | +--------+ + + + + | 08/09/ | MyChart | Digestive Health | Eva Hogan, | RE: Low grade fever | | 2018 | Encounter | Center at [facility] [address] | [address] | | | | | [address] | [address] | | | | | Mailcode: OC8D | [place], [place] | | | | | [facility] | [address] | | | | | and Healing, | [phone] | | | | | [address] | | | | | | [place], [place] | | | | | | [address] | | | | | | [phone] | | | +--------+ + + + [...] | 2018 | Visit | | [address] | | | | | | [address] | | | | | | [place], [place] | | | | | | [address] | | | | | | [phone] | | | | | | | | +--------+ + + + + | 09/22/ | Hospital | | Carroll Sosa MD | | | 2018 | Encounter | | [address] | | | | | | [address], | | | | | | [place] [address] | | | | | | [phone] | | | | | | | | +--------+ + + + + | 09/22/ | Appointment | Procedural Care Unit | | | | 2018 | | | | | +--------+ + + + + | 09/22/ | Appointment | Gastroenterology | Carroll Sosa MD | | | 2018 | | | [address] | | | | | | [address] [place] [address] | | | | | | [place] [address] | | | | | | [phone] | | | | | | | | +--------+ + + + + documented as of this encounter Visit Diagnoses Not on filedocumented in this encounter"
--- OUTSIDE RECORDS SUMMARY | ~2019-09-09 | XMS | Encounter Summary ---
Demographics + + + | Address | [address] | | | [place] [address] | + + + | Home Phone [...] + + + | Author | [facility] | + + + | Organization | [facility] | + + + | Address | Unknown | + + + | Phone | Unavailable | + + + Support + + +---------+ + | Name | Relationship | Address | Phone | + + +---------+ + | Abhi Justice | ECON | Unknown | | + + +---------+ + Care Team Providers + +------+ + | Care Fisheries Technical Officer Name | Role | Phone | + +------+ + | Christofer Holguin NP | PCP | | + +------+ + Encounter Details +--------+------+ + + + | Date | Type | Department | Care Team | Description | +--------+------+ + + + | 06/12/ | Lab | Laboratory at [facility] | | Hepatic cirrhosis, | | 2018 | | [address] | | unspecified hepatic | | | | [place], [place] | | cirrhosis type, | | | | [address] | | unspecified whether | | | | [phone] | | ascites present | | | [...] Rd | | | | | | [place] | | | | | | [address] | | | | | | [phone] | | | | | | | | +--------+ + + + + | 09/22/ | Hospital | | Carroll Sosa MD | | | 2019 | Encounter | | [address] | | | | | | [address] [place], | | | | | | [place] [address] | | | | | | [phone] | | | | | | | [...] | | | | | [address] [place], | | | | | | [place] [address] | | | | | | [phone] | | | | | | | [...] | + +--------+ + + + | WET MIXER AB | Routin | 06/12/2018 | Hepatic [...] test | | | | | | [RIMA]). Some patients | | | | | [...] | | | | | | [place], [place] [address] | | | | | | [phone].aruplab. | | | | | | Marcus [...] [facility] | [address] | [place], [place] | | | [facility] | | [address] | | + + + + + [...] by | | | | | | [facility],[address] | | | | | | [address], [facility],[place] | | | | | | [address] | | | | | | [phone].Billowbylab. | | | | | | Marcus [...] [facility] | [address] | [place], [place] | | | [facility] | | [address] | | + + + + + [...] by | | | | | | [facility],[address] | | | | | | [place]ortencia Alatorre, [facility],[place] | | | | | | [address] | | | | | | [phone].Billowbylab. | | | | | | Marcus [...] [facility] | [address] | [place], [place] | | | [facility] | | [address] | | + + + + + [...] | | | | | | Laboratories,[address] [address] | | | | | | [place], [facility] [address] | | | | | | [phone].[email or web address]. | | | | | | Marcus [...] [facility] | [address] | [place], [place] | | | [facility] | | [address] | | + + + + + WET MIXER AB (06/12/2018 9:23 AM PDT) + + + + + + | Component | Value | Ref Range | Performed | Pathologist | | | | | At | Signature | + + + + + + | PINZON/WET MIXER | 0Comment: INTERPRETIVE | 0 - 40 [...] | | | | | | Positive WET MIXER antibody is | | | | | [...] negative; | | | | | | WET MIXER is also present in | | | | | | 20-30 percent of | | | | | | systemic lupus | | | | | | erythematosus and 15-25 | | | | | | percent of progressive | | | | | | systemic sclerosis. WET MIXER | | | | | | antigens [...] | | | | | | interpreting WET MIXER | | | | | | results.Performed by | | | | | | [facility],[address] | | | | | | [place] | | | | | | [address] | | | | | | [phone].Billowbylab. | | | | | | Marcus [...] [facility] | [address] | [place], [place] | | | [facility] | | [address] | | + + + + + [...] INTFC | | | | Antigen Antibodies (WET MIXER, | | | | | | [place], [...] | | | | | | [place], [facility] [address] | | | | | | [phone].[employer]. | | | | | | Marcus [...] [facility] | [address] | [place], [place] | | | [facility] | | [address] | | + + + + + [...] | + + + + + | [facility] [facility] | [address] | [place] [address] | | | SERVICES, CENTER FOR | [...] | + + + + + | [facility] | [address] | [place] [address] | | | SERVICES, CORE | PARK [...] [facility] | [address] | [place] [address] | | | RICHARD PIZARRO | [place] [...] [facility] | [address] | [place] [address] | | | SERVICES, CORE | PARK [...] [facility] | [address] | [place] [address] | | | SERVICES, CORE | PARK [...] | | | LABORATORY | | | SAUDI ARABIAN | | | SERVICES, | | | [...] | + + + + + | [facility] | [address] | [place] [address] | | | SERVICES, CORE | [place] [...] [facility] | [address] | [place] [address] | | | SERVICES, CORE | PARK [...] | + + + + + | [employer] | [address] | [place] [address] | | | JUAREZ, RICHARD | [place]LEY [...] | | | | | | | KRYSTIAN 0.0 - | | | | | [...] | | | | | Hortencia Alatorre, [facility],[place] | | | | | | [address] | | | | | | [phone].aruplab. | | | | | | [facility]Marcus MD, | | | | | | [...] + + | [facility] | [address] | [place], [place] | | | [facility] | | [address] | | + + + + + [...] | | | | | SARD.Performed by [facility] | | | | | | [facility] [place] [facility],[address] [address] | | | | | | [place], [facility] [place] [address] | | | | | | [phone].Billowbylab. | | | | | | Marcus [...] [facility] | [address] | [place], [place] | | | [facility] | | [address] | | + + + + + [...] + | [facility] | [address] | [place] [address] | | | [place] | | | [...] + | [facility] - | [address] | [place] [address] | | | [place] | | | | + + + [...] | | | this test in the [facility] | | | | | | Laboratory Test | | | | | | Directory | | | | | | ([employer]Generations).Performed | | | | | | by [facility],[address] | | | | | | [place]ortencia Alatorre, [facility],[place] | | | | | | [address] | | | | | | [phone].[employer]. | | | | | | com, [...] [facility] | [address] | [place], [place] | | | [facility] | | [address] | | + + + + + [...] - [facility] | | | | by [facility],[address] | | | | | | Hortencia Alatorre, [facility],[place] | | | | | | [address] | | | | | | [phone].MyCityWaylab. | | | | | | [facility]Marcus MD, | | | | | | Lab. Director | | | | + + + + + + + + | Specimen | + + | Blood - Blood | | (substance) | + + + + + + + | Performing | Address | City/State[facility] | Phone Number | | Organization | | | | + + + + + | [facility] | [address] | [place], [place] | | | [facility] | | [address] | | + + + + + [...]
--- OUTSIDE RECORDS SUMMARY | ~2019-09-09 | XMS | Encounter Summary ---
Demographics + + + | Address | [address] | | | [place] [address] | + + + | Home Phone | | + + + | Preferred Language | Unknown | + + + | Marital Status | | + + + | Mormonism Affiliation | NON | + + + | Race | White | + + + | Ethnic Group | Not or | + + + Author + + + | Author | [facility] | + + + | Organization | [facility] | + + + | Address | Unknown | + + + | Phone | Unavailable | + + + Support + + +---------+ + | Name | Relationship | Address | Phone | + + +---------+ + | Abhi Justice | ECON | Unknown | | + + +---------+ + Care Team Providers + +------+ + | Care Vp Ancillary Name | Role | Phone | + [...] Outside Records | | 2018 | | [place] [address] | PA-C [address] | Received | | | | [address] | [address] | | | | | Mailcode: OC8D | [place], [place] | | | | | [facility] | [address] | | | | | and [place], | [phone] | | | | | [address] | | | | | | [place], [place] | | | | | | [address] | | | | | | [phone] | | | +--------+ + + + [...] | 2019 | Visit | | [address] | | | | | | [address] | | | | | | [place], [place] | | | | | | [address] | | | | | | [phone] | | | | | | | | +--------+ + + + + | 09/22/ | Hospital | | Carroll Sosa MD | | | 2018 | Encounter | | [address] | | | | | | [address] [place], | | | | | | [place] [address] | | | | | | [phone] | | | | | | | [...] | | | | | [address] [place], | | | | | | [place] [address] | | | | | | [phone] | | | | | | | | +--------+ + + + + documented as of this encounter Visit Diagnoses Not on filedocumented in this encounter"
--- OUTSIDE RECORDS SUMMARY | ~2019-09-09 | XMS | Encounter Summary ---
Demographics + + + | Address | [address] | | | [place] [address] | + + + | Home Phone | | + + + | Preferred Language | Unknown | + + + | Marital Status | | + + + | Hoahaoism Affiliation | NON | + + + [...] Team Providers + +------+ + | Care Ballast Inspector Name | Role | Phone | + [...] | | 2019 | | Center at [facility] [address] | PA-C [address] | | | | | [address] | [address] | | | | | Mailcode: OC8D | [place], [place] | | | | | [facility] | [address] | | | | | and [address], | [phone] | | | | | [facility] [address] | | | | | | [place], [place] | | | | | | [address] | | | | | | [phone] | | | +--------+ + + + [...] | 2019 | Visit | | [address] | | | | | | [address] | | | | | | [place], [place] | | | | | | [address] | | | | | | [phone] | | | | | | | | +--------+ + + + + | 09/22/ | Hospital | | Carroll Sosa MD | | | 2018 | Encounter | | [address] | | | | | | [address] [place], | | | | | | [place] [address] | | | | | | [phone] | | | | | | | [...] | | | | | [address] [place], | | | | | | [place] [address] | | | | | | [phone] | | | | | | | | +--------+ + + + + documented as of this encounter Visit Diagnoses Not on filedocumented in this encounter"
--- OUTSIDE RECORDS SUMMARY | ~2019-09-09 | XMS | Encounter Summary ---
Demographics + + + | Address | [address] | | | [place] [address] | + + + | Home Phone | | + + + | Preferred Language | Unknown | + + + | Marital Status | | + + + | Taoism Affiliation | NON | + + + | Race | White | + + + | Ethnic Group | Not or | + + + Author + + + | Author | [facility] | + + + | Organization | [facility] | + + + | Address | Unknown | + + + | Phone | Unavailable | + + + Support + + +---------+ + | Name | Relationship | Address | Phone | + + +---------+ + | Abhi Justice | ECON | Unknown | | + + +---------+ + Care Team Providers + +------+ + | Care Studio Technician Video Operator Name | Role | Phone | + +------+ + | Unknown | PCP | Unavailable | + +------+ + Encounter Details +--------+ + + + + | Date | Type | Department | Care Team | Description | +--------+ + + + + | 04/14/ | Hospital | Registration HOV | | | | 2018 | Encounter | [address] | | | | | | [place], | | | | | | [place] [address] | | | +--------+ + + + [...] Rd | | | | | | [place], [place] | | | | | | [address] | | | | | | [phone] | | | | | | | | +--------+ + + + + | 09/22/ | Hospital | | Carroll Sosa MD | | | 2018 | Encounter | | [address] | | | | | | [address] [place] [address] | | | | | | [place] [address] | | | | | | [phone] | | | | | | | | +--------+ + + + + | 09/22/ | Appointment | Procedural Care Unit | | | | 2018 | | | | | +--------+ + + + + | 09/22/ | Appointment | Gastroenterology | Carroll Sosa MD | | | 2018 | | | [address] | | | | | | [address], | | | | | | [place] [address] | | | | | | [phone] | | | | | | | | +--------+ + + + + documented as of this encounter Visit Diagnoses Not on filedocumented in this encounter"
--- OUTSIDE RECORDS SUMMARY | ~2019-09-09 | XMS | Encounter Summary ---
Demographics + + + | Address | [address] | | | [place] [address] | + + + | Home Phone | | + + + | Preferred Language | Unknown | + + + | Marital Status | | + + + | Baptist Affiliation | NON | + + + | Race | White | + + + | Ethnic Group | Not or | + + + Author + + + | Author | [facility] | + + + | Organization | [facility] | + + + | Address | Unknown | + + + | Phone | Unavailable | + + + Support + + +---------+ + | Name | Relationship | Address | Phone | + + +---------+ + | Abhi Justice | ECON | Unknown | | + + +---------+ + Care Team Providers + +------+ + | Care Medical Supervisor Name | Role | Phone | + [...] | | | | | [place], | | | | | | [place] [address] | | | +--------+ + + + [...] Rd | | | | | | [place], [place] | | | | | | [address] | | | | | | [phone] | | | | | | | | +--------+ + + + + | 09/22/ | Hospital | | Carroll Sosa MD | | | 2018 | Encounter | | [address] | | | | | | [place] [address] [place] [address] | | | | | | [place] [address] | | | | | | [phone] | | | | | | | | +--------+ + + + + | 09/22/ | Appointment | Procedural Care Unit | | | | 2018 | | | | | +--------+ + + + + | 09/22/ | Appointment | Gastroenterology | Carroll Sosa MD | | | 2018 | | | [address] | | | | | | [address], | | | | | | [place] [address] | | | | | | [phone] | | | | | | | | +--------+ + + + + documented as of this encounter Visit Diagnoses Not on filedocumented in this encounter"
--- OUTSIDE RECORDS SUMMARY | ~2019-09-09 | XMS | Encounter Summary ---
Demographics + + + | Address | [address] | | | [place] [address] | + + + | Home Phone | | + + + | Preferred Language | Unknown | + + + | Marital Status | | + + + | Congregation Affiliation | NON | + + + [...] Team Providers + +------+ + | Care Junior Accountant Name | Role | Phone | + +------+ + | Christofer Holguin NP | PCP | | + +------+ + Reason for Referral PROC - Dept/Practice Procedure (Routine) + +--------+ + + + + | Status | Reason | Specialty | Diagnoses / | Referred By | Referred To | | | | | Procedures | Contact | Contact | + +--------+ + + + + | Authorized | | Gastroenterol | Diagnoses | Hogan, | Gas Endo | | | | ogy | Liver | Eva Webb, | [address] | | | | | cirrhosis | PA-C [address] | | | | | secondary to | [address] | Mailcode: | | | | | FISH (HCC) | [address] | [facility] | | | | | Procedures | Rd | for Health | | | | | CONSULT TO | [place], [place] | and Healing, | | | | | GI PROCEDURE | [address] | [address] | | | | | UNIT: EGD | Phone: | [place], [place] | | | | | | [phone] | [address] | | | | | | Fax: | Phone: | | | | | | [phone] | [phone] | | | | | | | Fax: | | | | | | | [phone] | + +--------+ + + + + Reason for Visit +--------+ + | Reason | Comments | +--------+ + | Pain | | +--------+ + Encounter Details +--------+ + + + + | Date | Type | Department | Care Team | Description | +--------+ + + + + | 05/24/ | Telephone | Digestive Health | Eva Hogan, | Pain | | 2018 | | [place] [address] [address] | PA-C [address] | | | | | [address] | [address] | | | | | Mailcode: OC8D | [place], [place] | | | | | [facility] | [address] | | | | | and [address], | [phone] | | | | | [address] | | | | | | [place], [place] | | | | | | [address] | | | | | | [phone] | | | +--------+ + + + [...] | | 2018 | Visit | | [address] | | | | | | [address] | | | | | | [place], [place] | | | | | | [address] | | | | | | [phone] | | | | | | | | +--------+ + + + + | 09/22/ | Hospital | | Carroll Sosa MD | | | 2018 | Encounter | | [address] | | | | | | [address] [facility], | | | | | | [place] [address] | | | | | | [phone] | | | | | | | [...] | | | | | [address] [place], | | | | | | [place] [address] | | | | | | [phone] | | | | | | | | +--------+ + + + + + +------+--------+ + + | Name | Type | Priori | Associated Diagnoses | Order Schedule | | | | ty | | | + +------+--------+ + + | INR | Lab | Routin | Liver cirrhosis | Expected: 05/27/2019 | | | | e | secondary to FISH | (Approximate), | | | | | (HCC) | Expires: 06/27/2020 | + +------+--------+ + + | ALPHA-FETOPROTEIN | Lab | Routin | Liver cirrhosis | Expected: 05/27/2019 | | TUMOR MARKER, SERUM | | e | secondary to FISH | (Approximate), | | | | | (HCC) | Expires: 06/27/2020 | + +------+--------+ + + | COMPLETE METABOLIC | Lab | Routin | Liver cirrhosis | Expected: 05/27/2019 | | SET | | e | secondary to FISH | (Approximate), | | (NA,K,CL,CO2,BUN,CRE | | | (HCC) | Expires: 06/27/2020 | | AT,GLUC,CA,AST,ALT,B | | | | | | CASSIA TOTAL,ALK | | | | | | PHOS,ALB,PROT TOTAL) | | | | | + +------+--------+ + + | CBC, WITH | Lab | Routin | Liver cirrhosis | Expected: 05/27/2019 | | DIFFERENTIAL | | e | secondary to FISH | (Approximate), | | | | | (HCC) | Expires: 06/27/2020 | + +------+--------+ + + documented as of this encounter Visit Diagnoses + + | Diagnosis | + + | 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
--- OUTSIDE RECORDS SUMMARY | ~2019-09-09 | XMS | Encounter Summary ---
Demographics + + + | Address | [address] | | | [place] [address] | + + + | Home Phone | | + + + | Preferred Language | Unknown | + + + | Marital Status | | + + + | Episcopalian Affiliation | NON | + + + | Race | White | + + + | Ethnic Group | Not or | + + + Author + + + | Author | [facility] | + + + | Organization | [facility] | + + + | Address | Unknown | + + + | Phone | Unavailable | + + + Support + + +---------+ + | Name | Relationship | Address | Phone | + + +---------+ + | Abhi Justice | ECON | Unknown | | + + +---------+ + Care Team Providers + +------+ + | Care Executive Office Manager Name | Role | Phone | + +------+ + | Christofer Holguin NP | PCP | | + +------+ + Reason for Visit + + + | Reason | Comments | + + + | Medical Records | | | Review | | + + + Encounter Details +--------+ + + + + | Date | Type | Department | Care Team | Description | +--------+ + + + + | 01/12/ | Abstract | Digestive Health | Eva Hogan, | Medical Records | | 2019 | | [place] [address] [address] | [address] | Review | | | | [address] | [address] | | | | | Mailcode: OC8D | [place], [place] | | | | | [facility] | [address] | | | | | and [place], | [phone] | | | | | [address] | | | | | | [place], [place] | | | | | | [address] | | | | | | [phone] | | | +--------+ + + + [...] | 2019 | Visit | | [address] | | | | | | [address] | | | | | | [place], [place] | | | | | | [address] | | | | | | [phone] | | | | | | | | +--------+ + + + + | 09/22/ | Hospital | | Carroll Sosa MD | | | 2018 | Encounter | | [address] | | | | | | [address] [place], | | | | | | [place] [address] | | | | | | [phone] | | | | | | | [...] | | | | | [address] [place], | | | | | | [place] [address] | | | | | | [phone] | | | | | | | | +--------+ + + + + documented as of this encounter Visit Diagnoses Not on filedocumented in this encounter"
--- OUTSIDE RECORDS SUMMARY | ~2019-09-09 | XMS | Encounter Summary ---
Demographics + + + | Address | [address] | | | [place] [address] | + + + | Home Phone | | + + + | Preferred Language | Unknown | + + + | Marital Status | | + + + | Anabaptism Affiliation | NON | + + + | Race | White | + + + | Ethnic Group | Not or | + + + Author + + + | Author | [facility] | + + + | Organization | [facility] | + + + | Address | Unknown | + + + | Phone | Unavailable | + + + Support + + +---------+ + | Name | Relationship | Address | Phone | + + +---------+ + | Abhi Justice | ECON | Unknown | | + + +---------+ + Care Team Providers + +------+ + | Care Roving Tester Laboratory Name | Role | Phone | + +------+ + | Christofer Holguin NP | PCP | | + +------+ + Encounter Details +--------+ + + + + | Date | Type | Department | Care Team | Description | +--------+ + + + + | 03/25/ | Abstract | Digestive Health | Eva Hogan, | | | 2019 | | [place] [address] [address] | [address] | | | | | [address] | [address] | | | | | Mailcode: OC8D | [place], [place] | | | | | [facility] | [address] | | | | | and [address], | [phone] | | | | | [address] | | | | | | [place], [place] | | | | | | [address] | | | | | | [phone] | | | +--------+ + + + [...] | | | | | | [address] | | | | | | [place], [place] | | | | | | [address] | | | | | | [phone] | | | | | | | | +--------+ + + + + | 09/22/ | Hospital | | Carroll Sosa MD | | | 2018 | Encounter | | [address] | | | | | | [address], | | | | | | [place] [address] | | | | | | [phone] | | | | | | | | +--------+ + + + + | 09/22/ | Appointment | Procedural Care Unit | | | | 2018 | | | | | +--------+ + + + + | 09/22/ | Appointment | Gastroenterology | Carroll Sosa MD | | | 2018 | | | [address] | | | | | | [address], | | | | | | [place] [address] | | | | | | [phone] | | | | | | | | +--------+ + + + + documented as of this encounter Visit Diagnoses Not on filedocumented in this encounter"
--- OUTSIDE RECORDS SUMMARY | ~2019-09-09 | XMS | Encounter Summary ---
Demographics + + + | Address | [address] | | | [place] [address] | + + + | Home Phone | | + + + | Preferred Language | Unknown | + + + | Marital Status | | + + + | Restoration Affiliation | NON | + + + [...] Team Providers + +------+ + | Care Sound Editor Name | Role | Phone | + +------+ + | Christofer Holguin NP | PCP | | + +------+ + Encounter Details +--------+ + + + + | Date | Type | Department | Care Team | Description | +--------+ + + + + | 06/12/ | Inside | [facility] | Eva Hogan, | | | 2018 | Referral | [facility] [address] | PA-C [address] | | | | Order | [address] Mailcode: | [address] | | | | | OC[facility]L Center for | [facility] [place] | | | | | Health and Healing, | [address] | | | | | [address] | [phone] | | | | | [place], [place] | | | | | | [address] | | | | | | [phone] | | | +--------+ + + + [...] Rd | | | | | | [place], [place] | | | | | | [address] | | | | | | [phone] | | | | | | | | +--------+ + + + + | 09/22/ | Hospital | | Carroll Sosa MD | | | 2018 | Encounter | | [address] | | | | | | [facility] [place], | | | | | | [place] [address] | | | | | | [phone] | | | | | | | | +--------+ + + + + | 09/22/ | Appointment | Procedural Care Unit | | | | 2018 | | | | | +--------+ + + + + | 09/22/ | Appointment | Gastroenterology | Carroll Sosa MD | | | 2018 | | | [address] | | | | | | [address], | | | | | | [place] [address] | | | | | | [phone] | | | | | | | [...]
--- OUTSIDE RECORDS SUMMARY | ~2019-09-09 | XMS | Encounter Summary ---
Demographics + + + | Address | [address] | | | [place] [address] | + + + | Home Phone | | + + + | Preferred Language | Unknown | + + + | Marital Status | | + + + | Jehovah'S Witness Affiliation | NON | + + + [...] Team Providers + +------+ + | Care Aircrewman Name | Role | Phone | + +------+ + | Christofer Holguin NP | PCP | | + +------+ + Encounter Details +--------+ + + + + | Date | Type | Department | Care Team | Description | +--------+ + + + + | 03/25/ | Abstract | Digestive Health | Eva Hogan, | | | 2019 | | [place] [address] [address] | [address] | | | | | [address] | [address] | | | | | Mailcode: OC8D | [place], [place] | | | | | [facility] | [address] | | | | | and [address], | [phone] | | | | | [address] | | | | | | [place], [place] | | | | | | [address] | | | | | | [phone] | | | +--------+ + + + [...] Rd | | | | | | [place], [place] | | | | | | [address] | | | | | | [phone] | | | | | | | | +--------+ + + + + | 09/22/ | Hospital | | Carroll Sosa MD | | | 2018 | Encounter | | [address] | | | | | | [address] [place], | | | | | | [place] [address] | | | | | | [phone] | | | | | | | | +--------+ + + + + | 09/22/ | Appointment | Procedural Care Unit | | | | 2018 | | | | | +--------+ + + + + | 09/22/ | Appointment | Gastroenterology | Carroll Sosa MD | | | 2018 | | | [address] | | | | | | [address], | | | | | | [place] [address] | | | | | | [phone] | | | | | | | | +--------+ + + + + documented as of this encounter Visit Diagnoses Not on filedocumented in this encounter"
--- OUTSIDE RECORDS SUMMARY | ~2019-09-09 | XMS | Encounter Summary ---
Demographics + + + | Address | [address] | | | [place] [address] | + + + | Home Phone | | + + + | Preferred Language | Unknown | + + + | Marital Status | | + + + | Sabianist Affiliation | NON | + + + | Race | White | + + + | Ethnic Group | Not or | + + + Author + + + | Author | [facility] | + + + | Organization | [facility] | + + + | Address | Unknown | + + + | Phone | Unavailable | + + + Support + + +---------+ + | Name | Relationship | Address | Phone | + + +---------+ + | Abhi Justice | ECON | Unknown | | + + +---------+ + Care Team Providers + +------+ + | Care Crew Chief Name | Role | Phone | + [...] Medical Records | | 2019 | | [place] [address] | [address] | Review | | | | [address] | [address] | | | | | Mailcode: OC8D | [place], [place] | | | | | [facility] | [address] | | | | | and [address], | [phone] | | | | | [address] | | | | | | [place], [place] | | | | | | [address] | | | | | | [phone] | | | +--------+ + + + [...] | 2019 | Visit | | [address] | | | | | | [address] | | | | | | [place], [place] | | | | | | [address] | | | | | | [phone] | | | | | | | | +--------+ + + + + | 09/22/ | Hospital | | Carroll Sosa MD | | | 2018 | Encounter | | [address] | | | | | | [address] [place], | | | | | | [place] [address] | | | | | | [phone] | | | | | | | [...] | | | | | [address] [place], | | | | | | [place] [address] | | | | | | [phone] | | | | | | | | +--------+ + + + + documented as of this encounter Visit Diagnoses Not on filedocumented in this encounter"
--- OUTSIDE RECORDS SUMMARY | ~2019-09-09 | XMS | Encounter Summary ---
Demographics + + + | Address | [address] | | | [place] [address] | + + + | Home Phone | | + + + | Preferred Language | Unknown | + + + | Marital Status | | + + + | Nondenominational Affiliation | NON | + + + | Race | White | + + + | Ethnic Group | Not or | + + + Author + + + | Author | [facility] | + + + | Organization | [facility] | + + + | Address | Unknown | + + + | Phone | Unavailable | + + + Support + + +---------+ + | Name | Relationship | Address | Phone | + + +---------+ + | Abhi Justice | ECON | Unknown | | + + +---------+ + Care Team Providers + +------+ + | Care Primary School Teacher Librarian Name | Role | Phone | + +------+ + | Christofer Holguin NP | PCP | | + +------+ + Encounter Details +--------+ + + + + | Date | Type | Department | Care Team | Description | +--------+ + + + + | 08/18/ | Telephone | Digestive Health | Eva Hogan, | | | 2018 | | [place] [address] | [address] | | | | | [address] | [address] | | | | | Mailcode: OC8D | [place], [place] | | | | | [facility] | [address] | | | | | [address], | [phone] | | | | | [address] | | | | | | [place], [place] | | | | | | [address] | | | | | | [phone] | | | +--------+ + + + [...] Rd | | | | | | [place], [place] | | | | | | [address] | | | | | | [phone] | | | | | | | | +--------+ + + + + | 09/22/ | Hospital | | Carroll Sosa MD | | | 2018 | Encounter | | [address] | | | | | | [address], | | | | | | [place] [address] | | | | | | [phone] | | | | | | | | +--------+ + + + + | 09/22/ | Appointment | Procedural Care Unit | | | | 2018 | | | | | +--------+ + + + + | 09/22/ | Appointment | Gastroenterology | Carroll Sosa MD | | | 2018 | | | [address] | | | | | | [address], | | | | | | [place] [address] | | | | | | [phone] | | | | | | | | +--------+ + + + + documented as of this encounter Visit Diagnoses Not on filedocumented in this encounter"
--- OUTSIDE RECORDS SUMMARY | ~2019-09-09 | XMS | Encounter Summary ---
Demographics + + + | Address | [address] | | | [place] [address] | + + + | Home Phone [...] Team Providers + +------+ + | Care First Assistant Manager Name | Role | Phone | [...] | Hepatic | Eva Webb, | [address] | | | | | cirrhosis, | PA[address]C [address] | | | | | unspecified | [address] | Mailcode: | | | | | hepatic | [facility] | [place] [facility] | | | | | cirrhosis | Rd | Health and | | | | | type, | [place], [place] | Healing, | | | | | unspecified | [address] | [address] | | | | | whether | Phone: | [place], [place] | | | | | ascites | [phone] | [address] | | | | | present | Fax: | Phone: | | | | | ([facility]) | [phone] | [phone] | | | | | Procedures | | Fax: | | | | | CONSULT TO | | [phone] | | | | | HEMATOLOGY / [...] Thinners? | | 2018 | Encounter | [place] [facility] [address] | [address] | | | | | [address] | [address] | | | | | Mailcode: OC8D | [facility] [place] | | | | | [facility] | [address] | | | | | and Healing, | [phone] | | | | | [address] | | | | | | [place], [place] | | | | | | [address] | | | | | | [phone] | | | +--------+ + + + [...] Rd | | | | | | [place], [place] | | | | | | [address] | | | | | | [phone] | | | | | | | | +--------+ + + + + | 09/22/ | Hospital | | Carroll Soas MD | | | 2018 | Encounter | | [address] | | | | | | [address], | | | | | | [place] [address] | | | | | | [phone] | | | | | | | | +--------+ + + + + | 09/22/ | Appointment | Procedural Care Unit | | | | 2018 | | | | | +--------+ + + + + | 09/22/ | Appointment | Gastroenterology | Carroll Sosa MD | | | 2018 | | | [address] | | | | | | [address], | | | | | | [place] [address] | | | | | | [phone] | | | | | | | | +--------+ + + + + documented as of this encounter Visit Diagnoses + + | Diagnosis | + + | Hepatic cirrhosis, unspecified hepatic cirrhosis type, unspecified whether ascites | | present (HCC) - Primary | + + documented in this encounter"
--- OUTSIDE RECORDS SUMMARY | ~2019-09-09 | XMS | Encounter Summary ---
Demographics + + + | Address | [address] | | | [place] [address] | + + + | Home Phone | | + + + | Preferred Language | Unknown | + + + | Marital Status | | + + + | Gnosticist Affiliation | NON | + + + | Race | White | + + + | Ethnic Group | Not or | + + + Author + + + | Author | [facility] | + + + | Organization | [facility] | + + + | Address | Unknown | + + + | Phone | Unavailable | + + + Support + + +---------+ + | Name | Relationship | Address | Phone | + + +---------+ + | Abhi Justice | ECON | Unknown | | + + +---------+ + Care Team Providers + +------+ + | Care Plant Sprayer Name | Role | Phone | + +------+ + | Christofer Holguin NP | PCP | | + +------+ + Encounter Details +--------+ + + + + | Date | Type | Department | Care Team | Description | +--------+ + + + + | 06/12/ | Procedure | Radiology/Imaging | | | | 2017 | Pass | Lab at [facility] [address] | | | | | | [address] Mailcode: | | | | | | [address] | | | | | | Health and Healing, | | | | | | [address] | | | | | | [place], [place] | | | | | | [address] | | | | | | [phone] | | | +--------+ + + + [...] Rd | | | | | | [place] | | | | | | [address] | | | | | | [phone] | | | | | | | | +--------+ + + + + | 09/22/ | Hospital | | Carroll Sosa MD | | | 2019 | Encounter | | [address] | | | | | | [address], | | | | | | [place] [address] | | | | | | [phone] | | | | | | | [...] | | | | | [address] [place], | | | | | | [place] [address] | | | | | | [phone] | | | | | | | | +--------+ + + + + documented as of this encounter Visit Diagnoses Not on filedocumented in this encounter"
--- OUTSIDE RECORDS SUMMARY | ~2019-09-09 | XMS | Encounter Summary ---
Demographics + + + | Address | [address] | | | [place] [address] | + + + | Home Phone [...] + + + | Author | [facility] | + + + | Organization | [facility] | + + + | Address | Unknown | + + + | Phone | Unavailable | + + + Support + + +---------+ + | Name | Relationship | Address | Phone | + + +---------+ + | Abhi Justice | ECON | Unknown | | + + +---------+ + Care Team Providers + +------+ + | Care Telegraph Printer Mechanic Name | Role | Phone | + [...] | 2018 | Encounter | Center at [facility] [address] | [address] | | | | | [address] | [address] | | | | | Mailcode: OC8D | [place], [place] | | | | | [facility] | [address] | | | | | and Healing, | [phone] | | | | | [address] | | | | | | [place], [place] | | | | | | [address] | | | | | | [phone] | | | +--------+ + + + [...] | 2018 | Visit | | [address] | | | | | | [address] | | | | | | [place], [place] | | | | | | [address] | | | | | | [phone] | | | | | | | | +--------+ + + + + | 09/22/ | Hospital | | Carroll Sosa MD | | | 2018 | Encounter | | [address] | | | | | | [address], | | | | | | [place] [address] | | | | | | [phone] | | | | | | | | +--------+ + + + + | 09/22/ | Appointment | Procedural Care Unit | | | | 2018 | | | | | +--------+ + + + + | 09/22/ | Appointment | Gastroenterology | Carroll Sosa MD | | | 2018 | | | [address] | | | | | | [address] [place] [address] | | | | | | [place] [address] | | | | | | [phone] | | | | | | | | +--------+ + + + + documented as of this encounter Visit Diagnoses Not on filedocumented in this encounter"
--- OUTSIDE RECORDS SUMMARY | ~2019-09-09 | XMS | Encounter Summary ---
Demographics + + + | Address | [address] | | | [place] [address] | + + + | Home Phone | | + + + | Preferred Language | Unknown | + + + | Marital Status | | + + + | Mu-Ism Affiliation | NON | + + + [...] Team Providers + +------+ + | Care Die Maker Stamping Name | Role | Phone | + [...] Rd | | | | | | [place] | | | | | | [address] | | | +--------+ + + + [...] Rd | | | | | | [place], [place] | | | | | | [address] | | | | | | [phone] | | | | | | | | +--------+ + + + + | 09/22/ | Hospital | | Carroll Sosa MD | | | 2018 | Encounter | | [address] | | | | | | [address], | | | | | | [place] [address] | | | | | | [phone] | | | | | | | | +--------+ + + + + | 09/22/ | Appointment | Procedural Care Unit | | | | 2018 | | | | | +--------+ + + + + | 09/22/ | Appointment | Gastroenterology | Carroll Sosa MD | | | 2019 | | | [address] | | | | | | [address], | | | | | | [place] [address] | | | | | | [phone] | | | | | | | | +--------+ + + + + documented as of this encounter Visit Diagnoses Not on filedocumented in this encounter"
--- OUTSIDE RECORDS SUMMARY | ~2019-09-09 | XMS | Encounter Summary ---
Demographics + + + | Address | [address] | | | [place] [address] | + + + | Home Phone [...] Team Providers + +------+ + | Care Milking Machine Technician Name | Role | Phone | [...] | Liver | Eva Webb, | [address] | | | | | cirrhosis | PA-C [address] | | | | | secondary to | [address] | Mailcode: | | | | | FISH (HCC) | [address] | [facility] | | | | | Procedures | Rd | for Health | | | | | CONSULT TO | [place], [place] | and Healing, | | | | | GI PROCEDURE | [address] | [address] | | | | | UNIT: EGD | Phone: | [place], [place] | | | | | | [phone] | [address] | | | | | | Fax: | Phone: | | | | | | [phone] | [phone] | | | | | | | Fax: | | | | | | | [phone] | + +--------+ + + + + [...] | Pain | | 2018 | | [place] [address] [address] | PA-C [address] | | | | | [address] | [address] | | | | | Mailcode: OC8D | [place], [place] | | | | | [facility] | [address] | | | | | and [address], | [phone] | | | | | [address] | | | | | | [place], [place] | | | | | | [address] | | | | | | [phone] | | | +--------+ + + + [...] | 2018 | Visit | | [address] | | | | | | [address] | | | | | | [place], [place] | | | | | | [address] | | | | | | [phone] | | | | | | | | +--------+ + + + + | 09/22/ | Hospital | | Carroll Sosa MD | | | 2018 | Encounter | | [address] | | | | | | [address] [facility], | | | | | | [place] [address] | | | | | | [phone] | | | | | | | [...] | | | | | [address] [place], | | | | | | [place] [address] | | | | | | [phone] | | | | | | | [...]
--- OUTSIDE RECORDS SUMMARY | ~2019-09-09 | XMS | Encounter Summary ---
Demographics + + + | Address | [address] | | | [place] [address] | + + + | Home Phone | | + + + | Preferred Language | Unknown | + + + | Marital Status | | + + + | Sabianist Affiliation | NON | + + + | Race | White | + + + | Ethnic Group | Not or | + + + Author + + + | Author | [facility] | + + + | Organization | [facility] | + + + | Address | Unknown | + + + | Phone | Unavailable | + + + Support + + +---------+ + | Name | Relationship | Address | Phone | + + +---------+ + | Abhi Justice | ECON | Unknown | | + + +---------+ + Care Team Providers + +------+ + | Care Inspector And Hand Packager Name | Role | Phone | + +------+ + | Christofer Holguin NP | PCP | | + +------+ + Encounter Details +--------+ + + + + | Date | Type | Department | Care Team | Description | +--------+ + + + + | 07/27/ | Telephone | [facility] | Eva Hogan, | | | 2018 | | [place] [address] [address] | [address] | | | | | [address] | [address] | | | | | Mailcode: OC8D | [place], [place] | | | | | [facility] | [address] | | | | | [address], | [phone] | | | | | [address] | | | | | | [place], [place] | | | | | | [address] | | | | | | [phone] | | | +--------+ + + + [...] Rd | | | | | | [place], [place] | | | | | | [address] | | | | | | [phone] | | | | | | | | +--------+ + + + + | 09/22/ | Hospital | | Carroll Sosa MD | | | 2018 | Encounter | | [address] | | | | | | [address], | | | | | | [place] [address] | | | | | | [phone] | | | | | | | | +--------+ + + + + | 09/22/ | Appointment | Procedural Care Unit | | | | 2018 | | | | | +--------+ + + + + | 09/22/ | Appointment | Gastroenterology | Carroll Sosa MD | | | 2018 | | | [address] | | | | | | [address], | | | | | | [place] [address] | | | | | | [phone] | | | | | | | | +--------+ + + + + documented as of this encounter Visit Diagnoses Not on filedocumented in this encounter"
--- OUTSIDE RECORDS SUMMARY | ~2019-09-09 | XMS | Encounter Summary ---
Demographics + + + | Address | [address] | | | [place] [address] | + + + | Home Phone | | + + + | Preferred Language | Unknown | + + + | Marital Status | | + + + | Zoroastrianism Affiliation | NON | + + + [...] Team Providers + +------+ + | Care Energy Sales Consultant Name | Role | Phone | + +------+ + | Christofer Holguin NP | PCP | | + +------+ + Encounter Details +--------+ + + + + | Date | Type | Department | Care Team | Description | +--------+ + + + + | 03/29/ | Telephone | [facility] | Eva Hogan, | | | 2019 | | [place] [address] [address] | [address] | | | | | [address] | [address] | | | | | Mailcode: OC8D | [place], [place] | | | | | [facility] | [address] | | | | | [address], | [phone] | | | | | [address] | | | | | | [place], [place] | | | | | | [address] | | | | | | [phone] | | | +--------+ + + + [...] Rd | | | | | | [place], [place] | | | | | | [address] | | | | | | [phone] | | | | | | | | +--------+ + + + + | 09/22/ | Hospital | | Carroll Sosa MD | | | 2018 | Encounter | | [address] | | | | | | [address], | | | | | | [place] [address] | | | | | | [phone] | | | | | | | | +--------+ + + + + | 09/22/ | Appointment | Procedural Care Unit | | | | 2018 | | | | | +--------+ + + + + | 09/22/ | Appointment | Gastroenterology | Carroll Sosa MD | | | 2019 | | | [address] | | | | | | [address], | | | | | | [place] [address] | | | | | | [phone] | | | | | | | [...] - | [address] | [place], [place] | [phone] | | [place] | | | | [...] [address] | [place] | [phone] | | [place] | | | | [...] + + | [facility] - | [address] | [place] | [phone] | | [place] | | | | + + + + + documented in this encounter Visit Diagnoses + + | Diagnosis | + + | 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
--- OUTSIDE RECORDS SUMMARY | ~2019-09-09 | XMS | Encounter Summary ---
Demographics + + + | Address | [address] | | | [place] [address] | + + + | Home Phone | | + + + | Preferred Language | Unknown | + + + | Marital Status | | + + + | Yazidism Affiliation | NON | + + + | Race | White | + + + | Ethnic Group | Not or | + + + Author + + + | Author | [facility] | + + + | Organization | [facility] | + + + | Address | Unknown | + + + | Phone | Unavailable | + + + Support + + +---------+ + | Name | Relationship | Address | Phone | + + +---------+ + | Abhi Justice | ECON | Unknown | | + + +---------+ + Care Team Providers + +------+ + | Care Architectural Superintendent Name | Role | Phone | + +------+ + | Christofer Holguin NP | PCP | | + +------+ + Encounter Details +--------+ + + + + | Date | Type | Department | Care Team | Description | +--------+ + + + + | 07/27/ | Telephone | [facility] | Eva Hogan, | | | 2018 | | [place] [address] [address] | [address] | | | | | [address] | [address] | | | | | Mailcode: OC8D | [place], [place] | | | | | [facility] | [address] | | | | | [address], | [phone] | | | | | [address] | | | | | | [place], [place] | | | | | | [address] | | | | | | [phone] | | | +--------+ + + + [...] Rd | | | | | | [place], [place] | | | | | | [address] | | | | | | [phone] | | | | | | | | +--------+ + + + + | 09/22/ | Hospital | | Carroll Sosa MD | | | 2018 | Encounter | | [address] | | | | | | [address], | | | | | | [place] [address] | | | | | | [phone] | | | | | | | | +--------+ + + + + | 09/22/ | Appointment | Procedural Care Unit | | | | 2018 | | | | | +--------+ + + + + | 09/22/ | Appointment | Gastroenterology | Carroll Sosa MD | | | 2018 | | | [address] | | | | | | [address], | | | | | | [place] [address] | | | | | | [phone] | | | | | | | | +--------+ + + + + documented as of this encounter Visit Diagnoses Not on filedocumented in this encounter"
--- OUTSIDE RECORDS SUMMARY | ~2019-09-09 | XMS | Encounter Summary ---
Demographics + + + | Address | [address] | | | [place] [address] | + + + | Home Phone | | + + + | Preferred Language | Unknown | + + + | Marital Status | | + + + | Temple Affiliation | NON | + + + | Race | White | + + + | Ethnic Group | Not or | + + + Author + + + | Author | [facility] | + + + | Organization | [facility] | + + + | Address | Unknown | + + + | Phone | Unavailable | + + + Support + + +---------+ + | Name | Relationship | Address | Phone | + + +---------+ + | Abhi Justice | ECON | Unknown | | + + +---------+ + Care Team Providers + +------+ + | Care Bulb Brander Name | Role | Phone | + +------+ + | Christofer Holguin NP | PCP | | + +------+ + Reason for Visit + + + | Reason | Comments | + + + | Follow-up visit | | + + + Office Visit - E/M Services (Routine) + +--------+ + + + + | Status | Reason | Specialty | Diagnoses / | Referred By | Referred To | | | | | Procedures | Contact | Contact | + +--------+ + + + + | Authorized | | Hepatology | Diagnoses | Treva | Mono | | | | | Hepatic | Frank Mccollum MD | Hepatology | | | | | cirrhosis, | [address] | [address] | | | | | unspecified | [address] | [address] | | | | | hepatic | [address] | Mailcode: | | | | | cirrhosis | [place], | [facility] Center | | | | | type, | [place] [address] | for Health | | | | | unspecified | Phone: | and Healing, | | | | | whether | [phone] | [address] | | | | | ascites | Fax: | [place], [place] | | | | | present | [phone] | [address] | | | | | (HCC) Type | | Phone: | | | | | 2 diabetes | | [phone] | | | | | mellitus | | Fax: | | | | | without | | [phone] | | | | | complication | | | | | | | , without | | | | | | | long-term | | | | | | | current use | | | | | | | of insulin | | | | | | | (HCC) | | | + +--------+ + + + + Encounter Details +--------+---------+ + + + | Date | Type | Department | Care Team | Description | +--------+---------+ + + + | 02/08/ | Office | [facility] | Anat Hogan, | Liver cirrhosis | | 2019 | Visit | Center at [facility] [address] | PA[address]C [address] | secondary to FISH | | | | [address] | [address] | (HCC) (Primary Dx) | | | | Mailcode: OC8D | [place], [place] | | | | | [facility] | [address] | | | | | and Healing, | [phone] | | | | | [address] | | | | | | [place], [place] | | | | | | [address] | | | | | | [phone] | | | +--------+---------+ + + + Social History + +-------+ [...] + + documented as of this encounter Last Filed Vital Signs + + + [...] + + + documented in this encounter Progress Notes Toni Ferro MD - 02/08/2019 10:40 AM PDTHEPATOLOGY ATTENDING Note reviewed. FISH cirrhosis, Bx proven. KELY noted, but no features of AIH on Bx. Anticoagulation to be considered given PVT after risk stratification with local EGD. Toni Ferro MD, MS, FRANCOIS brass sorter Director of Clinical Hepatology [facility] Division of Gastroenterology/Hepatology nat Hogan PA-Darrius - 0 02/08/2019 10:40 AM PDT Hepatology Clinic Note 02/08/2019 PCP: Christofer Holguin NP Referring provider: Christofer Holguin NP HISTORY OF PRESENT ILLNESS Henrietta Cordero is a 38 y.o. 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 Awaiting heme visit following EGD which is scheduled locally 02/12/19. Discussed importance of completi ng recommendation Saw FINANCIAL ANALYSIS ADVISOR remains on depot, had discussed hysterectomy, not interested in IUD for co ntrol Working for DM control Quit tobacco and etoh from last visit Endorses fatigue She denies fluid accumulation in feet/ankles, fluid accumulation in abdomen, blood in bowel movements or black tarry bm's and memory or concentration changes. Diagnoses: 1. 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 Liver biopsy 03/2019: grade 3 fatty infiltration/inflammation stage 4 fibro sis 1.2. No prior decompensation (ascites/SBP, variceal bleeding, or HE) 1.3. HCC surveillance: MRI abdomen 06/2018 1.4. Variceal screening: to be performed reportedly scheduled locally 02/12/2019 1.5. 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 History of Type 2 DM 3.1 Poorly controlled A1c 11.1 01/2019 4. Metabolic syndrome 5. Back surgery/spinal stenosis and chronic back pain 6. ?Dx of PCOS 7. S/p appedenctomy 8 Psychosocial: Lives in [place], [place]. with toddler son. +tobacco use. No alcohol. Uses CBD edibles for pain control. Disability for back Review of Systems: As above MEDICATIONS Current Medication List Name Sig GABAPENTIN ORAL Take by mouth. LOSARTAN ORAL Take by mouth. PRAVASTATIN 20 MG TABLET Take 20 mg by mouth once daily. ALLERGIES: Allergies Allergen Reactions Sulfamethoxazole Unknown PHYSICAL EXAM VS: Vitals: 02/08/19 1100 BP: (!) 140/91 Pulse: 87 Resp: 18 Temp: 37.3 C (99.1 F) TempSrc: Oral Weight: 115.2 kg (254 lb) Height: 1.803 m (5' 11") PainSc: 0 - Zero GEN: Pleasant female in NAD, comfortable appearing. HEENT: anicteric, NC/AT, PERRL, oropharynx clear ABD: Mild truncal adiposity ,Soft, nontender, nondistended. NABS. No fluid wave, +spleen ti p EXT: no clubbing or peripheral edema. SKIN: No jaundice, rashes NEURO: No asterixis. LABS Lab Results Component Value Date NA 138 01/12/2019 K 3.6 01/12/2019 CL 102 06/12/2018 BICARB 22 06/12/2018 BUN 13 01/12/2019 CR 0.60 01/12/2019 GLU 217 01/12/2019 CA 9.2 06/12/2018 Lab Results Component Value Date WBC 4.7 01/12/2019 RBC 4.48 01/12/2019 HB 13.9 01/12/2019 HCT 40.4 01/12/2019 MCV 84.6 06/12/2018 MCHC 34.8 06/12/2018 RDW 44.1 06/12/2018 PLT 113 (L) 01/12/2019 MPV 9.2 (L) 06/12/2018 Lab Results Component Value Date TBILI 2.5 (H) 01/12/2019 AP 108 01/12/2019 TP 8.7 (H) 06/12/2018 ALB 4.0 01/12/2019 AST 86 (H) 01/12/2019 ALT 29 01/12/2019 Lab Results Component Value Date AFPTUMORMKR 2.6 06/12/2018 Lab Results Component Value Date FERRITIN 143 06/12/2018 IMAGING / ENDOSCOPY MRI abdomen 06/18/2018 Note: All available outside records have been reviewed in the course of this visit, and yolande ecially pertinent ones noted above. ASSESSMENT Ms. Henrietta Cordero is a 38 y.o. female who presents for evaluation and management of FISH cirrhosis seen on biopsy last year. She has had no decompensations of her liver diseas e. 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 MRI today is pending for HCC screening as well as evaluation of prior PVT. We discussed at length the formation of PVT in cirrhosis/reviewed portal hypertension. It was discussed reasoning/importance for variceal screening via EGD (which is scheduled lo anmol- she will let us know if any difficulties having this performed). Once variceal screen ing considered we discussed again hematology to discuss anticoagulation. We discussed risk/benefit of anticoagulation. Indications to consider anticoagulation would be to: 1) minimize chances of decompensation/ascites due to thrombus, 2) preserve vasculature pat ency in case of future need for transplantation. Treatment goals would be recannulization and can follow-updated on imaging today. Given concerns of PVT/clotting it would be ideal to avoid hormonal contraceptives and encou rage either copper IUD or barrier protection for control. She discussed further surgic al potential of hysterectomy, we discussed potential increased risk for hilary-operative morbi dity/mortality due to cirrhosis to be considered. Otherwise, incidentally noted isolated non-specific KELY positive which raises question of A IH but no prior biopsy evidence of AIH and given cirrhosis/DM would not push for treatment w ith steroids at this time. Can review independently prior biopsy from last year to ensure no AIH activity. Commended her efforts on better diabetic control. Discussed warning signs for progressive liver dysfunction and all questions were answered. RECOMMENDATIONS: 1. MRI pending from today 2. EGD locally via GI scheduled 02/12/19 for variceal screening 3. Pending EGD results/updated imaging vasculature would favor anticoagulation for PVT via hematology 4. DM control ongoing 5. Ultrasound +dopplers likely in 6 months pending results MRI today 6. Consideration non-hormonal option for control 7. Independent review of pathology from prior biopsy for any AIH activity 8. Return to clinic in 6 months or sooner PRN. ANAT HOGAN PA-C [facility] 6TH FLOOR [address] Mailcode: [facility] [place] [address] documented in this encounter Plan of Treatment +--------+ + + + + | Date | Type | Specialty | Care Team | Description | +--------+ + + + + | 09/22/ | Office | Hepatology | Anat Hogan, | | | 2018 | Visit | | [address] | | | | | | [address] | | | | | | [place], [place] | | | | | | [address] | | | | | | [phone] | | | | | | | | +--------+ + + + + | 09/22/ | Hospital | | Carroll Sosa MD | | | 2018 | Encounter | | [address] | | | | | | [address], | | | | | | [place] [address] | | | | | | [phone] | | | | | | | | +--------+ + + + + | 09/22/ | Appointment | Procedural Care Unit | | | | 2018 | | | | | +--------+ + + + + | 09/22/ | Appointment | Gastroenterology | Carroll Sosa MD | | | 2018 | | | [address] | | | | | | [facility] [address] [place], | | | | | | [place] [address] | | | | | | [phone] | | | | | | | | +--------+ + + + + documented as of this encounter Visit Diagnoses + + | Diagnosis | + + | 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
--- OUTSIDE RECORDS SUMMARY | ~2019-09-09 | XMS | Encounter Summary ---
Demographics + + + | Address | [address] | | | [place] [address] | + + + | Home Phone | | + + + | Preferred Language | Unknown | + + + | Marital Status | | + + + | Restoration Affiliation | NON | + + + | Race | White | + + + | Ethnic Group | Not or | + + + Author + + + | Author | [facility] | + + + | Organization | [facility] | + + + | Address | Unknown | + + + | Phone | Unavailable | + + + Support + + +---------+ + | Name | Relationship | Address | Phone | + + +---------+ + | Abhi Justice | ECON | Unknown | | + + +---------+ + Care Team Providers + +------+ + | Care Reservation Clerk Name | Role | Phone | + [...] | | | | cirrhosis, | [address] | | | | | | unspecified | [address] | | | | | | hepatic | [address] | | | | | | cirrhosis | Rd | | | | | | type, | [place], [place] | | | | | | unspecified | [address] | | | | | | whether | Phone: | | | | | | ascites | [phone] | | | | | | present | Fax: | | | | | | (HCC) | [phone] | | | | | | Procedures [...] | | | | cirrhosis, | [address] | | | | | | unspecified | [address] | | | | | | hepatic | [address] | | | | | | cirrhosis | Rd | | | | | | type, | [place], [place] | | | | | | unspecified | [address] | | | | | | whether | Phone: | | | | | | ascites | [phone] | | | | | | present | Fax: | | | | | | (HCC) | [phone] | | | | | | Procedures [...] | 2019 | Encounter | Lab at [facility] [address] | [address] [facility] | | | | | [address] Mailcode: | [address] | | | | | [address] [facility] | [place], [place] | | | | | [facility], | [address] | | | | | [address] | [phone] | | | | | [place], [place] | | | | | | [address] | | | | | | [phone] | | | +--------+ + + + [...] 2018 | Visit | | [address] | | | | | | [address] | | | | | | [place], [place] | | | | | | [address] | | | | | | [phone] | | | | | | | | +--------+ + + + + | 09/22/ | Hospital | | Carroll Sosa MD | | | 2019 | Encounter | | [address] | | | | | | [address] [facility] | | | | | | [place] [address] | | | | | | [phone] | | | | | | | | +--------+ + + + + | 09/22/ | Appointment | Procedural Care Unit | | | | 2018 | | | | | +--------+ + + + + | 09/22/ | Appointment | Gastroenterology | Carroll Sosa MD | | | 2018 | | | [address] | | | | | | [address], | | | | | | [place] [address] | | | | | | [phone] | | | | | | | [...] Rm MD 02/08/2019 6:49 PM Preliminary: Abhilash Pnio MD | | 02/08/2019 11:52 AM Dictation [...]
--- OUTSIDE RECORDS SUMMARY | ~2019-09-09 | XMS | Encounter Summary ---
Demographics + + + | Address | [address] | | | [place] [address] | + + + | Home Phone | | + + + | Preferred Language | Unknown | + + + | Marital Status | | + + + | Alevism Affiliation | NON | + + + | Race | White | + + + | Ethnic Group | Not or | + + + Author + + + | Author | [facility] | + + + | Organization | [facility] | + + + | Address | Unknown | + + + | Phone | Unavailable | + + + Support + + +---------+ + | Name | Relationship | Address | Phone | + + +---------+ + | Abhi Justice | ECON | Unknown | | + + +---------+ + Care Team Providers + +------+ + | Care Customs Compliance Director Name | Role | Phone | [...] Order | | 2017 | | Center [place] [address] [address] | [address] | | | | | [address] | [address] | | | | | Mailcode: OC8D | [place], [place] | | | | | [facility] | [address] | | | | | and [address], | [phone] | | | | | [address] | | | | | | [place], [place] | | | | | | [address] | | | | | | [phone] | | | +--------+ + + + [...] | 2019 | Visit | | [address] [facility] | | | | | | [address] | | | | | | [place], [place] | | | | | | [address] | | | | | | [phone] | | | | | | | | +--------+ + + + + | 09/22/ | Hospital | | Carroll Sosa MD | | | 2018 | Encounter | | [address] | | | | | | [address] [place], | | | | | | [place] [address] | | | | | | [phone] | | | | | | | [...] | | | | | [address] [place], | | | | | | [place] [address] | | | | | | [phone] | | | | | | | | +--------+ + + + + documented as of this encounter Visit Diagnoses + + | Diagnosis | + + | Hepatic cirrhosis, unspecified hepatic cirrhosis type (HCC) - Primary | + + documented in this encounter"
--- OUTSIDE RECORDS SUMMARY | ~2019-09-09 | XMS | Encounter Summary ---
Demographics + + + | Address | [address] | | | [place] [address] | + + + | Home Phone [...] Team Providers + +------+ + | Care Franchise Manager Name | Role | Phone | [...] | 2019 | | Center at [facility] [address] | PA[address] | | | | | [address] | [address] | | | | | Mailcode: OC8D | [place], [place] | | | | | [facility] | [address] | | | | | and [address], | [phone] | | | | | [address] | | | | | | [place], [place] | | | | | | [address] | | | | | | [phone] | | | +--------+ + + + [...] | 2019 | Visit | | [address] [facility] | | | | | | [address] | | | | | | [place], [place] | | | | | | [address] | | | | | | [phone] | | | | | | | | +--------+ + + + + | 09/22/ | Hospital | | Carroll Sosa MD | | | 2018 | Encounter | | [address] | | | | | | [address] [place], | | | | | | [place] [address] | | | | | | [phone] | | | | | | | [...] | | | | | [address] [place], | | | | | | [place] [address] | | | | | | [phone] | | | | | | | | +--------+ + + + + documented as of this encounter Visit Diagnoses Not on filedocumented in this encounter"
--- OUTSIDE RECORDS SUMMARY | ~2019-09-09 | XMS | Encounter Summary ---
Demographics + + + | Address | [address] | | | [place] [address] | + + + | Home Phone | | + + + | Preferred Language | Unknown | + + + | Marital Status | | + + + | Yarsanism Affiliation | NON | + + + | Race | White | + + + | Ethnic Group | Not or | + + + Author + + + | Author | [facility] | + + + | Organization | [facility] | + + + | Address | Unknown | + + + | Phone | Unavailable | + + + Support + + +---------+ + | Name | Relationship | Address | Phone | + + +---------+ + | Abhi Justice | ECON | Unknown | | + + +---------+ + Care Team Providers + +------+ + | Care Electromechanical Equipment Assembler Name | Role | Phone | + [...] Closed | | Radiology | Diagnoses | Dickerson, | | | | | | Hepatic | Anat Webb, | | | | | | cirrhosis, | PA-C [address] | | | | | | unspecified | [address] | | | | | | hepatic | [address] | | | | | | cirrhosis | Rd | | | | | | type, | [place], [place] | | | | | | unspecified | [address] | | | | | | whether | Phone: | | | | | | ascites | [phone] | | | | | | present | Fax: | | | | | | (HCC) | [phone] | | | | | | Procedures | | | | | | | MRI ABDOMEN | | | | | | | WWO CONTRAST | | | +--------+--------+ + + + + PROC - Dept/Practice Procedure (Routine) +--------+--------+ + + + + | Status | Reason | Specialty | Diagnoses / | Referred By | Referred To | | | | | Procedures | Contact | Contact | +--------+--------+ + + + + | Closed | | Gastroenterol | Diagnoses | Dickerson, | Gas Endo | | | | ogy | Hepatic | Anat Webb, | [address] [address] | | | | | cirrhosis, | PA-C [address] | | | | | unspecified | [address] | Mailcode: | | | | | hepatic | [address] | [facility] | | | | | cirrhosis | Rd | for Health | | | | | type, | [place], [place] | and Healing, | | | | | unspecified | [address] | [address] | | | | | whether | Phone: | [place], [place] | | | | | ascites | [phone] | [address] | | | | | present | Fax: | Phone: | | | | | (HCC) | [phone] | [phone] | | | | | Procedures | | Fax: | | | | | CONSULT TO | | [phone] | | | | | GI PROCEDURE | | | | | | | UNIT: EGD | | | | | | | CA UPPER GI | | | | | | | ENDOSCOPY,BI | | | | | | | OPSY | | | +--------+--------+ + + + + Reason for Visit + + + | Reason | Comments | + + + | New patient | | | consultation | | + + + Intake Referral (Routine) +--------+--------+ + + + + | Status | Reason | Specialty | Diagnoses / | Referred By | Referred To | | | | | Procedures | Contact | Contact | +--------+--------+ + + + + | Closed | | Hepatology | Diagnoses | Treva, | Gas | | | | | Fibrosis | Frank Mccollum MD | Hepatology | | | | | and | [address] | [facility] [address] | | | | | cirrhosis of | [address] | [address] | | | | | liver | [address] | Mailcode: | | | | | Fatty | [place], | [facility] | | | | | (change of) | [place] [address] | for Health | | | | | liver, not | Phone: | and Healing, | | | | | elsewhere | [phone] | [address] | | | | | classified | Fax: | [place], [place] | | | | | | [phone] | [address] | | | | | | | Phone: | | | | | | | [phone] | | | | | | | Fax: | | | | | | | [phone] | +--------+--------+ + + + + Encounter Details +--------+---------+ + + + | Date | Type | Department | Care Team | Description | +--------+---------+ + + + | 06/12/ | Office | Digestive Health | Anat Dickerson, | Hepatic cirrhosis, | | 2018 | Visit | [facility] [address] | [address] | unspecified hepatic | | | | [address] | [address] | cirrhosis type, | | | | Mailcode: [address] | [place], [place] | unspecified whether | | | | [facility] | [address] | ascites present | | | | and Healing, | [phone] | (HCC) (Primary Dx); | | | | [address] | | Type 2 diabetes | | | | [place], [place] | | mellitus without | | | | [address] | | complication, | | | | [phone] | | without long-term | | | | | | current use of | | | | | | insulin ([facility]) | +--------+---------+ + + + Social History [...] + + + | Blood Pressure | 154/100 | 06/12/2018 8:17 AM | | | | | PDT | | + + + + + | Pulse | 106 | 06/12/2018 8:17 AM | | | | | PDT | | + + + + + | Temperature | 37.5 C (99.5 F) | 06/12/2018 8:17 AM | | | | | PDT | | + + + + + | Respiratory Rate | 16 | 06/12/2018 8:17 AM | | | | | PDT | | + + + + + | Oxygen Saturation | - | - | | + + + + + | Inhaled Oxygen | - | - | | | Concentration | | | | + + + + + | Weight | 113.6 kg (250 lb 8 | 06/12/2018 8:17 AM | | | | oz) | PDT | | + + + + + | Height | 177.8 cm (5' 10") | 06/12/2018 8:17 AM | | | | | PDT | | + + + + + | Body Mass Index | 35.94 | 06/12/2018 8:17 AM | | | | | PDT | | + + + + + documented in this encounter Progress Notes Toni Ferro MD - 06/12/2018 8:20 AM PDTHEPATOLOGY ATTENDING Note reviewed. Agree with hepatic evaluation and HCC surveillance for cirrhosis care. Toni Ferro MD, MS, FRANCOIS awning hanger supervisor Director of Clinical Hepatology [facility] Division of Gastroenterology/Hepatology nat Dickerson PA-C - 0 06/12/2018 8:20 AM PDT Hepatology Clinic Note 06/12/2018 PCP: Christofer Holguin NP Referring provider: Frank Tilley MD HISTORY OF PRESENT ILLNESS Henrietta Dougherty is a 38 y.o. female with history of recent liver biopsy demonstrating cirrhosis , who presents for evaluation She is accompanied by her and young son. She is anxious what these new findings might mean for her. She recalls periodic history of prior abnormal liver enzymes over the years. Was previously remotely on treatment for DM then lost weight and off medications. Weight has crept back on after of her son. She has had high blood pressure since a teenager. She presented with acute abdominal pain in March with an ED ultrasound reported demonstrating gallstones which prompted cholecystectomy. During the time of operation the liver was biops ied with results consistent with cirrhosis. She denies fluid accumulation in feet/ankles, fluid accumulation in abdomen, blood in bowel movements or black tarry bm's and memory or concentration changes. Notes "discomfort" along her right side to right flank when she moves/lies on her Right alessandro e Diagnoses: 1. 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 Liver biopsy 03/2019: grade 3 fatty infiltration/inflammation stage 4 fibrosis 1.2. No prior decompensation (ascites/SBP, variceal bleeding, or HE) 1.3. HCC surveillance: to be performed 1.4. Variceal screening: to be performed 1.5. HBV and HCV negative, recommend vaccination HAV and HBV 2.Cholecystectomy 03/2018 for acute cholecystitis 3. History of Type 2 DM 3. Metabolic syndrome 4. Back surgery/spinal stenosis and chronic back pain 5. ?Dx of PCOS 6. S/p appedenctomy 7 Psychosocial: Lives in [place], [place]. with toddler son. +tobacco use. No alcohol. Uses CBD edibles for pain control. Disability for back Review of Systems: As above MEDICATIONS Current Medication List Name Sig GABAPENTIN ORAL Take by mouth. LOSARTAN ORAL Take by mouth. PRAVASTATIN 20 MG TABLET Take 20 mg by mouth once daily. FAMILY HISTORY No known family history of liver disease ALLERGIES: Sulfas PHYSICAL EXAM VS: Filed Vitals: 06/12/2018 8:17 AM Height: 1.778 m (5' 10") Weight: 113.6 kg (250 lb 8 oz) BP: 154/100 Pulse: 106 Temp: 37.5 C (99.5 F) TempSrc: Oral Resp: 16 PainSc: 02 - Mild BMI: 35.94 kg/(m^2) GEN: Pleasant female in NAD, comfortable appearing. HEENT: anicteric, NC/AT, PERRL, oropharynx clear, +hirsutism ABD: Obese, Soft, some tenderness in RUQ, nondistended. NABS. Liver palpated below costal m argin EXT: no clubbing or peripheral edema. SKIN: No jaundice, rashes, +tattoos NEURO: No asterixis. LABS 03/2018 WBC 7.8, Hgb 12.6, Plt 192 Na 131, Cr 0.75 AST 33, ALT 13, AP 69, t bili 4.1, direct bili 0.7 (indirect 3.4) INR 1 HAV negative HBsAg negative HBsAb negative HBcAb negative HCV negative IMAGING / ENDOSCOPY Pathology 03/2018 Note: All available outside records have been reviewed in the course of this visit, and yolande ecially pertinent ones noted above. ASSESSMENT Ms. Henrietta Dougherty is a 38 y.o. female who presents for evaluation and management of cirrhosis due to suspected FISH. She has suffered no complications of chronic liver disease , such as ascites, variceal bleeding, hepatic encephalopathy, spontaneous bacterial peritoni tis, or hepatocellular carcinoma. Cirrhosis is confirmed on biopsy but no evidence of decompensations. Review of her prior laboratory testing noted for indirect hyperbilirubinemia, query if this is component gilbert's vs hemolysis post-op. Will recheck liver testing and blood counts today. Given risks of metabolic syndrome/PCOS this is likely FISH which unfortunately has led to c irrhosis (may be present in about 20% of cases) despite no other risk factors for chronic li ana m disease. We discussed the natural history of cirrhosis and potential risks including hepatocellular carcinoma and portal hypertension. Clinically, she appears well compensated and we discussed the need for ongoing chronic monitoring as well as warning signs for progressive liver dise ase. At this time no current treatments for FISH nor fibrosis but can focus on glucose control a nd gradual weight loss (goal of about ~10% body weight) to help with liver function. We discussed there are no present indications/need for liver transplantation. Will arrange for MRI abdomen for HCC screening as well as EGD for variceal screening at thi s time. She will need semi-annual HCC screening, MRI now but likely ultrasound abdomen locally then in 6 months Will check for other causes of hereditary/chronic liver disease on blood work today. HAV and HBV vaccination advised via PCP. ETOH avoidance advised. No more than 2000mg acetam inophen in 24 hrs and avoidance NSAIDS in cirrhosis advised. RECOMMENDATIONS: 1. CMP, CBC, INR, direct bili, AFP, Iron studies, A1AT, ceruloplasmin, KELY, ASMA, Anti-lkm , AMA, TSH now 2. Will arrange for MRI abdomen for baseline imaging/HCC screening 3. Ultrasound abdomen/MRI or liver CT every 6 months +AFP 4. Referral for EGD for variceal screening 5. Gradual weight loss advised 6. Avoidance NSAIDS, etoh 7. CMP, CBC, INR, AFP in 6 months via PCP 8. HAV/HBV vaccination via PCP 9. Return to clinic in 12 months (due to distance) or sooner PRN. ANAT DICKERSON PA-C [facility] 6TH FLOOR [address] Mailcode: [place] [address] Counseling Time: I spent more than 45 minutes with the patient. Greater than 50% of the isabela e was spent in education and counseling the patient regarding the natural history and progno sis of their disease. documented in this encounter Plan of Treatment +--------+ + + + + | Date | Type | Specialty | Care Team | Description | +--------+ + + + + | 09/22/ | Office | Hepatology | Anat Dickerson, | | | 2018 | Visit | | [address] [facility] | | | | | | [address] | | | | | | [place], [place] | | | | | | [address] | | | | | | [phone] | | | | | | | | +--------+ + + + + | 09/22/ | Hospital | | Carroll Sosa MD | | | 2018 | Encounter | | [address] | | | | | | [address] [facility], | | | | | | [place] [address] | | | | | | [phone] | | | | | | | | +--------+ + + + + | 09/22/ | Appointment | Procedural Care Unit | | | | 2018 | | | | | +--------+ + + + + | 09/22/ | Appointment | Gastroenterology | Carroll Sosa MD | | | 2018 | | | [address] | | | | | | [address] [place], | | | | | | [place] [address] | | | | | | [phone] | | | | | | | | +--------+ + + + + documented as of this encounter Results MRI ABDOMEN WWO CONTRAST [...] | | | 11:52 AM Dictation initiated: Abhilash Pino MD 02/08/2019 9:31 AM | | + + + + + | Procedure Note | + + | Service Account, [email or web address] Res In Interface - 02/08/2019 6:50 PM [...] necessary, edited the report. I agree with th e report as now presented. | | [...] | | | + +---------+ + + TSH W/REFLEX TO FREE T4(IF [...] | + + + + + | [facility] | [address] | [place] [address] | | | SERVICES, CORE | PARK [...] [facility] | [address] | [place] [address] | | | SERVICES, CORE | [address]LEY [...] + + | [facility] | [address] | [place] [address] | | | SERVICES, CORE | PARK [...] | + + + + + | [facility] | [address] | [place] [address] | | | SERVICES, CORE | BERKLEY [...] | | | LABORATORY | | | CANADIAN | | | SERVICES, | | | [...] | + + + + + | [facility] | [address] | [place] [address] | | | SERVICES, CORE | PARK [...] | + + + + + | [facility] | [address] | [place] [address] | | | SERVICES, CORE | PARK [...] | + + + + + | [facility] | [address] | [place] [address] | | | SERVICES, RICHARD | [address] | | | + [...] | | | | type 2.Performed by [facility] | | | | | | Laboratories,[address] | | | | | | Juan Miguel Reynolds, [facility],[place] | | | | | | [address] | | | | | | [phone].[employer]. | | | | | | acadia healthcareMarcus MD, | | | | | | [...] [facility] | [address] | [place], [place] | | | UNIV PTH - INT | | [address] | | + + + + + [...] | | | | | SARD.Performed by [facility] | | | | | | [facility],Randy [address]ard | | | | | | [place] [address] | | | | | | [phone].[facility]. | | | | | | Marcus [...] [facility] | [address] | [place], [place] | | | UNIV PTH - INTFC | | [address] | | + + + + + [...] | | | antibodies (AMA), | | [place] | | | | anti-smooth muscle | [...] + | [facility] - | [address] | [place] [address] | | | [place] | | | [...] + | [facility] - | [address] | [place] [address] | | | [place] | | | | + + + + + CERULOPLASMIN, SERUM (06/12/2018 9:23 AM PDT) + + + + + + | Component | Value | Ref Range | Performed | Pathologist | | | | | At | Signature | + + + + + + | CERULOPLASM | 31Comment: REFERENCE | 17 - 54 mg/dL | [facility] | | | IN | INTERVAL: Ceruloplasmin | | REG UNIV | | | | Access complete set of | | PTH - INTFC | | | | age- and/or | | | | | | gender-specific | | | | | | reference intervals for | | | | | | this test in the [employer] | | | | | | Laboratory Test | | | | | | Directory | | | | | | ([employer]).Performed | | | | | | by [facility],[address] | | | | | | Juan Miguel Reynolds, [facility],[place] | | | | | | [address] | | | | | | [phone].Specialized Tech. | | | | | | [facility], Marcus Hoyt MD, | | | | [...] [facility] | [address] | [place], [place] | | | UNIV PTH - INTFC | | [address] | | + + + + + [...] - INTFC | | | | by [facility],[address] | | | | | | Juan Miguel Rodolfo, [facility],[place] | | | | | | [address] | | | | | | [phone].[facility]. | | | | | | Marcus [...] [facility] | [address] | [place], [place] | | | LENARD JIANG - NEVIN | | [address] | | + + + + + documented in this encounter Visit Diagnoses + + | Diagnosis | + + | Hepatic cirrhosis, unspecified hepatic cirrhosis type, unspecified whether ascites | | present (HCC) - Primary | + + | Type 2 diabetes mellitus without complication, without long-term current use of | | insulin (HCC) | + + documented in this encounter
--- OUTSIDE RECORDS SUMMARY | ~2019-09-09 | XMS | Clinical Summary ---
Demographics + + + | Address | [address] | | | [place] [address] | + + + | Home Phone [...] Team Providers + +------+ + | Care Food Service Team Member Name | Role | Phone | + +------+ + | Christofer Holguin NP | PCP | | + +------+ + Source Comments BETO is fully live on both [facility] Ambulatory and [facility] InPatient.[facility] Allergies + + + + [...] | 2019 | Visit | | [address] | | | | | | [address] | | | | | | [place], [place] | | | | | | [address] | | | | | | [phone] | | | | | | | | +--------+ + + + + | 09/22/ | Hospital | | Carroll Sosa MD | | | 2018 | Encounter | | [address] | | | | | | [address] [place], | | | | | | [place] [address] | | | | | | [phone] | | | | | | | [...] | | | | | | [place] [address] | | | | | | [phone] | | | | | | | [...] | | | | | | | [address] | | + +--------+ +--------+ + +--------+ | | CHAMPV | xxxxxxxxx | Effect | [phone] | | Indemn | | | A [...] Person | Self | [birth year] | [address] | | Elysia | francisco/Art | | 1980 | [phone] | [place] [address] | | | scarlett | | | 0 (Home) | | + +--------+ +--------+ + +
--- OUTSIDE RECORDS SUMMARY | ~2019-09-09 | XMS | Encounter Summary ---
Demographics + + + | Address | [address] | | | [place] [address] | + + + | Home Phone | | + + + | Preferred Language | Unknown | + + + | Marital Status | | + + + | Samaritan Affiliation | NON | + + + | Race | White | + + + | Ethnic Group | Not or | + + + Author + + + | Author | [facility] | + + + | Organization | [facility] | + + + | Address | Unknown | + + + | Phone | Unavailable | + + + Support + + +---------+ + | Name | Relationship | Address | Phone | + + +---------+ + | Abhi Justice | ECON | Unknown | | + + +---------+ + Care Team Providers + +------+ + | Care Marketing Communications Specialist Name | Role | Phone | + +------+ + | Christofer Holguin NP | PCP | | + +------+ + Encounter Details +--------+ + + + + | Date | Type | Department | Care Team | Description | +--------+ + + + + | 12/04/ | Telephone | [facility] | Eva Hogan, | | | 2019 | | [place] [address] [address] | [address] | | | | | [address] | [address] | | | | | Mailcode: [address] | [place], [place] | | | | | [facility] | [address] | | | | | [address], | [phone] | | | | | [address] | | | | | | [place], [place] | | | | | | [address] | | | | | | [phone] | | | +--------+ + + + [...] Rd | | | | | | [place], [place] | | | | | | [address] | | | | | | [phone] | | | | | | | | +--------+ + + + + | 09/22/ | Hospital | | Carroll Sosa MD | | | 2018 | Encounter | | [address] | | | | | | [address], | | | | | | [place] [address] | | | | | | [phone] | | | | | | | | +--------+ + + + + | 09/22/ | Appointment | Procedural Care Unit | | | | 2018 | | | | | +--------+ + + + + | 09/22/ | Appointment | Gastroenterology | Carroll Sosa MD | | | 2019 | | | [address] | | | | | | [address], | | | | | | [place] [address] | | | | | | [phone] | | | | | | | [...] [address] | [place], [place] | [phone] | | [place] | | | | [...] [address] | [place], [place] | [phone] | | [place] | | | | [...] [address] | [place], [place] | [phone] | | [place] | | | | [...]
--- OUTSIDE RECORDS SUMMARY | ~2019-09-09 | XMS | Encounter Summary ---
Demographics + + + | Address | [address] | | | [place] [address] | + + + | Home Phone [...] Team Providers + +------+ + | Care Tip Finisher Name | Role | Phone | + [...] | | | | cirrhosis, | PA-C [address] | | | | | | unspecified | [address] | | | | | | hepatic | [address] | | | | | | cirrhosis | Rd | | | | | | type, | [place], [place] | | | | | | unspecified | [address] | | | | | | whether | Phone: | | | | | | ascites | [phone] | | | | | | present | Fax: | | | | | | (HCC) | [phone] | | | | | | Procedures [...] | | | | | type, | [place], [place] | and Healing, | | | | | unspecified | [address] | [address] | | | | | whether | Phone: | [place], [place] | | | | | ascites | [phone] | [address] | | | | | present | Fax: | Phone: | | | | | (HCC) | [phone] | [phone] | | | | | Procedures | | Fax: | | | | | CONSULT TO | | [phone] | | | | | GI PROCEDURE | | | | | | | UNIT: EGD | | | | | | | [place] UPPER GI | | | | | [...] | | | (change of) | [place] [address] | for Health | | | | | liver, not | Phone: | and Healing, | | | | | elsewhere | [phone] | [address] | | | | | classified | Fax: | [place], [place] | | | | | | [phone] | [address] | | | | | | | Phone: | | | | | | | [phone] | | | | | | | Fax: | | | | | | | [phone] | +--------+--------+ + + + + Encounter Details +--------+---------+ + + + | Date | Type | Department | Care Team | Description | +--------+---------+ + + + | 06/12/ | Office | [facility] | Anat Dickerson, | Hepatic cirrhosis, | | 2018 | Visit | [facility] at [facility] | PABaudilioC [address] | unspecified hepatic | | | | [address] | [address] | cirrhosis type, | | | | Mailcode: OC8D | [place], [place] | unspecified whether | | | | [facility] | [address] | ascites present | | | | and Healing, | [phone] | (HCC) (Primary Dx); | | | | [address] | | Type 2 diabetes | | | | [place], [place] | | mellitus without | | | | [address] | | complication, | | | | [phone] | | without long-term | | | | | | current use of | | | | | | insulin ([facility]) | +--------+---------+ + + + Social History [...] cirrhosis care. Toni Ferro MD, MS, FRANCOIS electrical controls technician Director of Clinical Hepatology [facility] Division of Gastroenterology/Hepatology nat Dickerson PA-C - [...] 6. S/p appedenctomy 7 Psychosocial: Lives in [place], [place]. with toddler son. +tobacco use. No [...] distance) or sooner PRN. ANAT DICKERSON PA-C [facility] 6TH FLOOR [address] Mailcode: [place] [address] Counseling Time: I spent more [...] 2018 | Visit | | LARS [address] [facility] | | | | | | [address] | | | | | | [place], [place] | | | | | | [address] | | | | | | [phone] | | | | | | | | +--------+ + + + + | 09/22/ | Hospital | | Carroll Sosa MD | | | 2018 | Encounter | | [address] | | | | | | [address] [facility], | | | | | | [place] [address] | | | | | | [phone] | | | | | | | [...] | | | | | | [place] [address] | | | | | | [phone] | | | | | | | [...] Note | + + | Service Account, [employer] Res In Interface - 02/08/2019 6:50 PM [...] | + + + + + | [facility] | [address] | [place] [address] | | | SERVICES, CORE | PARK [...] [facility] | [address] | [place] [address] | | | SERVICES, CORE | BERKLEY [...] | [facility] | [address] [facility] | [place] [address] | | | SERVICES, CORE | PARK [...] | + + + + + | [facility] | [address] | [place] [address] | | | SERVICES, CORE | BERKLEY [...] | | | LABORATORY | | | AFGHAN | | | SERVICES, | | | [...] | + + + + + | [facility] | [address] | [place] [address] | | | SERVICES, CORE | PARK [...] | + + + + + | [facility] | [address] | [place] [address] | | | SERVICES, CORE | PARK [...] | + + + + + | [facility] | [address] | [place] [address] | | | SERVICES, RICHARD | BERKLEY [...] | | | | type 2.Performed by [facility] | | | | | | Laboratories,[address] | | | | | | [address], [facility],[place] | | | | | | [address] | | | | | | [phone].[facility]. | | | | | | blue [...] [facility] | [address] | [place], [place] | | | UNIV PTH - INT | | [address] | | + + + + + [...] | | | | | SARD.Performed by [facility] | | | | | | [facility],Randy Bullard | | | | | | [place] [address] | | | | | | [phone].[facility]. | | | | | | [...] [facility] | [address] | [place], [place] | | | UNIV PTH - INTFC | | [address] | | + + + + + [...] | | | antibodies (AMA), | | [place] | | | | anti-smooth muscle | [...] + | [facility] - | [address] | [place] [address] | | | [place] | | | [...] + | [facility] - | [address] | [place] [address] | | | [place] | | | | + + + + + CERULOPLASMIN, SERUM (06/12/2018 9:23 AM PDT) + + + + + + | Component | Value | Ref Range | Performed | Pathologist | | | | | At | Signature | + + + + + + | CERULOPLASM | 31Comment: REFERENCE | 17 - 54 mg/dL | [facility] | | | IN | INTERVAL: Ceruloplasmin | | REG UNIV | | | | Access complete set of | | PTH - INTFC | | | | age- and/or | | | | | | gender-specific | | | | | | reference intervals for | | | | | | this test in the [facility] | | | | | | Laboratory Test | | | | | | Directory | | | | | | (Moxtra).Performed | | | | | | by [facility],[address] | | | | | | [address], [facility],[place] | | | | | | [address] | | | | | | [phone]. | | | | | | [facility] Marcus Hoyt MD, | | | | [...] [facility] | [address] | [place], [place] | | | UNIV PTH - INTFC | | [address] | | + + + + + [...] - INTFC | | | | by [facility],[address] | | | | | | [address], [facility],[place] | | | | | | [address] | | | | | | [phone].[facility]. | | | | | | Marcus [...] [facility] | [address] | [place], [place] | | | LENARD JIANG - NEVIN | | [address] | | + + + + + [...]
--- OUTSIDE RECORDS SUMMARY | ~2019-09-09 | XMS | Encounter Summary ---
Demographics + + + | Address | [address] | | | [place] [address] | + + + | Home Phone | | + + + | Preferred Language | Unknown | + + + | Marital Status | | + + + | Confucianist Affiliation | NON | + + + | Race | White | + + + | Ethnic Group | Not or | + + + Author + + + | Author | [facility] | + + + | Organization | [facility] | + + + | Address | Unknown | + + + | Phone | Unavailable | + + + Support + + +---------+ + | Name | Relationship | Address | Phone | + + +---------+ + | Abhi Justice | ECON | Unknown | | + + +---------+ + Care Team Providers + +------+ + | Care Shot Fireman Name | Role | Phone | + [...] | | | | type, | [place] [address] | for Health | | | | | unspecified | Phone: | and Healing, | | | | | whether | [phone] | [address] | | | | | ascites | Fax: | [place], [place] | | | | | present | [phone] | [address] | | | | | (HCC) Type | | Phone: | | | | | 2 diabetes | | [phone] | | | | | mellitus | | Fax: | | | | | without | | [phone] | | | | | complication | [...] | 2019 | Visit | Center at [facility] [address] | PA-C [address] | secondary to FISH | | | | [address] | [address] | (HCC) (Primary Dx) | | | | Mailcode: OC8D | [place], [place] | | | | | [facility] | [address] | | | | | and Healing, | [phone] | | | | | [address] | | | | | | [place], [place] | | | | | | [address] | | | | | | [phone] | | | +--------+---------+ + + + [...] local EGD. Toni Ferro MD, MS, FRANCOIS millinery designer Director of Clinical Hepatology [facility] Division of Gastroenterology/Hepatology nat Hogan PA-Darrius [...] EGD screening twice in GI office in [facility]. Awaiting heme visit following EGD which is scheduled locally 02/12/19. Discussed importance of completi ng recommendation Saw [employer]OM[employer]ASK[employer] CO[employer] remains on depot, had discussed hysterectomy, not [...] 7. S/p appedenctomy 8 Psychosocial: Lives in [place], [place]. with toddler son. +tobacco use. No [...] ANAT HOGAN PA-C [facility] 6TH FLOOR [address] Mailcode: [facility] [place] [address] documented in this encounter Plan [...] Rd | | | | | | [place], [place] | | | | | | [address] | | | | | | [phone] | | | | | | | | +--------+ + + + + | 09/22/ | Hospital | | Carroll Sosa MD | | | 2018 | Encounter | | [address] | | | | | | [address], | | | | | | [place] [address] | | | | | | [phone] | | | | | | | | +--------+ + + + + | 09/22/ | Appointment | Procedural Care Unit | | | | 2018 | | | | | +--------+ + + + + | 09/22/ | Appointment | Gastroenterology | Carroll Sosa MD | | | 2018 | | | [address] | | | | | | [facility] [address] [place], | | | | | | [place] [address] | | | | | | [phone] | | | | | | | | +--------+ + + + + documented as of this encounter Visit Diagnoses + + | Diagnosis | + + | 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
[~2019-09-09 15:39] MED LIST changes: +COREG3.125 MG PO; +FLUOXETINE HCL20 MG PO; +IBUPROFEN400 MG PO; +LANTUS100 UNITS/ SUB-Q; +OXYCODONE HCL5 MG PO; +ZYPREXA7.5 MG PO
[2019-09-09] MEDS ORDERED: KEFLEX500 MG PO (18:03)
[2019-09-09] MEDS ORDERED: NORCO 5-325 TA1 EACH PO (18:03)
--- NOTE | 2019-09-11 13:17 | CONS ---
[facility] [address] [place], [place] [address] Signed DATE OF CONSULTATION: 09/09/2019 CONSULTING PHYSICIAN: Hung Solano MD REQUESTING PHYSICIAN: Jose Miguel Wood MD PROBLEM: Right breast abscess. HISTORY OF PRESENT ILLNESS: This 39-year-old white woman is known to me from the past having undergone laparoscopic cholecystectomy for cholecystitis with incidental findings of advanced cirrhosis of the liver. This was in March 2018. The patient was referred to the emergency room by DEB Jorge for a recurrent right breast abscess and "possible sepsis." Her presentation in the emergency room showed no sign of tachycardia, hypotension, fever, or other signs typical of sepsis. She was evaluated by Dr. Wood, who noted an abscess in the inferior aspect of her right central breast in the inframammary crease area, which was not yet necessitating, but markedly fluctuant. I was called for evaluation. The patient denies any fever or chills today, though her temperature was as high as 101 yesterday. She does have diabetes and is chronically anticoagulated on the basis of a portal vein thrombosis diagnosed in the past. She has not had a mammogram in quite some time. She does have a family history of breast cancer in her mother. REVIEW OF SYSTEMS: She denies any chest pain, shortness of breath, or tachypnea. She has had no nipple discharge. Denies any trauma to the right breast. She has had multiple abscess drainages of the right breast in the past by Sobia Garnica. PHYSICAL EXAMINATION: Electronically Signed By: HUNG SOLANO MD 09/11/19 1317 PATIENT NAME: ALLIE FERNÁNDEZ CONSULTATION DATE OF : 78 REPORT #: [id number] PHYSICIAN: HUNG SOLANO MD PCP: DARRELL AMOS REPORT IS CONFIDENTIAL AND NOT TO BE RELEASED WITHOUT AUTHORIZATION [facility] [address] [place], [place] [address] Signed GENERAL: Obese white woman, who does not look systemically toxic. Mucous membranes are moist. Trachea is midline. CHEST: Shows normal respiratory excursion. There is no tachypnea. ABDOMEN: Obese, but soft. There is no tenderness. EXTREMITIES: Showed no clubbing, cyanosis, or edema. SKIN: Directed exam to the right breast shows a moderate-sized breast in the inferior aspect in the central portion as an area of fluctuance and surrounding erythema. The inframammary crease proper is normal. ASSESSMENT AND PLAN: She has a breast abscess and this is recurrent. It is uncertain if it was in the exact same areas in the past. Incision and drainage is certainly needed. Although, she is anticoagulated with Coumadin for portal vein thrombosis, I believe the drainage of this abscess could be undertaken without much problem and without significant risk of excessive bleeding even in the emergency room setting given its appearance. She agrees with this. The risks of bleeding, infection, need for additional treatment and of course, a plan anticipated ultimately for mammogram to be obtained to rule out the (unlikely) possibility of concurrent breast cancer was reviewed with her and she agrees. MD DASH Regalado/JUAN DIEGOL /[id number] cc: Jose Miguel Wood MD Copies: JOSE MIGUEL WOOD MD ~ Electronically Signed By: HUNG SOLANO MD 09/11/19 1317 PATIENT NAME: ALLIE FERNÁNDEZ CONSULTATION DATE OF : 78 REPORT #: [id number] PHYSICIAN: HUNG SOLANO MD PCP: DARRELL AMOS REPORT IS CONFIDENTIAL AND NOT TO BE RELEASED WITHOUT AUTHORIZATION
--- NOTE | 2019-09-11 13:17 | OR ---
[facility] [address] [facility] [place], [place] [address] Signed DATE OF OPERATION: 09/09/2019 SURGEON: Hung Solano MD PREOPERATIVE DIAGNOSES: 1. Right inferior central recurrent breast abscess. 2. Obesity. 3. Hfq-zqzpcra-ylfyqtoau diabetes mellitus. POSTOPERATIVE DIAGNOSES: 1. Right inferior central recurrent breast abscess. 2. Obesity. 3. Rdx-bbksrmp-rbyxbknru diabetes mellitus. PROCEDURES: Incision and drainage of right breast abscess, placement of Nu Gauze dressing. ANESTHESIA: 1% lidocaine. INDICATION: This 39-year-old obese white woman is known to have cirrhosis of the liver and portal vein thrombosis in the past requiring ongoing anticoagulation with Coumadin. She has had recurrent breast abscesses on the right side drained by Sobia Garnica. She was seen by DEB Jorge today and referred to the emergency room for "possible sepsis" with recurrent breast abscess. Notably, the patient has had no fever, chills, hypotension, tachycardia, or other signs of systemic sepsis. I have recommended incision and drainage of the abscess under local anesthesia in the emergency room setting given its nearly necessitating nature at this time. The risks of bleeding, infection, need for additional treatment, and of course further evaluation for breast cancer going forward, all understood and agreed to by patient. FINDINGS: Foul smelling purulent material was noted from the abscess. There was not excessive trabeculation and the breast abscess did not go particularly deep into the breast, though hemostat was used to break up some loculations. She tolerated the procedure well. DESCRIPTION OF PROCEDURE: In semi-recumbent position in the emergency room, the right breast was carefully Electronically Signed By: HUNG SOLANO MD 09/11/19 1317 PATIENT NAME: ALLIE FERNÁNDEZ OPERATIVE REPORT DATE OF : 78 REPORT #: [id number] PHYSICIAN: HUNG SOLANO MD PCP: DARRELL AMOS REPORT IS CONFIDENTIAL AND NOT TO BE RELEASED WITHOUT AUTHORIZATION [facility] [address] [place], [place] [address] Signed retracted cephalad with silk tape, exposing the inferior aspect of the right breast. The area was prepared with a Betadine solution and draped sterilely. 1% lidocaine with epinephrine was injected locally. Pinch test was negative. An incision was made with an #11 blade, which allowed for egress of purulent material, which was foul smelling. Gram stain and cultures were obtained. The wound was additionally infiltrated with local anesthetic. Hemostat was used to break down some loculations and pockets. It did not appear to be excessively extensive or excessively deep in the breast at this point. Manipulation of the breast tissue allowed for egress of purulent material. The wound was then packed with 1.5 inch Nu Gauze. Small amount in total of bandage was applied. ASSESSMENT: Successful drainage of right breast abscess. Reviewed with Dr. Wood an antibiotic regimen to include coverage for MRSA will be undertaken. This will include Ancef and Bactrim currently and she will be discharged with cephalexin and Bactrim. She will call our office for an appointment. At which point, we will see her in the next 2 weeks or so. She is instructed to remove the gauze dressing tomorrow and shower. She should allow water to have contact with the area in question and keep the area clean. If she has problems of fever, chills, spreading erythema, or other issues, she will let me know or return to the ER per her preference. MD DASH Regalado/MODL /[id number] cc: Jose Miguel Wood MD Copies: JOSE MIGUEL WOOD MD ~ Electronically Signed By: HUNG SOLANO MD 09/11/19 1317 PATIENT NAME: ALLIE FERNÁNDEZ OPERATIVE REPORT DATE OF : 78 REPORT #: [id number] PHYSICIAN: HUNG SOLANO MD PCP: DARRELL AMOS REPORT IS CONFIDENTIAL AND NOT TO BE RELEASED WITHOUT AUTHORIZATION
== END 2019-09-09 18:32 | disposition home or self-care (01) ==
LOC: ED 15:39
DX: N61.1 Abscess of the breast and nipple (principal); E11.9 Type 2 diabetes mellitus without complications; Z79.01 Long term (current) use of anticoagulants; I10 Essential (primary) hypertension; F17.200 Nicotine dependence, unspecified, uncomplicated; Z88.1 Allergy status to other antibiotic agents; Z88.2 Allergy status to sulfonamides; Z79.899 Other long term (current) drug therapy; Z79.84 Long term (current) use of oral hypoglycemic drugs
CPT/HCPCS: 80053; 81001; 85025; 85610; 96365; 99283-25; J0696